=== PATIENT | male | born 1970 | race Caucasian/White ===

== ENCOUNTER 2020-07-31 02:27 | Outpatient (CLI) | payer BC, SELFPAY ==
[2020-07-31 22:41] LABS: SARS-CoV-2 RNA PCR Negative
== END 2020-07-31 02:28 | disposition home or self-care (01) ==
LOC: ANHCOVIDDT 02:27
PROVIDERS: PCP Emergency Medicine; Visit Provider Internal Medicine Gastroenterology
DX: Z01.818 Encounter for other preprocedural examination (principal); Z20.828 Contact with and (suspected) exposure to other viral communicable diseases
CPT/HCPCS: 87635; C9803; U0003

== ENCOUNTER 2020-08-03 00:08 | Day surgery (SDC) | payer BC, SELFPAY ==
[2020-07-27 15:45] VITALS: BMI 34.7
[2020-08-03 08:15] VITALS: BP 136/93; PULSE 84; RESP 16; TEMP 37.3; O2SAT 96
[2020-08-03] MEDS: LACTATED RINGERS 1,000 ML 150 ML IV CONT (08:31)
--- NOTE | 2020-08-03 08:52 | PM.HPGS ---
History of Present Illness History of Present Illness Consent: Risks, benefits, and alternatives have been discussed and questions answered. Patient agrees to proceed with procedure. Chief complaint: GERD,Neoplasm Screening Narrative: Houston Bowers is a 50 year old male with gerd on dexilant, had CT chest that showed hiatal hernia and possible esophagitis. Also needs screening colonoscopy Review of Systems Constitutional: Constitutional: Denies headache(s) and Denies weakness Eyes: Eyes: Denies blurry vision ENT: Reports Normal hearing present, Denies headache(s) and Denies neck pain Cardiovascular: Cardiovascular: Denies chest pain and Denies dyspnea Respiratory: Respiratory: Denies dyspnea Gastrointestinal: Gastrointestinal: Reports no additional gastrointestinal complaints Genitourinary: Genitourinary: Denies dysuria Musculoskeletal: Musculoskeletal: Denies neck pain Integumentary/Breasts: Skin/Breast: Denies dry skin Neurologic: Reports Normal hearing present, Denies headache(s) and Denies weakness Psychiatric: Psychiatric: Denies anxiety Endocrine: Endocrine: Denies change in body appearance Hematologic/Lymphatic: Hematologic/Lymphatic: Denies easy bleeding Allergic/Immunologic: Allergic/Immunologic: Denies urticaria PMFSH Past Medical History Medical History Abnormal CT scan Anxiety Complicated grieving Encounter for screening colonoscopy GERD (gastroesophageal reflux disease) Hiatal hernia HTN (hypertension) Surgical History Surgical History (Updated 08/03/20 @ 08:58 by Shaheed Levy MD) H/O sinus surgery History of shoulder surgery Family History Family History Other Cerebrovascular accident Family history of coronary artery disease Hypertension Social History Social History Smoking status: Never smoker Alcohol intake: never Substance use type: does not use Living arrangements: alone Spiritual care concerns: No Meds Home Medications and Allergies Home Medications Medication Instructions Recorded Confirmed Type topiramate 100 mg tablet 100 mg PO DAILY 06/24/19 07/27/20 History folic acid 1 mg tablet 1 mg PO DAILY 11/11/19 07/27/20 History hydrocodone 5 mg-acetaminophen 300 1 tablet PO BID PRN 11/11/19 07/27/20 History mg tablet rizatriptan 10 mg tablet See Rx Instructions .ROUTE 03/30/20 05/30/20 Rx .COMPLEX #30 tablet fluticasone propionate 50 1 spray NASAL DAILY 05/15/20 07/27/20 History mcg/actuation nasal spray,suspension oxymetazoline 0.05 % nasal mist 2 spray NASAL Q12H 05/15/20 07/27/20 History baclofen 20 mg tablet See Rx Instructions .ROUTE 05/30/20 07/27/20 Rx .COMPLEX #120 tablet alprazolam 0.5 mg tablet 0.5 mg PO BID PRN #30 tablet 06/29/20 07/27/20 Rx acetaminophen [Tylenol Arthritis 650 mg PO Q12H PRN 07/27/20 07/27/20 History Pain] bupropion HCl 150 mg PO DAILY 07/27/20 07/27/20 History dexlansoprazole 30 mg See Rx Instructions .ROUTE 07/27/20 07/27/20 Rx capsule,biphase delayed release .COMPLEX #90 cap diphenhydramine HCl [Benadryl] 50 mg PO HS 07/27/20 07/27/20 History escitalopram oxalate 10 mg tablet 10 mg PO DAILY #90 tablet 07/27/20 07/27/20 Rx montelukast [Singulair] 10 mg PO DAILY 07/27/20 08/03/20 History prednisone 20 mg PO DAILY 07/27/20 07/27/20 History sulfamethoxazole-trimethoprim 1 tablet PO BID 07/27/20 07/27/20 History Allergies Allergy/AdvReac Type Severity Reaction Status Date / Time No Known Allergies Allergy Verified 08/03/20 08:13 Vital Signs Vital Signs - 24 hr 08/03/20 08:15 Temperature 99.1 F Pulse Rate 84 Respiratory Rate 16 Blood Pressure 136/93 H Pulse Oximetry 96 Exam Const: General: comfortable and no acute distress HENMT: General nose exam: Normal nares present Eyes: General: appearance nor
--- NOTE | 2020-08-03 08:54 | WPDANESEPPF ---
Anes - Initial Pre Proc Eval Procedure: Operation Date: 08/03/20 09:30 Proposed Procedures p Esophagogastroduodenoscopy&Screen Colon - David Victoria MD Date/Time: 08/03/20 08:54 Surgeon: David Victoria MD Pre Op Diagnosis: GERD,Neoplasm Screening Patient Data Age: 50 Gender: M Height: 5 ft 10 in Weight: 113.6 kg Last Vital Signs Temp 37.3 C 08/03/20 08:15 Pulse 84 08/03/20 08:15 Resp 16 08/03/20 08:15 BP 136/93 H 08/03/20 08:15 Pulse Ox 96 08/03/20 08:15 Allergies Allergy/AdvReac Type Severity Reaction Status Date / Time No Known Allergies Allergy Verified 08/03/20 08:13 Home Medications Medication Instructions Recorded Confirmed Type topiramate 100 mg tablet 100 mg PO DAILY 06/24/19 07/27/20 History folic acid 1 mg tablet 1 mg PO DAILY 11/11/19 07/27/20 History hydrocodone 5 mg-acetaminophen 300 1 tablet PO BID PRN 11/11/19 07/27/20 History mg tablet rizatriptan 10 mg tablet See Rx Instructions .ROUTE 03/30/20 05/30/20 Rx .COMPLEX #30 tablet fluticasone propionate 50 1 spray NASAL DAILY 05/15/20 07/27/20 History mcg/actuation nasal spray,suspension oxymetazoline 0.05 % nasal mist 2 spray NASAL Q12H 05/15/20 07/27/20 History baclofen 20 mg tablet See Rx Instructions .ROUTE 05/30/20 07/27/20 Rx .COMPLEX #120 tablet alprazolam 0.5 mg tablet 0.5 mg PO BID PRN #30 tablet 06/29/20 07/27/20 Rx acetaminophen [Tylenol Arthritis 650 mg PO Q12H PRN 07/27/20 07/27/20 History Pain] bupropion HCl 150 mg PO DAILY 07/27/20 07/27/20 History dexlansoprazole 30 mg See Rx Instructions .ROUTE 07/27/20 07/27/20 Rx capsule,biphase delayed release .COMPLEX #90 cap diphenhydramine HCl [Benadryl] 50 mg PO HS 07/27/20 07/27/20 History escitalopram oxalate 10 mg tablet 10 mg PO DAILY #90 tablet 07/27/20 07/27/20 Rx montelukast [Singulair] 10 mg PO DAILY 07/27/20 08/03/20 History prednisone 20 mg PO DAILY 07/27/20 07/27/20 History sulfamethoxazole-trimethoprim 1 tablet PO BID 07/27/20 07/27/20 History Patient hx anesthesia problems: none Family hx anesthesia problems: none PMFSH Past Medical History Medical History Abnormal CT scan Anxiety Complicated grieving Encounter for screening colonoscopy GERD (gastroesophageal reflux disease) Hiatal hernia HTN (hypertension) Surgical History Surgical History (Updated 08/03/20 @ 08:58 by Shaheed Levy MD) H/O sinus surgery History of shoulder surgery Family History Family History Other Cerebrovascular accident Family history of coronary artery disease Hypertension Social History Social History Smoking status: Never smoker Alcohol intake: never Substance use type: does not use Living arrangements: alone Spiritual care concerns: No Anes - Eval Final PreProcedure Day of Procedure 08/03/20 08:54 Patient weight: obese Heart: regular rate and rhythm Lungs: clear to auscultation Airway: Mallampati scale class II Neurological: alert and oriented Last oral intake: >/= 8 hours ASA classification: II Emergent: no Anesthetic plan: proceed Anesthesia type and monitoring: general GIVS and standard monitoring Informed Consent: The patient's anesthetic plan and its attendant risks and benefits were discussed with the patient/family/POA. Questions were solicited and answers provided to the satisfaction of the patient/family/POA.
[2020-08-03] MEDS: BENZOCAINE (*SP) 60 ML SPRAY CAN (HURRICAINE) 1 SPRAY MUCOUS MEM (09:05)
[2020-08-03 09:37] VITALS: BP 115/70; PULSE 62; RESP 15; O2SAT 99
[2020-08-03 09:47] VITALS: BP 116/86; PULSE 55; RESP 16; O2SAT 100
[2020-08-03 09:57] VITALS: BP 127/86; PULSE 64; RESP 19; O2SAT 99
== END 2020-08-03 10:30 | disposition home or self-care (01) ==
PROVIDERS: PCP Emergency Medicine; Visit Provider Internal Medicine Gastroenterology
PROC: 0DJ08ZZ Inspection of Upper Intestinal Tract, Via Natural or Artificial Opening Endoscopic (ICD-10-PCS; CPT 43235; principal; 2020-08-03 09:30)
DX: Z12.11 Encounter for screening for malignant neoplasm of colon (principal); K29.50 Unspecified chronic gastritis without bleeding; K21.9 Gastro-esophageal reflux disease without esophagitis; K63.5 Polyp of colon; K64.8 Other hemorrhoids; F41.9 Anxiety disorder, unspecified; K44.9 Diaphragmatic hernia without obstruction or gangrene; I10 Essential (primary) hypertension; K21.00 Gastro-esophageal reflux disease with esophagitis, without bleeding
CPT/HCPCS: 43239; 45380; 88305; J2704; J7120

== ENCOUNTER 2020-09-04 22:15 | Emergency (ER) | payer BC, SELFPAY ==
--- NOTE | ~2020-09-04 | CT_ITS ---
EXAMINATION: CT brain wo con EXAM DATE: 09/05/2020 00:22 INDICATION: Severe headache. TECHNIQUE: Spiral CT of the head was performed without contrast. Axial, coronal and sagittal images were reviewed. The dose-length product (DLP) for this examination was 605.33 mGy-cm. The exposure w as tailored according to patient size, and iterative reconstruction (ASIR) was used as additional dos e reduction technique. There is no prior study for comparison. FINDINGS: There is no acute intraparenchymal hemorrhage. No evidence of intraparenchymal brain mass lesion. No evidence of acute infarction. There is no mass effect or midline shift. The ventricles are normal in size. There are no extra-axial collections. There are no acute calvarial fractures. T he orbits are unremarkable. Soft tissue is unremarkable. Mild ethmoid and maxillary mucoperiosteal thickening. Bilateral partial ethmoidectomies. IMPRESSION: 1. No acute intracranial findings. Reviewed, dictated and finalized at location A. RELIEF
--- NOTE | 2020-09-04 22:24 | ED.NAVMDI ---
HPI - Nausea/Vomiting/Diarrhea General Chief complaint: Nausea/Vomiting/Diarrhea Stated complaint: nausea, vomiting Time Seen by Provider: 09/04/20 22:24 History of Present Illness HPI Narrative: 50 yo male presents to the the for nausea. He reports that he has been haing symptoms of sinusitis for a few days. He saw his PCP today and was started on an antibiotic and steroid. After taking his first dose he became nauseated. He has not vomited. He does have a moderte headache located behind his right eye. Related Data Home Medications Medication Instructions Recorded Confirmed topiramate 100 mg tablet 100 mg PO DAILY 06/24/19 09/06/20 folic acid 1 mg tablet 1 mg PO DAILY 11/11/19 09/06/20 hydrocodone 5 mg-acetaminophen 300 1 tablet PO BID PRN 11/11/19 09/06/20 mg tablet fluticasone propionate 50 1 spray NASAL DAILY 05/15/20 09/06/20 mcg/actuation nasal spray,suspension oxymetazoline 0.05 % nasal mist 2 spray NASAL Q12H 05/15/20 09/06/20 acetaminophen [Tylenol Arthritis 650 mg PO Q12H PRN 07/27/20 09/06/20 Pain] diphenhydramine HCl [Benadryl] 50 mg PO HS 07/27/20 09/06/20 montelukast [Singulair] 10 mg PO DAILY 07/27/20 09/06/20 bupropion HCl 300 mg 24 hr tablet, 300 mg PO .daily tablet 08/06/20 09/06/20 extended release azelastine 2 spray INTRANASAL BID 09/06/20 09/06/20 Allergies Allergy/AdvReac Type Severity Reaction Status Date / Time No Known Allergies Allergy Verified 09/06/20 11:48 Review of Systems Review of Systems: All systems reviewed & are unremarkable except as noted in HPI and below Constitutional: Constitutional: Denies fever(s) and Denies weakness ENT: Denies dizziness, Reports nasal congestion and Denies sore throat Cardiovascular: Cardiovascular: Denies chest pain Respiratory: Respiratory: Denies dyspnea Gastrointestinal: Gastrointestinal: Denies abdominal pain and Reports nausea Genitourinary: Genitourinary: Denies dysuria Neurologic: Denies confusion and Denies weakness [facility] Past Medical History Medical History Abnormal CT scan Anxiety Complicated grieving Encounter for screening colonoscopy GERD (gastroesophageal reflux disease) Hiatal hernia HTN (hypertension) Surgical History Surgical History H/O sinus surgery History of shoulder surgery Family History Family History Other Cerebrovascular accident Family history of coronary artery disease Hypertension Social History Social History Smoking status: Never smoker Alcohol intake: never Substance use type: does not use Gender identity (if verbalized by the patient): Male Spiritual care concerns: No Exam Const: General: healthy appearing, no acute distress and alert Orientation/consciousness: patient oriented x3 HENMT: Ears: TM's normal bilaterally Face and sinus: sinus tenderness maxillary Eyes: Pupils: Equal, round and reactive pupils present EOM: EOMs intact bilaterally Neck: Neck: normal visual inspection and no lymphadenopathy Chest: Chest palpation & inspection: no tenderness Resp: Effort & Inspection: normal respiratory effort Auscultation: clear to auscultation bilaterally, no rales, no rhonchi and no wheezes Cardio: Jugular venous distension: no JVD Rate: regular rate Rhythm: regular rhythm Heart sounds: no murmurs GI: Inspection: non-distended GI Palp: Yes Soft to palpation and No Tenderness to palpation present (GI) Skin: General skin exam: normal color Neuro: General: patient oriented x3, moves all extremities, no focal motor deficits and CN's II-XI intact bilaterally Speech: normal speech Gait exam (Neuro): Normal gait present Extrem: General: no edema Psych: Appearance: well kempt Affect: Anxious affect present Course Vital Signs V
[2020-09-04] MEDS: SODIUM CHLORIDE 0.9% IV 1,000 ML 999 ML IV CONT (22:40)
[2020-09-04 22:43] VITALS: BP 142/105; PULSE 109; RESP 16; TEMP 37.1; O2SAT 95
[2020-09-04] MEDS: ONDANSETRON INJ 4 MG/2 ML VIAL IV PUSH (22:47)
[2020-09-04 22:48] LABS: Basophils Percent Auto 0.2 % (0.2-1.2); Eosinophils Percent Auto 0.2 % (0-4.4); Hematocrit 48.9 % (42.0-52.0); Hemoglobin 16.5 g/dL (14.0-18.0); Immature Granulocyte Absolute 0.02 K/mm3 (0.00-0.031); Immature Granulocyte Percent A 0.3 % (0-0.5); Lymphocytes Absolute Auto 1.09 K/mm3 (0.9-3.2); Lymphocytes Percent Auto 16.5 % (18.3-44.2); Mean Corpuscular HGB Conc 33.7 g/dl (32-36); Mean Corpuscular Hemoglobin 29.9 pg (26-34); Mean Corpuscular Volume 88.6 fl (80-100); Monocytes Absolute Auto 0.5 K/mm3 (0.1-0.6); Monocytes Percent Auto 7.3 % (2.6-8.5); Neutrophils Percent Auto 75.5 % (45.5-73.1); Platelet Count Result 211 k/mm3 (150-375); Red Blood Count 5.52 M/mm3 (4.6-6.20); Red Cell Distribution Width 12.2 % (11.5-14.5); White Blood Count 6.6 K/mm3 (4.5-10.0)
[2020-09-04 23:01] LABS: Alanine Aminotransferase 51 U/L (4-50); Albumin Level 4.5 g/dL (3.5-5.1); Alkaline Phosphatase 124 U/L (38-126); Anion Gap 8 mmol/L (8-16); Aspartate Amino Transferase 48 U/L (17-59); Bilirubin,Total 0.6 mg/dL (0.2-1.3); Blood Urea Nitrogen 14 mg/dL (9-20); Calcium 9.2 mg/dL (8.4-10.2); Carbon Dioxide 22 mmol/L (22-30); Chloride 105 mmol/L (98-107); Estimated CRCL calculation 130 ml/min; Estimated Glomerular Filt Rate > 60; Glucose 121 mg/dL (75-110); Lipase 165 U/L (23-300); Potassium 4.1 mmol/L (3.4-5.0); Sodium 135 mmol/L (137-145)
[2020-09-05 00:29] VITALS: BP 164/111; PULSE 102; RESP 18; TEMP 36.9; O2SAT 95
[2020-09-05] MEDS: KETOROLAC 30 MG/ML VIAL (*BKC) IV PUSH (00:39)
[2020-09-05] MEDS: METOCLOPRAMIDE HCL INJ 10 MG/2 ML VIAL IV PUSH (00:39)
[2020-09-05 02:27] VITALS: BP 139/91; PULSE 84; RESP 18; O2SAT 96
== END 2020-09-05 03:04 | disposition home or self-care (01) ==
PROVIDERS: Emergency Provider Emergency Medicine; PCP Emergency Medicine
DX: R11.2 Nausea with vomiting, unspecified (principal); R51.9 Headache, unspecified; K21.9 Gastro-esophageal reflux disease without esophagitis; I10 Essential (primary) hypertension; F41.9 Anxiety disorder, unspecified
CPT/HCPCS: 36415; 70450; 80053; 83690; 85025; 96361; 96365; 96375; 99284; J0131; J1885; J2405; J2765; J7030

== ENCOUNTER 2020-09-06 11:43 | Emergency (ER) | payer BC, SELFPAY ==
[2020-09-06 12:01] VITALS: BP 120/90; PULSE 94; RESP 20; TEMP 37.6; O2SAT 98
--- NOTE | 2020-09-06 12:16 | ED.NAVMDI ---
HPI - Nausea/Vomiting/Diarrhea General Chief complaint: Nausea/Vomiting/Diarrhea Stated complaint: Vomiting Time Seen by Provider: 09/06/20 12:05 History of Present Illness HPI Narrative: Houston Bowers darryl 50 yo male with a PMH of depression, chronic pain, who has had a low-grade fever, nausea, vomiting x2 days. He feels exhausted and just generally feels poorly. Seen by primary care physician yesterday who gave him Zithromax and Zofran; is here to be evaluated, including Covid Related Data Home Medications Medication Instructions Recorded Confirmed topiramate 100 mg tablet 100 mg PO DAILY 06/24/19 09/06/20 folic acid 1 mg tablet 1 mg PO DAILY 11/11/19 09/06/20 hydrocodone 5 mg-acetaminophen 300 1 tablet PO BID PRN 11/11/19 09/06/20 mg tablet fluticasone propionate 50 1 spray NASAL DAILY 05/15/20 09/06/20 mcg/actuation nasal spray,suspension oxymetazoline 0.05 % nasal mist 2 spray NASAL Q12H 05/15/20 09/06/20 acetaminophen [Tylenol Arthritis 650 mg PO Q12H PRN 07/27/20 09/06/20 Pain] diphenhydramine HCl [Benadryl] 50 mg PO HS 07/27/20 09/06/20 montelukast [Singulair] 10 mg PO DAILY 07/27/20 09/06/20 bupropion HCl 300 mg 24 hr tablet, 300 mg PO .daily tablet 08/06/20 09/06/20 extended release azelastine 2 spray INTRANASAL BID 09/06/20 09/06/20 Allergies Allergy/AdvReac Type Severity Reaction Status Date / Time No Known Allergies Allergy Verified 09/06/20 11:48 Review of Systems Review of Systems: Narrative: has fever, chills, sweats. EYES: Denies visual changes, redness, discharge. Fatigue ENT: Denies rhinorrhea, congestion, sore throat, otalgia. CARDIOVASCULAR: Denies chest pain, palpitations, edema. RESPIRATORY: Denies dyspnea, wheezing, cough GASTROINTESTINAL: Denies abdominal pain, has nausea, vomiting, diarrhea. GENITOURINARY: Denies dysuria, hematuria, abnormal discharge SKIN: Denies rash or itching. NEUROLOGIC: Denies numbness, or focal weakness. PSYCHIATRIC: Denies anxiety or depression. [facility] Past Medical History Medical History Abnormal CT scan Anxiety Complicated grieving Encounter for screening colonoscopy GERD (gastroesophageal reflux disease) Hiatal hernia HTN (hypertension) Surgical History Surgical History H/O sinus surgery History of shoulder surgery Family History Family History Other Cerebrovascular accident Family history of coronary artery disease Hypertension Social History Social History Smoking status: Never smoker Alcohol intake: never Substance use type: does not use Gender identity (if verbalized by the patient): Male Spiritual care concerns: No Comments At time of signature, I agree with nursing past medical, surgical, social and family history. There is no relevant family history pertinent to the presenting complaint. Exam Narrative: Exam Narrative: GENERAL: This is a well-nourished, well-developed patient, looks like he is not feeling well HEAD: normocephalic, atraumatic. EYES: Sclera clear/white. Vision is grossly intact. EARS: External ears normal, . Hearing grossly intact. NOSE: External nose normal without nasal discharge, nares without redness, no rhinorrhea. THROAT: Mucous membranes moist, posterior pharynx erythema NECK: Neck supple, CARDIOVASCULAR: Regular rate and rhythm without murmurs, gallops, or rubs. Heart rate 94 RESPIRATORY: Clear to auscultation. Breath sounds equal bilaterally. No wheezes, rales, or rhonchi. O2 sats 98 GASTROINTESTINAL: Abdomen soft, SKIN: warm, intact with no suspicious lesions or rash, good texture and turgor. NEURO: awake, alert, and oriented to person, place and time. There were no obvious focal neurologic abnormalities. Steady gait EXTREMITIES: Normal range of motion. SUNITA
== END 2020-09-06 12:40 | disposition home or self-care (01) ==
PROVIDERS: Emergency Provider Nurse Practitioner; PCP Emergency Medicine
DX: U07.1 COVID-19 (principal); F41.9 Anxiety disorder, unspecified; K21.9 Gastro-esophageal reflux disease without esophagitis; I10 Essential (primary) hypertension
CPT/HCPCS: 87426; 99213; C9803; G0463

== ENCOUNTER → 2020-10-04 14:01 | Outpatient (CLI) | payer BC, SELFPAY ==
--- NOTE | ~2020-10-04 | XR_ITS ---
XR chest 2V DATE: 10/04/2020 14:16 INDICATION: Covid 19 pneumonia TECHNIQUE: 2 views COMPARISON: October 14, 2014 PA and lateral chest FINDINGS: Status post lower anterior cervical spine surgical fusion. Normal heart size. No hilar or mediastinal enlargement. No pulmonary infiltrate or consolidation, ple ural effusion or pulmonary vascular congestion or pneumothorax. IMPRESSION: No active cardiopulmonary disease Reviewed, dictated and finalized at location B. RANS ADVISER
== END ==
PROVIDERS: PCP Emergency Medicine; Visit Provider Emergency Medicine
DX: U07.1 COVID-19 (principal)
CPT/HCPCS: 71046

== ENCOUNTER → 2020-12-11 15:23 | Outpatient (CLI) | payer BC, SELFPAY ==
--- NOTE | ~2020-12-11 | MR_ITS ---
EXAMINATION: MR cervical spine wo/w con DATE: 12/11/2020 17:22 INDICATION: Cervical radiculopathy. Neck pain. TECHNIQUE: Magnetic resonance imaging (MRI) of the cervical spine was performed without and with 20 m L MultiHance intravenous contrast. Sequences included sagittal and axial T2-weighted FSE, sagittal ST IR FSE, and sagittal and axial T1-weighted FSE. Postcontrast sequences included sagittal and axial T1 -weighted FS FSE. COMPARISON: Cervical spine MRI 08/04/2011 FINDINGS: Bone alignment is normal. There are changes of anterior fusion procedure at C6-C7 with meta l artifact. Vertebral body heights and intervertebral disc heights are normal. The visualized portion s of the spinal cord demonstrate normal signal intensity. The following disc levels are specifically discussed: C2-C3: The disc does not extend beyond the endplate margin. There is no uncovertebral joint osteoarth ritis. There is moderate right and mild left facet joint osteoarthritis. There is mild right neural f oraminal stenosis. There is no central canal stenosis. C3-C4: There is a small central extrusion. There is mild bilateral uncovertebral joint osteoarthritis . There is severe left facet joint osteoarthritis. There is no neural foraminal stenosis. There is no central canal stenosis. C4-C5: There is a small central extrusion. There is no uncovertebral joint osteoarthritis. There is n o facet joint osteoarthritis. There is no neural foraminal stenosis. There is no central canal stenos is. C5-C6 through C7-T1: Obscured by metal artifact. IMPRESSION: 1. Anterior fusion procedure at C6-C7. Metal artifact obscures C5-T1. 2. Mild cervical spondylosis. Reviewed, dictated and finalized at location A.
[2020-12-11 16:06] LABS: Estimated Glomerular Filt Rate > 60
== END ==
PROVIDERS: PCP Emergency Medicine; Visit Provider Nurse Practitioner Family
DX: M96.1 Postlaminectomy syndrome, not elsewhere classified (principal); M47.22 Other spondylosis with radiculopathy, cervical region; Z98.1 Arthrodesis status
CPT/HCPCS: 72156; A9577

== ENCOUNTER → 2020-12-13 15:41 | Outpatient (CLI) | payer BC, SELFPAY ==
--- NOTE | ~2020-12-13 | XR_ITS ---
EXAMINATION: XR lumbar spine min 4V DATE: 12/13/2020 15:59 INDICATION: Lumbago TECHNIQUE: Anteroposterior and lateral in neutral, flexion and extension views of the lumbar spine, a nd cone-down lateral view of the lumbosacral junction were obtained. COMPARISON: Lumbar spine MR dated 06/03/2011 FINDINGS: L5-S1 anterior spinal fusion with interbody bone graft cages. There is also a fixation device positio cristina between the L4 and L5 spinous processes. 4 mm retrolisthesis L1 on L2 which is unchanged with fle xion and extension. Chronic L1 compression fracture with 40% anterior vertebral body height loss. Mil d disc height loss at L1-L2 and L4-L5. Sacrum and bilateral sacroiliac joints are unremarkable. Mild right hip osteoarthritis. Cholecystectomy clips in right upper quadrant. IMPRESSION: 1. Mild lumbar spondylosis with 4 mm retrolisthesis L1 on L2 which remains unchanged with flexion and extension. 2. Anterior spinal fusion with bone graft cages at L5-S1 and interspinous process fixation device bet ween L4 and L5. Reviewed, dictated and finalized at location A. IMPRESSION: 1. Mild lumbar spondylosis with 4 mm retrolisthesis L1 on L2 which remains unch anged with flexion and extension. 2. Anterior spinal fusion with bone graft cages at L5-S1 and interspinous proce ss fixation device between L4 and L5.
== END ==
PROVIDERS: Visit Provider Nurse Practitioner Family
DX: M47.26 Other spondylosis with radiculopathy, lumbar region (principal); M96.1 Postlaminectomy syndrome, not elsewhere classified; Z98.1 Arthrodesis status
CPT/HCPCS: 72110

== ENCOUNTER → 2021-01-22 02:07 | Outpatient (CLI) | payer BC, SELFPAY ==
[2021-01-22 23:32] LABS: SARS-CoV-2 RNA PCR Negative
== END ==
PROVIDERS: Visit Provider Internal Medicine Gastroenterology
DX: Z01.812 Encounter for preprocedural laboratory examination (principal); Z20.822 Contact with and (suspected) exposure to COVID-19
CPT/HCPCS: C9803; U0003; U0005

== ENCOUNTER 2021-01-25 01:00 | Day surgery (SDC) | payer BC, SELFPAY ==
[2021-01-18 08:46] VITALS: BMI 36.0
[2021-01-25 11:22] VITALS: BP 135/87; PULSE 61; RESP 20; TEMP 36.7; O2SAT 97; BMI 36.6
[2021-01-25] MEDS: LACTATED RINGERS 1,000 ML 150 ML IV CONT (11:28)
--- NOTE | 2021-01-25 11:37 | WPDANESEPPF ---
Anes - Initial Pre Proc Eval Procedure: Operation Date: 01/25/21 13:00 Proposed Procedures p Esophagogastroduodenoscopy - David Victoria MD Date/Time: 01/25/21 11:37 Surgeon: David Victoria MD Pre Op Diagnosis: esophagitis Patient Data Age: 50 Gender: M Height: 5 ft 10 in Weight: 115.9 kg Last Vital Signs Temp 98.0 F 01/25/21 11:22 Pulse 61 01/25/21 11:22 Resp 20 01/25/21 11:22 BP 135/87 01/25/21 11:22 Pulse Ox 97 01/25/21 11:22 Allergies Allergy/AdvReac Type Severity Reaction Status Date / Time No Known Allergies Allergy Verified 01/25/21 11:21 Home Medications Medication Instructions Recorded Confirmed Type topiramate 100 mg tablet 100 mg PO DAILY 06/24/19 01/18/21 History rizatriptan 10 mg tablet See Rx Instructions .ROUTE 03/30/20 01/18/21 Rx .COMPLEX #30 tablet fluticasone propionate 50 1 spray NASAL DAILY 05/15/20 01/18/21 History mcg/actuation nasal spray,suspension oxymetazoline 0.05 % nasal mist 2 spray NASAL Q12H PRN 05/15/20 01/18/21 History baclofen 20 mg tablet See Rx Instructions .ROUTE 05/30/20 01/18/21 Rx .COMPLEX #120 tablet acetaminophen [Tylenol Arthritis 650 mg PO Q12H PRN 07/27/20 01/18/21 History Pain] escitalopram oxalate 10 mg tablet 10 mg PO DAILY #90 tablet 07/27/20 01/18/21 Rx montelukast [Singulair] 10 mg PO DAILY 07/27/20 01/18/21 History dexlansoprazole 30 mg 30 mg PO BID 90 Days #180 cap 08/03/20 01/18/21 Rx capsule,biphase delayed release azelastine 2 spray INTRANASAL BID 09/06/20 01/18/21 History cetirizine [Zyrtec] 10 mg PO DAILY PRN #20 tablet 09/06/20 01/18/21 Rx alprazolam [Xanax] 0.5 mg PO DAILY PRN 01/18/21 01/18/21 History Patient hx anesthesia problems: none Family hx anesthesia problems: none PMFSH Past Medical History Medical History Abnormal CT scan Anxiety Complicated grieving Encounter for screening colonoscopy GERD (gastroesophageal reflux disease) Hiatal hernia HTN (hypertension) Surgical History Surgical History H/O sinus surgery History of shoulder surgery Family History Family History Other Cerebrovascular accident Family history of coronary artery disease Hypertension Social History Social History Smoking status: Never smoker Alcohol intake: never Alcohol use details: socially Substance use type: does not use Living arrangements: with family Gender identity (if verbalized by the patient): Male Spiritual care concerns: No Anes - Eval Final PreProcedure Day of Procedure 01/25/21 11:37 Patient weight: obese Heart: regular rate and rhythm Lungs: clear to auscultation Airway: Mallampati scale class II Neurological: alert and oriented Last oral intake: >/= 8 hours ASA classification: II Emergent: no Anesthetic plan: proceed Anesthesia type and monitoring: general GIVS and standard monitoring Informed Consent: The patient's anesthetic plan and its attendant risks and benefits were discussed with the patient/family/POA. Questions were solicited and answers provided to the satisfaction of the patient/family/POA.
--- NOTE | 2021-01-25 12:56 | PM.HPGS ---
History of Present Illness History of Present Illness Consent: Risks, benefits, and alternatives have been discussed and questions answered. Patient agrees to proceed with procedure. Chief complaint: esophagitis Narrative: Houston Bowers is a 50 year old male with erosive esophagitis and hiatal hernia, better since ppi increased bid. Here to reassess Review of Systems Constitutional: Constitutional: Denies headache(s) and Denies weakness Eyes: Eyes: Denies blurry vision ENT: Reports Normal hearing present, Denies headache(s) and Denies neck pain Cardiovascular: Cardiovascular: Denies chest pain and Denies dyspnea Respiratory: Respiratory: Denies dyspnea Gastrointestinal: Gastrointestinal: Reports no additional gastrointestinal complaints Genitourinary: Genitourinary: Denies dysuria Musculoskeletal: Musculoskeletal: Denies neck pain Integumentary/Breasts: Skin/Breast: Denies dry skin Neurologic: Reports Normal hearing present, Denies headache(s) and Denies weakness Psychiatric: Psychiatric: Denies anxiety Endocrine: Endocrine: Denies change in body appearance Hematologic/Lymphatic: Hematologic/Lymphatic: Denies easy bleeding Allergic/Immunologic: Allergic/Immunologic: Denies urticaria PMFSH Past Medical History Medical History Abnormal CT scan Anxiety Complicated grieving Encounter for screening colonoscopy GERD (gastroesophageal reflux disease) Hiatal hernia HTN (hypertension) Surgical History Surgical History H/O sinus surgery History of shoulder surgery Family History Family History Other Cerebrovascular accident Family history of coronary artery disease Hypertension Social History Social History Smoking status: Never smoker Alcohol intake: never Alcohol use details: socially Substance use type: does not use Living arrangements: with family Gender identity (if verbalized by the patient): Male Spiritual care concerns: No Meds Home Medications and Allergies Home Medications Medication Instructions Recorded Confirmed Type topiramate 100 mg tablet 100 mg PO DAILY 06/24/19 01/18/21 History rizatriptan 10 mg tablet See Rx Instructions .ROUTE 03/30/20 01/18/21 Rx .COMPLEX #30 tablet fluticasone propionate 50 1 spray NASAL DAILY 05/15/20 01/18/21 History mcg/actuation nasal spray,suspension oxymetazoline 0.05 % nasal mist 2 spray NASAL Q12H PRN 05/15/20 01/18/21 History baclofen 20 mg tablet See Rx Instructions .ROUTE 05/30/20 01/18/21 Rx .COMPLEX #120 tablet acetaminophen [Tylenol Arthritis 650 mg PO Q12H PRN 07/27/20 01/18/21 History Pain] escitalopram oxalate 10 mg tablet 10 mg PO DAILY #90 tablet 07/27/20 01/18/21 Rx montelukast [Singulair] 10 mg PO DAILY 07/27/20 01/18/21 History dexlansoprazole 30 mg 30 mg PO BID 90 Days #180 cap 08/03/20 01/18/21 Rx capsule,biphase delayed release azelastine 2 spray INTRANASAL BID 09/06/20 01/18/21 History cetirizine [Zyrtec] 10 mg PO DAILY PRN #20 tablet 09/06/20 01/18/21 Rx alprazolam [Xanax] 0.5 mg PO DAILY PRN 01/18/21 01/18/21 History Allergies Allergy/AdvReac Type Severity Reaction Status Date / Time No Known Allergies Allergy Verified 01/25/21 11:21 Vital Signs Vital Signs - 24 hr 01/25/21 11:22 Temperature 98.0 F Pulse Rate 61 Respiratory Rate 20 Blood Pressure 135/87 Pulse Oximetry 97 Exam Const: General: comfortable and no acute distress HENMT: General nose exam: Normal nares present Eyes: General: appearance normal, both eyes and all related structures Neck: Neck: no JVD Resp: Auscultation: clear to auscultation bilaterally Cardio: Rate: regular rate Rhythm: regular rhythm GI: Inspection: non-distended GI Palp: Yes Soft to palpation S
[2021-01-25] MEDS: BENZOCAINE (*SP) 60 ML SPRAY CAN (HURRICAINE) 1 SPRAY MUCOUS MEM (13:02)
[2021-01-25 13:04] VITALS: BP 129/91; PULSE 61; RESP 18; O2SAT 100
[2021-01-25 13:14] VITALS: BP 133/91; PULSE 59; RESP 18; O2SAT 100
[2021-01-25 13:24] VITALS: BP 130/90; PULSE 62; RESP 18; O2SAT 100
== END 2021-01-25 13:40 | disposition home or self-care (01) ==
PROVIDERS: PCP Emergency Medicine; Visit Provider Internal Medicine Gastroenterology
PROC: 0DJ08ZZ Inspection of Upper Intestinal Tract, Via Natural or Artificial Opening Endoscopic (ICD-10-PCS; CPT 43235; principal; 2021-01-25 13:00)
DX: K22.10 Ulcer of esophagus without bleeding (principal); K21.00 Gastro-esophageal reflux disease with esophagitis, without bleeding; K44.9 Diaphragmatic hernia without obstruction or gangrene; F41.9 Anxiety disorder, unspecified; I10 Essential (primary) hypertension; E66.9 Obesity, unspecified; Z68.36 Body mass index [BMI] 36.0-36.9, adult
CPT/HCPCS: 43235; J2704; J7120

== ENCOUNTER 2021-02-22 09:27 | Outpatient (CLI) | payer BC, SELFPAY ==
--- NOTE | ~2021-02-22 | XR_ITS ---
XR UGIAC w barium swallow DATE: 02/22/2021 09:58 INDICATION: Gastroesophageal reflux TECHNIQUE: Fluoroscopy and rapid sequence spot images and report and radiographs during oral ingestio n of barium. Air-contrast upper gastrointestinal series. 1.5 minutes fluoroscopy time 103.33 DAP 149 images COMPARISON: None FINDINGS: Status post anterior cervical surgical spinal fusion at C6-7. There is normal deglutition and esophageal peristalsis. No esophageal stricture or intraluminal mass lesion or ulceration or diverticulum is evident. There is a small sliding hiatal hernia. There was mild spontaneous gastroesophageal reflux during the examination. Mild dilatation of the distal esophagus. No gastric intraluminal mass lesion or ulceration or erosion is evident. Normal duodenal bulb, withou t scarring or ulcer. Normal duodenal C-loop. The proximal small bowel mucosal pattern appears normal. Surgical clips at the gallbladder fossa, consistent with cholecystectomy.. IMPRESSION: Small sliding hiatal hernia and mild spontaneous gastroesophageal reflux Status post cholecystectomy Reviewed, dictated and finalized at [facility]. Reviewed, dictated and finalized at [facility]. IMPRESSION: Small sliding hiatal hernia and mild spontaneous gastroesophageal r eflux Status post cholecystectomy
== END 2021-02-22 09:28 | disposition home or self-care (01) ==
LOC: ANHIMG 09:30
PROVIDERS: PCP Emergency Medicine; Visit Provider Surgery
DX: K21.00 Gastro-esophageal reflux disease with esophagitis, without bleeding (principal); Z90.49 Acquired absence of other specified parts of digestive tract; K44.9 Diaphragmatic hernia without obstruction or gangrene; K21.9 Gastro-esophageal reflux disease without esophagitis
CPT/HCPCS: 74246

== ENCOUNTER → 2021-02-22 14:21 | Outpatient (CLI) | payer BC, SELFPAY ==
--- NOTE | ~2021-02-22 | MR_ITS ---
EXAMINATION: MR lumbar spine wo con DATE: 02/22/2021 14:52 INDICATION: Low back pain. TECHNIQUE: Magnetic resonance imaging (MRI) of the lumbar spine was performed without intravenous con trast. Sequences included sagittal T2-weighted FSE, sagittal STIR FSE, sagittal T1-weighted FSE, and axial T2-weighted FSE. COMPARISON: Lumbar spine MRI 06/03/2011 FINDINGS: There is 3 mm retrolisthesis of L1 on L2, L2 on L3, and L3 on L4. There are changes of ante rior fusion procedure at L5-S1 with interbody device. There is a chronic compression fracture of L1 w ith 2/5 loss of height. There is mildly decreased disc height at L1-L2, L2-L3, and L4-L5. The distal spinal cord signal intensity is normal. The conus medullaris is at L1. The following disc levels are specifically discussed: L1-L2: The disc is bulging and has an annular fissure. There is no facet joint osteoarthritis. There is mild left neural foraminal stenosis. There is mild central canal stenosis. L2-L3: There is a central extrusion. There is no facet joint osteoarthritis. There is no neural eduardo inal stenosis. There is mild central canal stenosis. L3-L4: The disc does not extend beyond the endplate margin. There is no facet joint osteoarthritis. T here is no neural foraminal stenosis. There is no central canal stenosis. L4-L5: There is a right foraminal protrusion. There is mild bilateral facet joint osteoarthritis. The re is mild bilateral neural foraminal stenosis. There is no central canal stenosis. L5-S1: There is mild bilateral facet joint osteoarthritis. There is mild bilateral neural foraminal s tenosis. There is no central canal stenosis. IMPRESSION: 1. Mild lumbar spondylosis, worsened from 06/03/2011. 2. Anterior fusion procedure at L5-S1. Reviewed, dictated and finalized at location [facility].
== END ==
PROVIDERS: PCP Emergency Medicine; Visit Provider Nurse Practitioner Family
DX: M47.896 Other spondylosis, lumbar region (principal); Z98.1 Arthrodesis status
CPT/HCPCS: 72148

== ENCOUNTER 2021-06-03 10:51 | Emergency (ER) | payer BC, SELFPAY ==
[2021-06-03 10:58] VITALS: BP 156/91; PULSE 77; RESP 16; TEMP 37.1; O2SAT 100
--- NOTE | 2021-06-03 11:33 | ED.GENADULT ---
HPI - General Adult General Chief complaint: Unspecified Stated complaint: elevated bp/back pain/chest pain Time Seen by Provider: 06/03/21 11:25 Source: patient and RN notes reviewed Mode of arrival: ambulatory Limitations: no limitations and language barrier History of Present Illness HPI narrative: Houston is a 51-year-old male [facility] of high blood pressure. Patient was seen at [facility] pain clinic this morning had a high blood pressure he states 170/110 so he was he needed to come to the express care or ER for further evaluation. Patient states he called his primary care who told him to go to the [facility]. Patient arrives here today; he is anxious blood pressure was 156/91. Patient states he is having increased back pain throughout the weekend which contributed to his high blood pressure. Patient states this he is anxious and in pain so his blood pressure is up. Patient states he has been on a 2-week outage at [employer] still working 5/12 hour shifts. . Patient states he takes Tylenol and baclofen on a daily basis and is not taking any pain meds at this time as he is preparing to have another surgery. Patient rates his pain at 3 out of 10 at present states it was 10 out of 10 when he walked in the pain clinic this morning. Patient denies need for any medication. Patient states he must wean off his Xanax and other meds before he can have his back surgery. Patient has had a failed L5-S1 fusion in 1999 has had 2 neck surgeries and has chronic back pain. Related Data Home Medications Medication Instructions Recorded Confirmed topiramate 100 mg tablet 100 mg PO DAILY 06/24/19 06/03/21 fluticasone propionate 50 1 spray NASAL DAILY 05/15/20 06/03/21 mcg/actuation nasal spray,suspension acetaminophen [Tylenol Arthritis 650 mg PO Q12H PRN 07/27/20 06/03/21 Pain] duloxetine 30 mg capsule,delayed 60 mg PO DAILY 02/11/21 06/03/21 release baclofen 20 mg PO PRN PRN 06/03/21 06/03/21 bupropion HCl 300 mg PO DAILY 06/03/21 06/03/21 buspirone 5 mg PO DAILY 06/03/21 06/03/21 dexlansoprazole [Dexilant] 30 mg PO BID 06/03/21 06/03/21 escitalopram oxalate 10 mg PO DAILY 06/03/21 06/03/21 Allergies Allergy/AdvReac Type Severity Reaction Status Date / Time No Known Allergies Allergy Verified 06/03/21 11:13 Review of Systems Review of Systems: CONSTITUTIONAL: Denies body aches, fever, chills, or sweats. EYES: Denies visual changes, redness, or discharge. ENT: Denies rhinorrhea, congestion, sore throat, or otalgia. CARDIOVASCULAR: Denies chest pain, palpitations, or edema. RESPIRATORY: Denies cough or dyspnea. GASTROINTESTINAL: Denies abdominal pain, nausea, vomiting, or diarrhea. GENITOURINARY: Denies dysuria or hematuria. SKIN: Denies rash, itching, or wounds. MUSCULOSKELETAL: + back pain, denies joint pain, or myalgia. NEUROLOGIC: Denies headache, numbness, tingling, or weakness. PSYCH: Denies depression or anxiety. All systems reviewed & are unremarkable except as noted in HPI and below PMFSH Past Medical History Medical History Abnormal CT scan Anxiety Complicated grieving Encounter for screening colonoscopy GERD (gastroesophageal reflux disease) Hiatal hernia HTN (hypertension) Surgical History Surgical History H/O sinus surgery History of shoulder surgery Family History Family History Other Cerebrovascular accident Family history of coronary artery disease Hypertension Social History Social History Social History: Patient drinks 2-3 cups of caffeine weekly. Smoking status: Never smoker Second hand tobacco smoke exposure: No Alcohol intake: current Alcohol use details: Patient drinks alcohol rarely. Substa
== END 2021-06-03 11:55 | disposition home or self-care (01) ==
PROVIDERS: Emergency Provider Nurse Practitioner Family; PCP Emergency Medicine
DX: M54.50 Low back pain, unspecified (principal); I10 Essential (primary) hypertension; K21.9 Gastro-esophageal reflux disease without esophagitis; F41.9 Anxiety disorder, unspecified
CPT/HCPCS: 99212; G0463

== ENCOUNTER 2021-08-18 10:24 | Emergency (ER) | payer OTHER, BC, SELFPAY ==
--- NOTE | ~2021-08-18 | XR_ITS ---
EXAMINATION: XR ankle LT min 3V EXAM DATE: 08/18/2021 11:36 INDICATION: PAIN lat Lt ankle x 1.5 wks;no known injury. TECHNIQUE: Left ankle frontal, lateral and oblique projections obtained and reviewed. There is no pr ior study for comparison. FINDINGS: The left ankle mortise appears intact. No evidence osteochondral defect or appreciable art hritis. There are no acute fractures or dislocations identified. There is no subcutaneous gas. The soft tissue is unremarkable. There are no radiopaque foreign bodies. IMPRESSION: 1. Unremarkable XR ankle LT min 3V exam. Reviewed, dictated and finalized at location A. ICAL TECHNICIAN
[2021-08-18 10:43] VITALS: BP 173/109; PULSE 74; RESP 16; TEMP 36.2; O2SAT 98
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
[2021-08-18] MEDS: KETOROLAC (*BKC) 60 MG/2 ML VIAL IM (11:39)
== END 2021-08-18 12:17 | disposition home or self-care (01) ==
PROVIDERS: Emergency Provider Nurse Practitioner; PCP Emergency Medicine
DX: M25.572 Pain in left ankle and joints of left foot (principal); S93.402A Sprain of unspecified ligament of left ankle, initial encounter; X58.XXXA Exposure to other specified factors, initial encounter; F41.9 Anxiety disorder, unspecified; K21.9 Gastro-esophageal reflux disease without esophagitis; I10 Essential (primary) hypertension
CPT/HCPCS: 73610; 96372; 99213; G0463; J1885

== ENCOUNTER 2021-10-19 09:16 | Outpatient (CLI) | payer BC, SELFPAY ==
--- NOTE | ~2021-10-19 | XR_ITS ---
EXAMINATION: XR chest 2V 10/19/2021 09:52 INDICATION: Reflux. Hernia repair. PROCEDURE: 2 view chest COMPARISON: 10/04/2020 FINDINGS: The lungs are clear. The cardiomediastinal silhouette is within normal limits. There are no pleural effusions. There is no pneumothorax suspected. IMPRESSION: 1: NO ACUTE CARDIOPULMONARY DISEASE. Reviewed, dictated and finalized at location A. OR PROGRAM ANALYST
--- NOTE | 2021-10-19 09:36 | ECG_ITS ---
Measurements Intervals [place] Rate: 71 P: 6 FL: 184 QRS: 49 QRSD: 109 T: 18 QT: 366 QTc: 398 Interpretive Statements SINUS RHYTHM NORMAL ECG NO PREVIOUS ECG AVAILABLE FOR COMPARISON Electronically Signed On 10-19-2021 14:31:15 BUSINESS SERVICES ANALYST by Mateo Bray M.D.
[2021-10-19 09:42] LABS: Basophils Absolute Auto 0.1 K/mm3 (0.0-0.1); Eosinophils Absolute Auto 0.3 K/mm3 (0-0.3); Hematocrit 44.4 % (42.0-52.0); Hemoglobin 14.6 g/dL (14.0-18.0); Immature Granulocyte Absolute 0.01 K/mm3 (0.00-0.031); Immature Granulocyte Percent A 0.2 % (0-0.5); Lymphocytes Absolute Auto 1.25 K/mm3 (0.9-3.2); Lymphocytes Percent Auto 25.2 % (18.3-44.2); Mean Corpuscular HGB Conc 32.9 g/dl (32-36); Mean Corpuscular Volume 91.2 fl (80-100); Monocytes Absolute Auto 0.6 K/mm3 (0.1-0.6); Monocytes Percent Auto 12.1 % (2.6-8.5); Neutrophils Absolute Auto 2.8 K/mm3 (1.3-6.7); Neutrophils Percent Auto 56.5 % (45.5-73.1); Platelet Count Result 229 k/mm3 (150-375); Red Blood Count 4.87 M/mm3 (4.6-6.20); Red Cell Distribution Width 12.6 % (11.5-14.5)
[2021-10-19 09:55] LABS: Anion Gap 6 mmol/L (8-16); Blood Urea Nitrogen 13 mg/dL (9-20); Calcium 8.9 mg/dL (8.4-10.2); Carbon Dioxide 28 mmol/L (22-30); Chloride 109 mmol/L (98-107); Estimated Glomerular Filt Rate > 60; Glucose 92 mg/dL (65-110); Potassium 4.4 mmol/L (3.4-5.0); Sodium 143 mmol/L (137-145)
== END 2021-10-19 09:17 | disposition home or self-care (01) ==
LOC: ANHLAB 09:18
PROVIDERS: PCP Emergency Medicine; Visit Provider Surgery
DX: K21.00 Gastro-esophageal reflux disease with esophagitis, without bleeding (principal); K21.9 Gastro-esophageal reflux disease without esophagitis; Z01.818 Encounter for other preprocedural examination
CPT/HCPCS: 36415; 71046; 80048; 85025; 86850; 86900; 86901; 93005

== ENCOUNTER 2021-10-22 11:20 | Emergency (ER) | payer BC, SELFPAY ==
--- NOTE | 2021-10-22 11:22 | ED.URI ---
HPI - URI/Sore Throat General Chief Complaint: Upper Respiratory Infection Stated Complaint: SINUS CONGESTION/DRAINAGE Time Seen by Provider: 10/22/21 11:28 Source: patient and RN notes reviewed Mode of arrival: ambulatory Limitations: no limitations History of Present Illness HPI Narrative: 51-year-old male presents with concern for sinus pain, pressure, nasal drainage, dental and jaw pain. Reports history of sinus surgery last year for chronic sinusitis. He reports foul tasting mucus. He denies fever, body aches, chills, sweats. Reports he took Mucinex which helps relieve some sinus pressure. MD elicited complaint: nasal congestion Related Data Home Medications Medication Instructions Recorded Confirmed topiramate 100 mg tablet 100 mg PO DAILY 06/24/19 10/18/21 acetaminophen [Tylenol Arthritis 650 mg PO Q12H PRN 07/27/20 10/18/21 Pain] vilazodone 20 mg tablet 40 mg PO DAILY 07/18/21 10/18/21 baclofen See Rx Instructions .ROUTE 10/18/21 10/18/21 .COMPLEX PRN glucosamine rincon 2KCl-chondroit 1 cap PO HS 10/18/21 10/18/21 [Glucosamine Sulf-Chondroitin] rizatriptan See Rx Instructions .ROUTE 10/18/21 10/18/21 .COMPLEX PRN Allergies Allergy/AdvReac Type Severity Reaction Status Date / Time No Known Allergies Allergy Verified 10/18/21 14:36 Review of Systems Review of Systems: CONSTITUTIONAL: Denies malaise, chills, sweats, or fever. EYES: Denies visual changes, redness, or discharge. ENT: Reports rhinorrhea, congestion, sinus pain. Denies otalgia and sore throat. CARDIOVASCULAR: Denies chest pain, palpitations, or edema. RESPIRATORY: Reports cough. Denies dyspnea. GASTROINTESTINAL: Denies abdominal pain, nausea, vomiting, diarrhea SKIN: Denies rash or itching. MUSCULOSKELETAL: Denies myalgia. NEUROLOGIC: Denies headache. All systems reviewed & are unremarkable except as noted in HPI and below PMFSH Past Medical History Medical History Abnormal CT scan Anxiety Complicated grieving Encounter for screening colonoscopy GERD (gastroesophageal reflux disease) Hiatal hernia History of frequent headaches HTN (hypertension) Surgical History Surgical History H/O sinus surgery History of cervical spinal arthrodesis History of cholecystectomy History of lumbar spinal fusion History of shoulder surgery History of shoulder surgery History of sinus surgery Family History Family History Other Cerebrovascular accident Family history of coronary artery disease Hypertension Social History Social History Social History: Patient drinks 2-3 cups of caffeine weekly. Smoking status: Never smoker Second hand tobacco smoke exposure: No Alcohol intake: current Alcohol use details: Patient drinks alcohol rarely. 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 There is no relevant family history pertinent to the presenting complaint Exam Narrative: GENERAL: Well-appearing, well-nourished, and in no acute distress. HEAD: Normocephalic EYES: PERRLA, conjunctivae clear ENT: Nares clear, turbinates edematous and erythematous, sinus tenderness. Mucous membranes moist. TM pearly trinh with dull light reflex bilaterally; no tragal tenderness. Oropharynx not erythematous without lesions. Tonsils not enlarged and without exudate, no drooling, no hoarseness, no trismus, uvula midline. NECK: Supple. No
[2021-10-22 11:25] VITALS: BP 149/87; PULSE 80; RESP 16; TEMP 36.9; O2SAT 100
== END 2021-10-22 11:43 | disposition home or self-care (01) ==
PROVIDERS: Emergency Provider Nurse Practitioner; PCP Emergency Medicine
DX: J32.9 Chronic sinusitis, unspecified (principal); K21.9 Gastro-esophageal reflux disease without esophagitis; I10 Essential (primary) hypertension
CPT/HCPCS: 99213; G0463

== ENCOUNTER 2021-10-25 08:43 | Inpatient (IN) | payer BC, SELFPAY ==
[2021-10-18 14:41] VITALS: BMI 37.9
--- NOTE | 2021-10-18 14:45 | PC.NURSE ---
Report to the Outpatient Waiting Room, entrance under the green pavilion located off [facility], at time __1000_ on date 10-24-2021. OR Time: __1200_. - You and your visitor will be asked a series of questions to screen for COVID 19 for your protection. - A mask is required within the hospital. Preoperative COVID Testing Requirements: No COVID Test needed if: (proof is required; if not received patient will have Rapid Test prior to entry) - Patient has received COVID Vaccine at least 14 days prior to procedure date or - Patient has positive COVID test result within last 90 days of surgery date. COVID Test needed if above criteria is not met If not COVID vaccinated a COVID test must be conducted within 72 hours of surgery and patient is asked to isolate self from time of testing until procedure. You will go to the [facility] for your COVID testing. The [facility] Testing site is located at the corner of [address] [facility]. You will only be called if COVID results are positive and your surgeon may reschedule your elective surgery date. Patients may have clear liquids (water, carbonated beverages, clear teas, apple juice) until 3 hours prior to surgery with a maximum of 20 ounces. - No food from midnight until time of surgery - Infants may have breast milk until 4 hours before surgery, formula 6 hours prior to surgery. - Children will be allowed to drink immediately following surgery. If applicable, please bring a bottle or sippy cup to assist with drinking. Juice, water, soda, and popsicles are readily available. For infants on formula, please bring formula the day of surgery. Pacifiers are allowed. Take the following medications with a SIP of water the morning of surgery: Medications to discontinue per physician Date to take last dose Please no make-up, nail comoran, hairspray, perfume, deodorant, or body powder the day of surgery. No jewelry (including any body piercings) or valuables the day of surgery, leave them at home. Please take a shower or bath the night before, or the morning of, surgery with an antibacterial soap. Wear comfortable, loose fitting clothing. Children are encouraged to wear pajamas. - Jewelry must be removed prior to entering the operating room. Rings and piercings that are not removed may be cut off. - The hospital will not accept responsibility for valuables. - Please leave all valuables, including medications, at home the day of surgery. If you are going home after surgery, a licensed emt driver must drive you home. - NO public transportation without another adult. - We recommend that an adult stay with you for 24 hours following discharge. - We also recommend that you do not drive, make important decision, drink alcoholic beverages, or take any drugs that were not prescribed by your health care provider for at least 24 hours after your discharge time. For Pediatric surgeries, we recommend two adults accompany the child home (only one inside the building at this time). One visitor will be allowed to accompany the patient into the hospital. Patients visitor will be instructed to remain with patient at all times or leave the building. We will allow the visitor to come back to the postoperative area when patient is ready. Follow any additional instructions given to you from your surgeon. Telephone instructions given to __Patient and asked if any additional questions and then verbalized understanding. Patient advised to call surgeon office or pre surgery nurse liaison [phone] if any additional questions.
--- NOTE | 2021-10-23 12:29 | WPDANESEPPF ---
Anes - Initial Pre Proc Eval Procedure: Operation Date: 10/24/21 12:00 Proposed Procedures p Laparoscopic Quinton Fundoplication - Morteza Zavala MD Date/Time: 10/23/21 12:29 Surgeon: Morteza Zavala MD Pre Op Diagnosis: GERD, esophagitis Patient Data Age: 51 Gender: M Height: 1.78 m Weight: 120 kg Allergies Allergy/AdvReac Type Severity Reaction Status Date / Time No Known Allergies Allergy Verified 10/24/21 10:56 Home Medications Medication Instructions Recorded Confirmed Type topiramate 100 mg tablet 100 mg PO DAILY 06/24/19 10/24/21 History acetaminophen [Tylenol Arthritis 650 mg PO Q12H PRN 07/27/20 10/24/21 History Pain] alprazolam 0.5 mg tablet 0.5 mg PO TID PRN #60 tablet 05/02/21 10/24/21 Rx vilazodone 20 mg tablet 40 mg PO DAILY 07/18/21 10/24/21 History losartan 50 mg tablet 50 mg PO DAILY #90 tablet 09/10/21 10/24/21 Rx baclofen 20 mg PO QID PRN 10/18/21 10/24/21 History glucosamine rincon 2KCl-chondroit 1 cap PO HS 10/18/21 10/24/21 History [Glucosamine Sulf-Chondroitin] rizatriptan 10 mg PO PRN PRN 10/18/21 10/24/21 History amoxicillin-pot clavulanate 1 tablet PO Q12H 10 Days #20 tablet 10/22/21 10/24/21 Rx dexlansoprazole [Dexilant] 30 mg PO DAILY 10/24/21 10/24/21 History Patient hx anesthesia problems: none Family hx anesthesia problems: none Results Review: All pre-operative results and documents have been reviewed as part of the pre-operative evaluation. [facility] Past Medical History Medical History (Updated 10/23/21 @ 12:30 by Nahid Chandra MD) Abnormal CT scan Anxiety BMI 38.0-38.9,adult Complicated grieving Depression Encounter for screening colonoscopy GERD (gastroesophageal reflux disease) Hiatal hernia History of frequent headaches HTN (hypertension) Surgical History Surgical History H/O sinus surgery History of cervical spinal arthrodesis History of cholecystectomy History of lumbar spinal fusion History of shoulder surgery History of shoulder surgery History of sinus surgery Family History Family History Other Cerebrovascular accident Family history of coronary artery disease Hypertension Social History Social History Social History: Patient drinks 2-3 cups of caffeine weekly. Smoking status: Never smoker Second hand tobacco smoke exposure: No Alcohol intake: current Alcohol use details: Patient drinks alcohol rarely. 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 Gender identity (if verbalized by the patient): Male Sexual Orientation (if Verbalized by the Patient): Straight or Heterosexual Spiritual care concerns: No Anes - Eval Final PreProcedure Day of Procedure 10/23/21 12:29 Patient weight: obese Heart: regular rate and rhythm Lungs: clear to auscultation and normal air movement Airway: Mallampati scale class II Neurological: alert and oriented Last oral intake: >/= 8 hours ASA classification: III Emergent: no Anesthetic plan: proceed Anesthesia type and monitoring: general ETT Results Review: All pre-operative results and documents have been reviewed as part of the pre-operative evaluation. Informed Consent: The patient's anesthetic plan and its attendant risks and benefits were discussed with the patient/family/POA. Questions were solicited and answers provided to the satisfaction of the patient/family/POA.
[2021-10-24] VITALS (15 sets, daily range): BP systolic 130–182; BP diastolic 80–118; PULSE 77–112; RESP 12–18; TEMP 36.3–36.5; O2SAT 93–99
--- NOTE | 2021-10-24 10:47 | WPDHPUPDATE1 ---
History and Physical Update Update Date/Time: 10/24/21 10:47 History and Physical has been reviewed, including an updated exam of the patient. There are NO changes in the patient's condition. Risks, benefits, and alternatives have been discussed and questions answered. Patient agrees to proceed with procedure.
[2021-10-24] MEDS: LACTATED RINGERS 1,000 ML 30 ML IV CONT ×2 (10:49→14:50)
[2021-10-24] MEDS: ceFAZolin 2 GM/D5W 50 ML 2 GM/50 ML BAG IVPB (12:05)
[2021-10-24] MEDS: BUPIVACAINE/EPINEPHRINE 0.25% 50 ML VIAL 30 ML INFILTRATE (12:50)
--- NOTE | 2021-10-24 14:53 | W.PM.PROC2 ---
Procedure Note - Detailed Date of Procedure 10/24/21 Pre-op Diagnosis GERD, esophagitis Post-op Diagnosis Same Procedure Performed Laparoscopic Quinton fundoplication Surgeon Morteza Zavala MD Pet Handler Allie SANDOVAL Anesthesia General and Local (0.25% Marcaine with epinephrine) Indications Patient is a 51-year-old man who despite taking Dexilant twice a day was still having reflux symptoms. He has regurgitation symptoms as well. He had an EGD while on proton pump inhibitors last January which showed grade 2 esophagitis. He was seen in the office and after evaluation and discussion is now taken to surgery for laparoscopic Quinton fundoplication Findings Patient had a moderate-sized hiatal hernia. No other significant intra-abdominal findings were noted Description of Procedure Patient was taken to surgery and induced into general anesthesia. The abdomen was prepped and draped. Trocars were placed in the usual fashion. A midline hypogastric trocar was placed 1st. Local was infiltrated and then the incision was made. The varies needle was used. Saline drop technique was used to assure intraperitoneal location. After insufflation, a 10 11 applied Medical optical trocar was then placed. Under direct visualization the remaining 10 11 trocars were placed as well as the right lateral subcostal 12 mm port. Patient was placed in reverse Trendelenburg. Liver retractor was placed through the 12 mm port on the right. A lateral segment of the left lobe of the liver was retracted using this. We placed traction on the hepatogastric ligament and divided this with LigaSure. This allowed us to dissect up to the right dayanara. The patient is heavy and I was unable to see the posterior aspect of the right dayanara. I dissected into the mediastinum near the right dayanara and was able to start reducing the hernia sac. Dissection was continued staying in the areolar tissue. Eventually I reduced the hernia from the right side and also freed a lot of adhesions to the esophagus high up into the mediastinum. I tried to free some adhesions from the posterior aspect of the esophagus as well. LigaSure was used for hemostasis. We then turned our attention to the greater curvature of the stomach. The stomach was elevated anteriorly. Traction was placed on the greater omentum. Using LigaSure I divided the greater omentum from the greater curvature of the stomach starting above the prison point on the greater curvature and proceeding up to the fundus. There were some posterior adhesions to the back of the stomach as well. These were taken down with the LigaSure. We moved the scope to the left lateral port and exposed the left dayanara and hiatus from this angle. I continued mobilizing the short gastrics with the LigaSure. I then dissected up into the mediastinum mobilizing the hernia sac on the patient's left side and bringing it down into the abdomen. I continued the mediastinal dissection freeing the esophagus on the patient's left side and also some of the anterior esophagus. We then turned the stomach back to its normal position with the greater curvature in the left upper quadrant. The camera was placed in the midline. We re-exposed the right side of the mediastinum. I dissected adhesions from the posterior right dayanara and its junction with the left dayanara. I then went back up into the mediastinum and further mobilized the esophagus. After this mobilization, we had at least 6 cm of intra-abdominal esophagus. A [place] drain was placed around the distal esophagus at the esophagogastric junction. I exposed the hernia sac as it lay anterior to the upper stomach. I used the LigaSure to divide the hernia sac and then removed it from the abdomen. It was discarded. All looked good with the mobilization and reduction of the hiatal hernia. I then used the Endo Stitch and with interrupted 0 Ethibond sutures, closed the esophageal hiatus. We started at the posterior aspect of the
[2021-10-24] MEDS: fentaNYL CITRATE INJ (*CRX) 100 MCG/2 ML VIAL 25 MCG IV PUSH ×8 (15:12→16:19)
--- NOTE | 2021-10-24 15:16 | SUR.PHASEI ---
Simple mask removed at 1516.
--- NOTE | 2021-10-24 15:39 | SUR.PHASEI ---
Dr. Chandra aware of patient's BP. He said to continue to monitor at this time.
[2021-10-24] MEDS: hydrALAZINE HCL 20 MG/ML VIAL 10 MG IV PUSH (16:16)
[2021-10-24] MEDS: LABETALOL HCL INJ 100 MG/20 ML VIAL 20 MG IV PUSH (16:46)
[2021-10-24] MEDS: LORazepam INJ (*CRX) 2 MG/ML VIAL 1 MG IV PUSH (16:58)
--- NOTE | 2021-10-24 17:06 | SUR.PHASEI ---
After RN gave report to NU De La Cruz on , patient's BP continued to rise. RN called anesthesia and gave 10mg hydralazine IV push. Then patient's BP was still pretty high so RN called floor back and NU De La Cruz decided to call boiling house oiler for advice. Hospitalist came to recovery to see patient and ordered 20mg Labetalol and 1mg Ativan and wanted RN to monitor patient for a half hour before sending patient to the floor. Patient's vitals are stable and holding after additional medications given in recovery.
--- NOTE | 2021-10-24 17:50 | PC.NURSE ---
This patient, Houston Bowers, was admitted to Medical Room 248-. Patient/family oriented to hospital policies and general routines including ID bracelet, bed and alarms, visiting hours, pain management, procedures, bathroom and other care routines, personal items, smoking policy, room service/diet, and visiting hours. Information on how to activate the Rapid Response Team has been discussed. Patient/Family are encouraged to report perceived risks to care and to ask questions if they do not understand what they are told or what they should do.
[2021-10-24] MEDS: HYDROcodone/acetaminophen (*CRX) 10-325 MG TABLET 1 TAB PO (19:51)
[2021-10-24] MEDS: AMOXICILLIN/CLAVULANATE K 875-125 MG TAB 1 TABLET PO (20:40)
[2021-10-24] MEDS: ENOXAPARIN 30 MG/0.3 ML SYRINGE SUB-Q (20:40)
--- NOTE | 2021-10-24 21:28 | PM.IMCN ---
Assessment and Plan Assessment and plan (1) HTN (hypertension): Qualifiers: Hypertension type: unspecified Qualified Code(s): I10 - Essential (primary) hypertension Code(s): I10 - Essential (primary) hypertension Status: Acute Assessment and Plan: Patient was given 200 mg of fentanyl for pain and 10 mg of IV hydralazine prior to being seen. Patient's blood pressure was starting to trend down but did remain somewhat elevated. Patient was given 20 mg of IV labetalol and 4 mg of IV Ativan and patient had significant improvement in his blood pressure. Will resume patient's home will start with a dose to be given today and have p.r.n. hydralazine available (2) Hiatal hernia with GERD: Code(s): K44.9 - Diaphragmatic hernia without obstruction or gangrene; K21.9 - Gastro-esophageal reflux disease without esophagitis Status: Acute Assessment and Plan: Patient underwent laparoscopic Quinton fundoplication today all pain medications, VTE prophylaxis and postoperative care is per General surgery. (3) Anxiety: Code(s): F41.9 - Anxiety disorder, unspecified Status: Acute Assessment and Plan: Patient was given 1 mg of IV Ativan postoperatively for anxiety and he states he felt significantly improved. Patient's home Xanax has been reordered and patient can have this t.i.d. p.r.n.. Did encourage patient to ask for his Xanax when he begins to feel anxiety. Patient verbalized understanding. HPI Data of Consult Consult date: 10/24/21 Requesting Physician: Morteza Zavala MD Primary Care Provider: Satya Dockery MD Consult Narrative Narrative: Houston Bowers is a 51 year old gentleman who hospice received a consult on for hypertension. Patient states he has a long standing history of hypertension and when he has any type of pain it is much worse. Patient states that he is having significant pain after his laparoscopic Quinton fundoplication today. Patient states he takes daily losartan and has been taking his medications as ordered has had no problems with his blood pressure while at home. Patient denies any chest discomfort, shortness of breath, or palpitations at this time. Patient states his only complaint at this time is his abdominal pain. Patient states he has a known history of hypertension and was recently diagnosed with anxiety. Patient states he has been taking his Xanax as needed at home and he is feeling mildly anxious at this time. Review of Systems Review of Systems: A 12 point review of systems was completed patient all pertinent positive and negative per HPI the remainder are unremarkable. [facility] Past Medical History Medical History (Updated 10/24/21 @ 21:39 by Priscilla Hatfield APRN) Abnormal CT scan Anxiety BMI 38.0-38.9,adult Complicated grieving Depression Encounter for screening colonoscopy GERD (gastroesophageal reflux disease) Hiatal hernia Hiatal hernia with GERD History of frequent headaches HTN (hypertension) Surgical History Surgical History H/O sinus surgery History of cervical spinal arthrodesis History of cholecystectomy History of lumbar spinal fusion History of shoulder surgery History of shoulder surgery History of sinus surgery Family History Family History Other Cerebrovascular accident Family history of coronary artery disease Hypertension Social History Social History Social History: Patient drinks 2-3 cups of caffeine weekly. Smoking status: Never smoker Second hand tobacco smoke exposure: No Alcohol intake: former Drinks per week: 12 Alcohol use details: Patient drinks alcohol rarely. Substance use: never Substance use type: does not use Living arrangements: with family Additional living arrangements comments: [place]
[2021-10-24] MEDS: LOSARTAN POTASSIUM 50 MG TABLET PO (21:48)
[2021-10-25] VITALS (20 sets, daily range): BP systolic 70–199; BP diastolic 30–102; PULSE 95–122; RESP 16–26; TEMP 36.4–37; O2SAT 90–100
--- NOTE | ~2021-10-25 | US_ITS ---
EXAMINATION: US renal BI DATE: 10/26/2021 08:39 INDICATION: Acute kidney injury. TECHNIQUE: Multiple ultrasound grayscale images of the kidneys were obtained. COMPARISON: CT abdomen and pelvis 10/25/2021 FINDINGS: The right kidney measures 9.6 x 4.7 x 5.4 cm. The left kidney measures 10.6 x 5.5 x 6.3 cm. The kidne ys demonstrate normal parenchymal echogenicity. There is no hydronephrosis. The bladder is not well d istended. There is a small volume of ascites. IMPRESSION: 1. Normal kidneys. No hydronephrosis. 2. Small volume of ascites. Reviewed, dictated and finalized at location A. ITY ASSURANCE SPECIALIST
--- NOTE | ~2021-10-25 | US_ITS ---
EXAMINATION: US abdomen limited DATE: 10/26/2021 12:16 INDICATION: Abnormal liver function tests. TECHNIQUE: Multiple grayscale and Doppler ultrasound images of the abdomen were obtained. COMPARISON: CT abdomen and pelvis 10/25/2021 FINDINGS: The pancreas is obscured by bowel gas. There is diffuse hepatic steatosis. There is normal flow in main portal vein. The gallbladder is absent. The common duct is normal and measures 5 mm. The re is a small volume of perihepatic ascites. IMPRESSION: 1. Diffuse hepatic steatosis. 2. Small volume of ascites. Reviewed, dictated and finalized at location A. CEILER
--- NOTE | ~2021-10-25 | CT_ITS ---
EXAMINATION: CT abdomen pelvis wo con DATE: 10/25/2021 08:08 INDICATION: Abdominal pain, Quinton fundoplication performed yesterday TECHNIQUE: Computed tomography (CT) of the abdomen and pelvis was performed without intravenous contr ast. The dose-length product (DLP) was 1845.41 mGy-cm. Automated exposure control and iterative recon struction technique were employed. COMPARISON: None FINDINGS: There is an approximately 8.4 x 7.1 cm hematoma along the greater curvature of the stomach. A [id number] amount of hemoperitoneum is present. There is atelectasis of the lower lobes. Th ere is a small amount of pneumomediastinum and free intraperitoneal gas, consistent with Quinton fundo plication performed yesterday. Within the limitations of noncontrast examination, the liver, spleen, pancreas, and adrenal glands are normal. The kidneys are unremarkable. The gallbladder is surgically absent. No pathologically enlarged abdominal or pelvic lymph nodes are identified. There are no dilat ed loops of bowel. There are surgical changes at L5-S1. IMPRESSION: 1. 8.4 x 7.1 cm hematoma along the greater curvature of the stomach and small to moderate volume of h emoperitoneum. 2. Small amount of pneumomediastinum and free intraperitoneal gas, consistent with laparoscopic Nisse n fundoplication performed yesterday. These findings were discussed with Dr. Zavala at 0824 hours on 10/25/2021. Reviewed, dictated and finalized at location B. D CROP AND LIVESTOCK FARM WORKER IMPRESSION: 1. 8.4 x 7.1 cm hematoma along the greater curvature of the stomach and small t o moderate volume of hemoperitoneum. 2. Small amount of pneumomediastinum and free intraperitoneal gas, consistent w ith laparoscopic Quinton fundoplication performed yesterday. These findings were discussed with Dr. Zavala at 0824 hours on 10/25/2021.
[2021-10-25] MEDS: RIZATRIPTAN BENZOATE 10 MG TABLET PO (01:40)
[2021-10-25] MEDS: hydrALAZINE HCL 20 MG/ML VIAL 10 MG IV PUSH (02:56)
[2021-10-25] MEDS: HYDROcodone/acetaminophen (*CRX) 10-325 MG TABLET 1 TAB PO (02:56)
--- NOTE | 2021-10-25 04:35 | PC.NURSE ---
0415 CALLED INTO ROOM PER CAFE AIDE, PT LAYING SIDEWAYS ON BED PALE WITH TONGUE STICKING OUT AND INCONTINENT OF URINE. RAPID RESPONSE CALLED. PT PULLED UP IN BED AND IMMEDIATELY STARTING TALKING AND COLOR RETURNED TO FACE AND LIPS. STATES I WENT TO STAND UP AND FELT FAINT.
[2021-10-25 05:28] LABS: Hematocrit 39.6 % (42.0-52.0); Hemoglobin 13.1 g/dL (14.0-18.0); Mean Corpuscular HGB Conc 33.1 g/dl (32-36); Mean Corpuscular Hemoglobin 30.3 pg (26-34); Mean Corpuscular Volume 91.7 fl (80-100); Mean Platelet Volume 9.1 fl (7.4-10.4); Platelet Count Result 335 k/mm3 (150-375); Red Blood Count 4.32 M/mm3 (4.6-6.20); Red Cell Distribution Width 12.4 % (11.5-14.5); White Blood Count 9.5 K/mm3 (4.5-10.0)
[2021-10-25 05:36] LABS: Anion Gap 8 mmol/L (8-16); Blood Urea Nitrogen 17 mg/dL (9-20); Calcium 8.2 mg/dL (8.4-10.2); Carbon Dioxide 22 mmol/L (22-30); Chloride 104 mmol/L (98-107); Estimated CRCL calculation 92 ml/min; Estimated Glomerular Filt Rate > 60; Glucose 141 mg/dL (65-110); Potassium 3.9 mmol/L (3.4-5.0); Sodium 134 mmol/L (137-145)
[2021-10-25] MEDS: SODIUM CHLORIDE 0.9% IV 1,000 ML 999 ML IV CONT ×2 (05:55→14:30)
--- NOTE | 2021-10-25 05:58 | PC.NURSE ---
0535 BP 74/52CALL OUT FOR DR. EDWARDS AND DR NAVA. RAPID RESPONSE CALLED.
--- NOTE | 2021-10-25 05:59 | PC.NURSE ---
Debbie informed of patient move to ICU
--- NOTE | 2021-10-25 06:02 | PC.NURSE ---
PT TRANSFERRED PER BED TO ICU 7
[2021-10-25 07:25] LABS: Lactic Acid Reflex 2.3 mmol/L (0.7-2.1)
[2021-10-25 07:44] LABS: Albumin Level 3.5 g/dL (3.5-5.1); Alkaline Phosphatase 126 U/L (38-126); Anion Gap 8 mmol/L (8-16); Aspartate Amino Transferase 575 U/L (17-59); Bilirubin,Total 0.9 mg/dL (0.2-1.3); Blood Urea Nitrogen 18 mg/dL (9-20); Calcium 7.9 mg/dL (8.4-10.2); Carbon Dioxide 22 mmol/L (22-30); Chloride 104 mmol/L (98-107); Estimated CRCL calculation 85 ml/min; Estimated Glomerular Filt Rate > 60; Glucose 131 mg/dL (65-110); Sodium 134 mmol/L (137-145)
--- NOTE | 2021-10-25 07:46 | P.RRN_ITS ---
Critical Care Event Note Summary Code activated: No Narrative: Patient having uncontrolled pain medications with Natalbany and morphine. He was still having pain to the patient received a dose of Maxalt. Shortly after he received Maxalt his blood pressure spiked to 199/100. He subsequently received a dose of p.r.n. hydralazine. 2 hours later a rapid response had been called with the patient tried to get up and go to the bathroom. He had an episode of unresponsiveness and was incontinent of a large amount of urine. His blood pressures at that time had dropped to 98/72 lead improved in the patient's mentation normalized with improvement in his blood pressure. Then on repeat evaluation about an hour the patient again had hypotension. With blood pressures in the 70s. While the patient was receiving a bolus of fluids the patient lost IV access. Nursing staff was eventually able to replace the patient's IV access. The and the patient was tachycardic with heart rate in the 1 teens to 120's. He was transferred to the ICU. He was placed in vascular position at which time patient's blood pressures improved to 90 8/64. His heart rate improved to the low 100s. A cheetah score was performed and demonstrated patient was fluid responsive. The On exam the patient was pale, diaphoretic and ill-appearing. His mentation was fine. He did appear anxious. And is 2nd cap refill and cool extremities. His lungs were clear to auscultation bilaterally with no increased work of breathing he had sinus tachycardia. Assessment and plan: Hypotension likely due to intravascular volume depletion. Patient receiving IV fluid bolus in condition is stabilized. Stat labs including CBC, CMP and lactic acid have been ordered. Patient care as hand off to first aid instructor and daytime provider at the end of my shift. 30 minute spent in critical care activities. This case had a high probability of a clinically significant, sudden, or life threatening deterioration of this patient's condition which required my full and direct attention, intervention and personal management. Critical care time: 30 - 74 mins
[2021-10-25] MEDS: MORPHINE SULFATE (*CRX) 4 MG/ML INJ IV PUSH (07:52)
[2021-10-25 08:06] LABS: Alanine Aminotransferase 803 U/L (4-50)
[2021-10-25] MEDS: SODIUM CHLORIDE 0.9% IV 500 ML IV CONT (08:16)
--- NOTE | 2021-10-25 08:28 | PM.IMPN ---
Progress Note: A&P Assessment and Plan (1) Hypotension: Code(s): I95.9 - Hypotension, unspecified Status: Acute Assessment and Plan: Patient with precipitous drop in his blood pressure overnight. Unclear if this is related to the acute blood loss or more likely related to narcotics and antihypertensive medications. Blood pressure better controlled. He has not required pressor therapy. Continue to monitor in ICU. Appreciate jewelry salesperson input. (2) Intra-abdominal hematoma: Status: Acute Assessment and Plan: Patient with severe pain postoperatively. CT scan this morning shows 8.4 x 7.1 cm hematoma along the greater curvature of the stomach and small to moderate volume of hemoperitoneum. Hemoglobin was 14.6 preoperatively about 1 week ago. Hemoglobin this morning is 13.1. Will check serial H&H. Stop lovenox. Continue monitor closely. (3) Hiatal hernia with GERD: Code(s): K44.9 - Diaphragmatic hernia without obstruction or gangrene; K21.9 - Gastro-esophageal reflux disease without esophagitis Status: Acute Assessment and Plan: Patient with hiatal hernia with GERD and has failed outpatient conservative management. Patient underwent laparoscopic Quinton fundoplication on 10/24/2021 is now postop day 1. Continue routine post-op care per General Surgery. Continue Protonix. (4) HTN (hypertension): Qualifiers: Hypertension type: unspecified Qualified Code(s): I10 - Essential (primary) hypertension Code(s): I10 - Essential (primary) hypertension Status: Acute Assessment and Plan: Patient was given 200 mg of fentanyl for pain and 10 mg of IV hydralazine prior to being seen yesterday. Patient was given 20 mg of IV labetalol and 4 mg of IV Ativan as well. Overnight, BP dropped as mentioned above. Currently off all anti-HTN medications. Hydralazine available as needed (5) Anxiety: Code(s): F41.9 - Anxiety disorder, unspecified Status: Acute Assessment and Plan: Patient was given 1 mg of IV Ativan postoperatively for anxiety and he states he felt significantly improved. Patient's home Xanax has been reordered and patient can have this t.i.d. p.r.n.. Topamax and vilazodone have been resumed. (6) DVT prophylaxis: Code(s): Z29.9 - Encounter for prophylactic measures, unspecified Status: Acute Assessment and Plan: Stop Lovenox. Add SCDs Subjective Date/time seen: 10/25/21 08:28 Interval history: 51yo male with HTN, anxiety and GERD here for elective laparoscopic Quinton fundoplication. Patient had considerable pain after the procedure with elevated BP. He was treated with with narcotics and anti-HTN medications. Overnight, his BP dropped down to 70/30. He was moved to the ICU. He is still having considerable pain. No flatus or BM. Voiding okay. No CP. Increase abdominal pain with deep breathing Exam Narrative: AF 97.6 138/72 106 16 100% 2L Gen - NARD lying flat in bed Chest - clear to quiet respirations. nml RR CV - RRR S1/S2. Tele showing no significant dysrhythmias. Abd - firm, no active BS. diffusely tender worse in the upper abdomen. Incision sites well approximated and clean/dry Ext - No pedal edema Psych - Nml mood and affect Skin - Warm and dry Objective Data Vital Signs Vital Signs: Vital Signs - 24 hr 10/24/21 10:30 10/24/21 14:50 10/24/21 15:05 Temperature 97.7 F 97.3 F L Pulse Rate 77 92 97 Respiratory Rate 18 18 18 Blood Pressure 149/88 H 171/84 H 173/88 H Pulse Oximetry 98 97 99 10/24/21 15:20 10/24/21 15:35 10/24/21 15:50 Temperature Pulse Rate 95 85 88 Respiratory Rate 16 14 14 Blood Pressure 176/97 H 168/103 H 177/90 H Pulse Oximetry 93 96 96 10/24/21 16:05 10/24/21 16:20 10/24/21 16:30 Temperature Pulse Rate 106 H 109 H 111 H Respiratory Rate 16 16 16 Blood Pressure 182/116 H 178/118 H 156/88 H Pulse Oximetry 96 96 96 10/24/21 16:35 03
--- NOTE | 2021-10-25 08:51 | WPDCNINT ---
Assessment and Plan Assessment and plan (1) Hypotension: Code(s): I95.9 - Hypotension, unspecified Status: Acute Assessment and Plan: Hypotension likely related to possible acute blood slow secondary to the hematoma on the greater curve which has seen on CT scan of the abdomen. Could also be related to pain medications and antihypertensive medications -patient received 1 L of IV fluid bolus in the ICU, will give additional 500 mL IV flui - continue Augmentin -10/25 CT abdomen and pelvis: 8.4 x 7.1 cm hematoma along the greater curvature of the stomach and small to moderate volume of hemoperitoneum. Small amount of pneumomediastinum and free intraperitoneal gas, consistent with laparoscopic Quinton fundoplication performed yesterday. -surgery was informed by radiologist regarding the hematoma (2) Intra-abdominal hematoma: Status: Acute Assessment and Plan: Will discontinue Lovenox, -will monitor H&H Q 6 hours -the patient is improved -type and screen -pain control (3) Hiatal hernia with GERD: Code(s): K44.9 - Diaphragmatic hernia without obstruction or gangrene; K21.9 - Gastro-esophageal reflux disease without esophagitis Status: Acute Assessment and Plan: Status post laparoscopic Quinton fundoplication 10/24/2021 -surgery following the patient -continue pain control -NPO except meds (4) Anxiety: Code(s): F41.9 - Anxiety disorder, unspecified Status: Acute Assessment and Plan: P.r.n. Xanax (5) Depression: Code(s): F32.9 - Major depressive disorder, single episode, unspecified Status: Acute Assessment and Plan: topamax and viibryd (6) DVT prophylaxis: Code(s): Z29.9 - Encounter for prophylactic measures, unspecified Status: Acute Assessment and Plan: SCDs Additional Plan Discussed with patient updated with his condition and plan of care. I also updated with the CT abdomen and pelvis report, awaiting surgery team to discuss further Code status: Full code Critical care time spent: 43 minute This dictation may have been done utilizing a voice recognition system. Attempts have been made to correct errors. However, there may be uncorrected grammatical, spelling, and recognition errors present. Due to a high probability of clinically significant, life threatening deterioration, the patient required my highest level of preparedness to intervene emergently and I personally spent this critical care time directly and personally managing the patient. This critical care time included obtaining a history; examining the patient; pulse oximetry; ordering and review of studies; arranging urgent treatment with development of a management plan; evaluation of patient's response to treatment; frequent reassessment; and discussions with other providers. It was exclusive of separately billable procedures and treating other patients and teaching time. Please see Assessment and Plan section and the rest of the note for further information on patient assessment and treatment Analytic Programmer Consult Note Consult date: 10/25/21 Time Seen: 07:04 Reason for consult: Hypotension status post laparoscopic Quinton fundoplication on 10/24/2021 HPI: Houston Bowers is a 51 year old male past medical history anxiety, depression, gastroesophageal reflux disease, hiatal hernia, history of frequent headaches, essential hypertension with history of cervical spine surgery, lumbar spinal fusion, shoulder surgery and has a history of longstanding gastroesophageal reflux disease in came in for elective laparoscopic Quinton fundoplication procedure was uneventful, overnight postprocedure patient developed hypotension and was treated with narcotics and antihypertensive medications. After which he dropped his systolic blood pressures in the 70s and was transferred to the ICU he was given a L of IV fluid bolus. He complains of left upper quadrant pain, denies any nausea, vomiting at
[2021-10-25 10:11] LABS: Reflex Lactic Acid Yes or No Add Lactic
[2021-10-25] MEDS: LIDOCAINE HCL 1% LOCAL INJ 2 ML AMPUL 5 ML INFILTRATE (10:30)
[2021-10-25 11:23] LABS: Hematocrit 34.7 % (42.0-52.0); Hemoglobin 11.5 g/dL (14.0-18.0)
--- NOTE | 2021-10-25 11:33 | PM.PNGS ---
Progress Note: A&P Assessment and Plan (1) Hypotension: Code(s): I95.9 - Hypotension, unspecified Status: Acute Assessment and Plan: Appreciate care rendered by hospitalist and tank washer. I discussed the patient with tank washer, Dr. Gilmore, this morning. I have also reviewed the CT scan of the abdomen and pelvis with the radiologist. Blood pressure is more normal now. Despite the hematoma, patient is not anemic and I do not feel his episode of hypotension was due to hemorrhagic shock. As long as blood pressure is in normal range, would resume clear liquids and have patient up sitting in chair. Continue ICU monitoring. He is also on q.6 our H&H levels to monitor for anemia. (2) Status post Quinton fundoplication: Code(s): Z98.890 - Other specified postprocedural states Status: Acute Assessment and Plan: No recurrent hiatal hernia, Quinton seems to be intact. No pneumothorax. Patient having a lot of postsurgical pain and I believe this is likely due to his chronic narcotic use for back pain. Will go ahead and start him on a morphine sulfate PLUSH WEAVER pump. Hopefully this will make him more comfortable. It appears his repair is intact even though there is a hematoma behind the stomach. Usually the 1st day postoperatively is the most painful so hopefully this will improve tomorrow as well. Continue to monitor closely. (3) Intra-abdominal hematoma: Status: Acute Assessment and Plan: Hematoma is behind the stomach and does not appear to be associated with the spleen which would be much more worrisome for ongoing bleeding. As above, I do not think the patient's current condition is due to hemorrhage. Do not plan to reoperate to evacuate hematoma. Will continue to monitor closely and if there are signs of ongoing bleeding, will definitely address but for now I do not anticipate any intervention for bleeding. (4) HTN (hypertension): Qualifiers: Hypertension type: unspecified Qualified Code(s): I10 - Essential (primary) hypertension Code(s): I10 - Essential (primary) hypertension Status: Acute Assessment and Plan: Extreme hypertension after surgery and after multiple medications to treat, as well as a lot of narcotics for pain control, patient became hypotensive as noted. Rapid response called. Hopefully blood pressure will be more normalized and we will get pain more under control with PLUSH WEAVER. Continue to monitor in ICU. Subjective Subjective Date/Time Seen: 10/25/21 11:33 Post Op day: 1 Patient reports: still having pain and afebrile Interval history: Events of last night noted. Patient currently in the ICU. Blood pressure is more normal 120 systolic. He is complaining of pain predominantly at the right subcostal trocar site. He also notices some discomfort with taking a breath. He has been receiving 4 mg of morphine q.2 hours p.r.n. for pain. He does take narcotics chronically for back pain. Review of Systems Review of Systems: All systems reviewed & are unremarkable except as noted in HPI and below (HPI and those items noted below) Constitutional: Constitutional: Reports body ache(s), Denies chills, Denies fever(s), Denies headache(s), Denies increased appetite, Denies night sweats and Reports poor appetite Respiratory: Respiratory: Reports as per HPI, Reports pain on inspiration and Reports pain with cough Gastrointestinal: Gastrointestinal: Reports as per HPI, Reports abdominal pain, Denies heartburn, Denies diarrhea and Denies nausea Exam Const: General: comfortable and no acute distress; No confusion Orientation/consciousness: patient oriented x3 and No confusion Resp: Effort & Inspection: normal respiratory effort, no grunting, not labored and not tachypneic Auscultation: clear to auscultation bilaterally Cardio: Rate: tachycardic Rhythm: regular rhythm Heart sounds: S1 normal heart sound present, S2 normal heart sound present and no murmu
[2021-10-25 11:35] LABS: Lactic Acid 0.9 mmol/L (0.7-2.1)
--- NOTE | 2021-10-25 12:10 | PHAR ---
TWO HOME MEDS SENT TO PHARMACY: HALOBETASOL 0.05% OINTMENT AND KETAMINE, GABAPENTIN, CYCLOBENZAPRINE, DICLOFENAC, PENTOXIFYLLINE, IBUPROFEN, LIDOCAINE CREAM BOTH FROM A COMPOUNDING PHARMACY
[2021-10-25] MEDS: MORPHINE SULFATE PCA (*CRX) 30 MG/30 ML SYR IV CONT ×2 (12:24→20:29)
[2021-10-25] MEDS: SODIUM CHLORIDE 0.9% IV 250 ML 999 ML (16:02)
[2021-10-25] MEDS: CENTRAL LINE FLUSH 10 ML IV PUSH ×2 (16:04→20:42)
[2021-10-25] MEDS: ONDANSETRON INJ 4 MG/2 ML VIAL IV PUSH (18:13)
--- NOTE | 2021-10-25 19:43 | PHAR ---
HOME MED: VIIBRYD 40 MG TABLETS, TAKE 1 TABLET (40 MG) DAILY. VERIFIED BY PHARMACY.
[2021-10-25 20:25] LABS: Hematocrit 31.1 % (42.0-52.0); Hemoglobin 10.2 g/dL (14.0-18.0)
[2021-10-26] VITALS (10 sets, daily range): BP systolic 99–146; BP diastolic 54–94; PULSE 101–126; RESP 14–22; TEMP 36.7–36.8; O2SAT 93–99
[2021-10-26] MEDS: diphenhydrAMINE HCl CAP 25 MG CAPSULE PO (00:03)
[2021-10-26] MEDS: PHENOL/SOD PHENO SPRAY CHERRY (*BKC) 1 SPRAY MUCOUS MEM (00:03)
[2021-10-26 04:20] LABS: Basophils Percent Auto 0.2 % (0.2-1.2); Eosinophils Absolute Auto 0.1 K/mm3 (0-0.3); Hematocrit 28.5 % (42.0-52.0); Hematocrit 29.2 % (42.0-52.0); Hemoglobin 9.3 g/dL (14.0-18.0); Hemoglobin 9.5 g/dL (14.0-18.0); Immature Granulocyte Absolute 0.09 K/mm3 (0.00-0.031); Lymphocytes Absolute Auto 1.86 K/mm3 (0.9-3.2); Lymphocytes Percent Auto 21.1 % (18.3-44.2); Mean Corpuscular HGB Conc 32.5 g/dl (32-36); Mean Corpuscular Hemoglobin 30.4 pg (26-34); Mean Corpuscular Volume 93.3 fl (80-100); Mean Platelet Volume 9.2 fl (7.4-10.4); Monocytes Absolute Auto 0.8 K/mm3 (0.1-0.6); Monocytes Percent Auto 9.2 % (2.6-8.5); Neutrophils Absolute Auto 5.9 K/mm3 (1.3-6.7); Neutrophils Percent Auto 67.5 % (45.5-73.1); Platelet Count Result 237 k/mm3 (150-375); Red Blood Count 3.13 M/mm3 (4.6-6.20); Red Cell Distribution Width 12.9 % (11.5-14.5); White Blood Count 8.8 K/mm3 (4.5-10.0)
[2021-10-26 04:33] LABS: Albumin Level 3.3 g/dL (3.5-5.1); Alkaline Phosphatase 131 U/L (38-126); Anion Gap 6 mmol/L (8-16); Aspartate Amino Transferase 679 U/L (17-59); Bilirubin,Total 0.8 mg/dL (0.2-1.3); Blood Urea Nitrogen 32 mg/dL (9-20); Calcium 7.4 mg/dL (8.4-10.2); Carbon Dioxide 22 mmol/L (22-30); Chloride 103 mmol/L (98-107); Estimated CRCL calculation 42 ml/min; Estimated Glomerular Filt Rate 27; Glucose 120 mg/dL (65-110); Potassium 3.9 mmol/L (3.4-5.0); Sodium 131 mmol/L (137-145)
[2021-10-26 04:36] LABS: INR 1.1; Prothrombin Time 13.8 Seconds (11.1-14.7)
[2021-10-26 04:37] LABS: Partial Thromboplastin Time 27.3 SECONDS (22.3-36.8)
[2021-10-26 04:41] LABS: Alanine Aminotransferase 1033 U/L (4-50)
[2021-10-26 05:48] LABS: Thyroid Stimulating Hormone Reflex 0.961 uIU/mL (0.465-4.68)
--- NOTE | 2021-10-26 09:26 | WPDINTPN ---
Progress Note: A&P Assessment and Plan (1) Hypotension: Code(s): I95.9 - Hypotension, unspecified Status: Acute Assessment and Plan: RESOLVED with IV fluids, patient also tolerating p.o. diet clear liquid diet Hypotension likely related to possible acute blood slow secondary to the hematoma on the greater curve which has seen on CT scan of the abdomen. Could also be related to pain medications and antihypertensive medications - continue Augmentin -10/25 CT abdomen and pelvis: 8.4 x 7.1 cm hematoma along the greater curvature of the stomach and small to moderate volume of hemoperitoneum. Small amount of pneumomediastinum and free intraperitoneal gas, consistent with laparoscopic Quinton fundoplication performed yesterday. 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 Xanax (5) Depression: Code(s): F32.9 - Major depressive disorder, single episode, unspecified Status: Acute Assessment and Plan: topamax and viibryd (6) DVT prophylaxis: Code(s): Z29.9 - Encounter for prophylactic measures, unspecified Status: Acute Assessment and Plan: SCDs (7) Acute kidney injury: Code(s): N17.9 - Acute kidney failure, unspecified Status: Acute Assessment and Plan: Patient with worsening renal function and decreased urine output -will obtain renal ultrasound -will send urine lytes, creatinine kinase and urine eosinophils (8) Elevated LFTs: Code(s): R79.89 - Other specified abnormal findings of blood chemistry Status: Acute Assessment and Plan: Likely related to shock liver due to hypotension episodes 06/29/2022, could also be related to the laparoscopic procedure -will obtain hepatitis panel and right upper quadrant ultrasound -will discuss the case surgery -continue to monitor Additional Plan Discussed with patient updated with his condition and plan of care. I also updated with the CT abdomen and pelvis report, awaiting surgery team to discuss further Code status: Full code Critical care time spent: 34 minutes This dictation may have been done utilizing a voice recognition system. Attempts have been made to correct errors. However, there may be uncorrected grammatical, spelling, and recognition errors present. Due to a high probability of clinically significant, life threatening deterioration, the patient required my highest level of preparedness to intervene emergently and I personally spent this critical care time directly and personally managing the patient. This critical care time included obtaining a history; examining the patient; pulse oximetry; ordering and review of studies; arranging urgent treatment with development of a management plan; evaluation of patient's response to treatment; frequent reassessment; and discussions with other providers. It was exclusive of separately billable procedures and treating other patients and teaching time. Please see Assessment and Plan section and the rest of the note for further information on patient assessment and treatment Subjective Date/time seen: 10/26/21 09:26 Interval history: 51yo male with HTN, anxiety and GERD here for elective laparoscopic Quinton fundoplication.
[2021-10-26] MEDS: PANTOPRAZOLE 40 MG TABLET PO (09:48)
[2021-10-26] MEDS: TOPIRAMATE 100 MG TABLET PO (09:48)
[2021-10-26] MEDS: AMOXICILLIN/CLAVULANATE K 875-125 MG TAB 1 TABLET PO ×2 (09:48→20:20)
[2021-10-26 09:53] LABS: Creatine Kinase 361 U/L (55-170)
[2021-10-26] MEDS: ONDANSETRON INJ 4 MG/2 ML VIAL IV PUSH (09:53)
[2021-10-26 10:25] LABS: Hepatitis B Surface Antigen Negative (Negative)
[2021-10-26 10:30] LABS: HAV RESULT Negative (Negative); Hepatitis B Core IgM Result Negative (Negative)
[2021-10-26 10:42] LABS: Hepatitis C Virus Antibody Negative (Negative)
[2021-10-26] MEDS: MORPHINE SULFATE PCA (*CRX) 30 MG/30 ML SYR IV CONT (11:01)
--- NOTE | 2021-10-26 12:59 | PM.PNGS ---
Progress Note: A&P Assessment and Plan (1) Hypotension: Qualifiers: Hypotension type: hypotension due to hypovolemia Qualified Code(s): I95.89 - Other hypotension; E86.1 - Hypovolemia Code(s): I95.9 - Hypotension, unspecified Status: Resolved Assessment and Plan: significant hypotension postoperatively. Has probably resulted in shock liver and elevated LFTs as well as acute kidney injury. No evidence of persistent hypotension but still tachycardic. H&H has drifted down but with normal blood pressure, will hold off on transfusion. Suspect anemia due to fluid administration with acute kidney injury. Will transfer to surgical floor. (2) Postoperative anemia: Code(s): D64.9 - Anemia, unspecified Status: Acute Assessment and Plan: H&H has drifted down to 9.5 and 29.2. With hematoma noted on CT scan, suspect there was some postoperative bleeding but largely feel this is due to dilutional effect with fluid resuscitation and acute kidney injury. Continue to monitor closely. (3) Status post Quinton fundoplication: Code(s): Z98.890 - Other specified postprocedural states Status: Acute Assessment and Plan: Patient tolerating clear liquids well and taking pills without difficulty. No symptoms of heartburn. Fundoplication and hernia repair intact on CT scan from yesterday. (4) Acute kidney injury: Code(s): N17.9 - Acute kidney failure, unspecified Status: Acute Assessment and Plan: Renal ultrasound shows no hydronephrosis. Patient is making good amount of urine. Continue to monitor. If creatinine continues to rise, we will get nephrology consultation. Hospitalist following as well. (5) Elevated LFTs: Code(s): R79.89 - Other specified abnormal findings of blood chemistry Status: Acute Assessment and Plan: Probably from shock liver and hypotension as noted above. (6) BMI 38.0-38.9,adult: Code(s): Z68.38 - Body mass index [BMI] 38.0-38.9, adult Status: Chronic Subjective Subjective Date/Time Seen: 10/26/21 12:59 Post Op day: 2 Patient reports: feels better, pain is less, tolerating liquids well, no flatus, no bowel movement and afebrile Review of Systems Review of Systems: All systems reviewed & are unremarkable except as noted in HPI and below Constitutional: Constitutional: Reports as per HPI, Denies chills, Reports fatigue, Denies fever(s), Denies headache(s), Denies poor appetite and Reports weakness Cardiovascular: Cardiovascular: Denies chest pain and Denies dyspnea Respiratory: Respiratory: Denies cough and Denies dyspnea Gastrointestinal: Gastrointestinal: Reports as per HPI, Denies GI cramping, Denies heartburn, Denies nausea and Denies vomiting Integumentary/Breasts: Skin/Breast: Denies lesions and Denies rash Exam Const: General: comfortable, no acute distress, alert and awake Nutritional Appearance: obese Orientation/consciousness: patient oriented x3 Chest: Chest palpation & inspection: normal inspection of the chest Resp: Effort & Inspection: normal respiratory effort, able to speak in complete sentences, no cough and symmetric chest movement Auscultation: clear to auscultation bilaterally, no rales and no rhonchi Cardio: Rate: tachycardic Rhythm: regular rhythm Heart sounds: S1 normal heart sound present and S2 normal heart sound present GI: Inspection: Abdominal wall edema ( diffusely edematous), incision ( incisions dry and healing well) and obesity GI Palp: Yes Soft to palpation, Yes Tenderness to palpation present (GI) ( appropriate incisional tenderness), No Hernia present and No Palpable mass present Auscultation: Hypoactive bowel sounds present Extrem: General: edema ( diffusely edematous) Objective Data Vital Signs Vital Signs: Vital Signs - 24 hr 10/25/21 14:00 10/25/21 16:00 10/25/21 18:00 Temperature Pulse Rate 111 H 107 H 112 H Respiratory Rate 22 H 20
[2021-10-26 13:22] LABS: Eosinophil Urine None Seen % (None Seen)
[2021-10-26] MEDS: SODIUM CHLORIDE 0.9% IV 1,000 ML 80 ML IV CONT ×2 (13:53→17:07)
[2021-10-26] MEDS: BUMETANIDE INJ 1 MG/4 ML VIAL 2 MG IV PUSH (14:01)
[2021-10-26] MEDS: diphenhydrAMINE HCl INJ 50 MG/ML VIAL IV PUSH (14:01)
[2021-10-26] MEDS: CENTRAL LINE FLUSH 10 ML IV PUSH ×2 (14:03→20:21)
[2021-10-26 14:08] LABS: Creatinine Urine 145.3 mg/dL
[2021-10-26 14:12] LABS: Potassium Urine Random 18.1 meq/L
[2021-10-26 14:17] LABS: Sodium Urine Random < 5 meq/L
--- NOTE | 2021-10-26 17:04 | PC.NURSE ---
This patient, Houston Bowers, was received from [[id number] ] on 10/26/21 at 1630 to room 320-2. Patient/family oriented to unit policies and routines. pt orientated to use of call light, call light in reach, resting in recliner chair.
[2021-10-27] VITALS (9 sets, daily range): BP systolic 126–148; BP diastolic 56–87; PULSE 105–117; RESP 16–20; TEMP 34.9–37.1; O2SAT 91–100
[2021-10-27] MEDS: ACETAMINOPHEN 500 MG TABLET PO
--- NOTE | 2021-10-27 01:56 | PC.NURSE ---
Daylight Savings Time For Daylight Savings Time Ending in the Fall - Clocks are moved back. For Daylight Savings Time Beginning in the Spring - Clocks are moved ahead. For [facility], the time of change occurs at 0200 hrs. Time is taken from the industrial refrigeration mechanic. This entry on the patient's chart recognizes the change in time reflected during documentation. Example: 2 entries for vital signs may be charted for 0200 hrs.
[2021-10-27 06:06] LABS: Hematocrit 25.9 % (42.0-52.0); Hemoglobin 8.8 g/dL (14.0-18.0); Mean Corpuscular Hemoglobin 30.4 pg (26-34); Mean Corpuscular Volume 89.6 fl (80-100); Platelet Count Result 236 k/mm3 (150-375); Red Blood Count 2.89 M/mm3 (4.6-6.20); Red Cell Distribution Width 12.6 % (11.5-14.5); White Blood Count 7.6 K/mm3 (4.5-10.0)
[2021-10-27] MEDS: SODIUM CHLORIDE 0.9% IV 1,000 ML 80 ML IV CONT (06:06)
[2021-10-27] MEDS: CENTRAL LINE FLUSH 10 ML IV PUSH ×3 (06:07→21:03)
[2021-10-27 06:18] LABS: Anion Gap 3 mmol/L (8-16); Blood Urea Nitrogen 18 mg/dL (9-20); Calcium 8.1 mg/dL (8.4-10.2); Carbon Dioxide 30 mmol/L (22-30); Chloride 103 mmol/L (98-107); Estimated CRCL calculation 103 ml/min; Estimated Glomerular Filt Rate > 60; Glucose 111 mg/dL (65-110); Sodium 136 mmol/L (137-145)
[2021-10-27] MEDS: AMOXICILLIN/CLAVULANATE K 875-125 MG TAB 1 TABLET PO ×2 (08:24→21:03)
[2021-10-27] MEDS: ENOXAPARIN 40 MG/0.4 ML SYRINGE SUB-Q (08:24)
[2021-10-27] MEDS: PANTOPRAZOLE 40 MG TABLET PO (08:25)
[2021-10-27] MEDS: TOPIRAMATE 100 MG TABLET PO (08:25)
[2021-10-27] MEDS: LOSARTAN POTASSIUM 50 MG TABLET PO (08:25)
[2021-10-27] MEDS: MORPHINE SULFATE PCA (*CRX) 30 MG/30 ML SYR IV CONT (12:36)
--- NOTE | 2021-10-27 13:02 | PM.PNGS ---
Progress Note: A&P Assessment and Plan (1) Acute kidney injury: Code(s): N17.9 - Acute kidney failure, unspecified Status: Acute Assessment and Plan: Good urine output. Creatinine down to normal today. Leave Hensley in other day and diurese. Still very edematous. (2) Status post Quinton fundoplication: Code(s): Z98.890 - Other specified postprocedural states Status: Acute Assessment and Plan: Tolerating full liquids well. No heartburn. No dysphagia. Will advance to low fiber diet. Having pain at right subcostal trocar site which does include a fascial closure to prevent postop hernia. I explained this to him. 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 (3) Hypotension: Qualifiers: Hypotension type: hypotension due to hypovolemia Qualified Code(s): I95.89 - Other hypotension; E86.1 - Hypovolemia Code(s): I95.9 - Hypotension, unspecified Status: Resolved Assessment and Plan: No hypotension last 36 hours. (4) Elevated LFTs: Code(s): R79.89 - Other specified abnormal findings of blood chemistry Status: Acute Assessment and Plan: Recheck tomorrow but expect these will be improved as well. (5) Postoperative anemia: Code(s): D64.9 - Anemia, unspecified Status: Acute Assessment and Plan: Remains low but doubt he is actively bleeding. No plans for transfusion. Continue to diurese. Continue to monitor. Subjective Subjective Date/Time Seen: 10/27/21 13:02 Post Op day: 3 Patient reports: feels better, still having pain (Right subcostal trocar site is continued source of pain for him.), tolerating liquids well and afebrile Exam Const: General: cooperative, comfortable, no acute distress, alert and awake Nutritional Appearance: obese Orientation/consciousness: patient oriented x3 Resp: Effort & Inspection: normal respiratory effort Auscultation: clear to auscultation bilaterally, no crackles and no rales Cardio: Rate: tachycardic Rhythm: regular rhythm GI: Inspection: Abdominal wall edema (Less edematous than yesterday.), incision (Incisions dry and healing well) and obesity GI Palp: Yes Soft to palpation and Yes Tenderness to palpation present (GI) (Right subcostal trocar site mostly) Auscultation: normal bowel sounds Extrem: General: edema (Less edematous than yesterday) Objective Data Vital Signs Vital Signs: Vital Signs - 24 hr 10/26/21 16:00 10/26/21 20:00 10/27/21 00:00 Temperature 36.8 C 36.6 C Pulse Rate 126 H 114 H 117 H Respiratory Rate 20 18 20 Blood Pressure 134/83 146/83 H 148/79 H Pulse Oximetry 95 94 91 10/27/21 01:07 10/27/21 04:00 10/27/21 08:00 Temperature 36.8 C 36.0 C L 34.9 C L Pulse Rate 109 H 107 H Respiratory Rate 18 18 Blood Pressure 138/56 L 138/87 Pulse Oximetry 95 100 10/27/21 12:00 10/27/21 12:36 Temperature 35.9 C L Pulse Rate 105 H Respiratory Rate 18 18 Blood Pressure 133/78 Pulse Oximetry 98 98 Intake/Output Intake/Output: Intake & Output 10/24/21 10/25/21 10/26/21 10/28/21 23:59 23:59 23:59 00:59 Intake Total 500 5130 3060 2276 Output Total 550 1675 2000 Balance 500 4580 1385 276 Meds/Results Medications: Active Medications Generic Name Dose Route Start Last Admin Trade Name Maldonadoq PRN Reason Stop Dose Admin Acetaminophen 500 mg 10/24/21 17:18 10/27/21 00:00 Acetaminophen 500 Mg Tablet PO 500 mg Q6H PRN Administration Mild Pain (1-3) or Fever Alprazolam 0.5 mg 10/24/21 17:18 Alprazolam (*Crx) 0.5 Mg Tablet PO TID PRN anxiety Amoxicillin/Clavulanate Potassium 1 tablet 10/24/21 21:00 10/27/21 08:24 Amoxicillin/Clavulanate K 875-125 Mg Tab PO 1 tablet Q12HR CARMELO Administration Baclofen 20 mg 10/24/21 17:18 Baclofen 10 Mg Tablet PO QID PRN NEURALGIA Pain Bumetanide 2 mg 10/27/21 12:59 Bumetanide Inj 1 Mg/4 Ml Vial IV PUSH 10/27/21 13:00 ONCE ONE Bumetan
[2021-10-27] MEDS: BUMETANIDE INJ 2.5 MG/10 ML VIAL 2 MG IV PUSH (13:31)
[2021-10-27] MEDS: POTASSIUM CHLORIDE 20 MEQ TABLET PO (13:31)
[2021-10-27] MEDS: BISACODYL 10 MG SUPPOSITORY RECTAL (17:03)
[2021-10-27] MEDS: POTASSIUM CHLORIDE 20 MEQ TABLET.ER PO (17:03)
[2021-10-28 05:34] LABS: Hematocrit 24.1 % (42.0-52.0); Mean Corpuscular HGB Conc 33.2 g/dl (32-36); Mean Corpuscular Hemoglobin 30.1 pg (26-34); Mean Corpuscular Volume 90.6 fl (80-100); Platelet Count Result 253 k/mm3 (150-375); Red Blood Count 2.66 M/mm3 (4.6-6.20); Red Cell Distribution Width 12.9 % (11.5-14.5); White Blood Count 7.3 K/mm3 (4.5-10.0)
[2021-10-28 05:49] LABS: Alanine Aminotransferase 603 U/L (4-50); Albumin Level 3.2 g/dL (3.5-5.1); Alkaline Phosphatase 134 U/L (38-126); Anion Gap 5 mmol/L (8-16); Aspartate Amino Transferase 155 U/L (17-59); Bilirubin,Total 0.6 mg/dL (0.2-1.3); Blood Urea Nitrogen 12 mg/dL (9-20); Calcium 7.7 mg/dL (8.4-10.2); Carbon Dioxide 25 mmol/L (22-30); Chloride 107 mmol/L (98-107); Estimated CRCL calculation 144 ml/min; Estimated Glomerular Filt Rate > 60; Glucose 99 mg/dL (65-110); Potassium 3.4 mmol/L (3.4-5.0); Sodium 137 mmol/L (137-145)
[2021-10-28 06:00] VITALS: BP 145/75; PULSE 99; RESP 18; TEMP 36.2; O2SAT 96
[2021-10-28] MEDS: BUMETANIDE INJ 2.5 MG/10 ML VIAL 2 MG IV PUSH (08:13)
[2021-10-28] MEDS: CENTRAL LINE FLUSH 10 ML IV PUSH ×3 (08:13→20:20)
[2021-10-28] MEDS: AMOXICILLIN/CLAVULANATE K 875-125 MG TAB 1 TABLET PO ×2 (08:14→20:16)
[2021-10-28] MEDS: TOPIRAMATE 100 MG TABLET PO (08:14)
[2021-10-28] MEDS: LOSARTAN POTASSIUM 50 MG TABLET PO (08:14)
[2021-10-28] MEDS: POTASSIUM CHLORIDE 20 MEQ TABLET.ER 40 MEQ PO ×2 (08:14→17:23)
[2021-10-28] MEDS: ENOXAPARIN 40 MG/0.4 ML SYRINGE SUB-Q (08:14)
[2021-10-28] MEDS: PANTOPRAZOLE 40 MG TABLET PO (08:14)
--- NOTE | 2021-10-28 11:55 | PM.PNGS ---
Progress Note: A&P Assessment and Plan (1) Status post Quinton fundoplication: Code(s): Z98.890 - Other specified postprocedural states Status: Acute Assessment and Plan: Tolerating low fiber diet. Will stop PARTNER CCO and start oral analgesics. Continue to diurese with IV Bumex. Start increasing activity and try ambulating a few times today. (2) Acute kidney injury: Code(s): N17.9 - Acute kidney failure, unspecified Status: Acute Assessment and Plan: Creatinine 0.7, normal again today. Good urine output. Will remove Hensley catheter today. (3) Hypotension: Qualifiers: Hypotension type: hypotension due to hypovolemia Qualified Code(s): I95.89 - Other hypotension; E86.1 - Hypovolemia Code(s): I95.9 - Hypotension, unspecified Status: Resolved Assessment and Plan: Still no issues with hypotension overnight or this morning. BP stable. (4) Elevated LFTs: Code(s): R79.89 - Other specified abnormal findings of blood chemistry Status: Acute Assessment and Plan: LFTs continue to trend down today. (5) Postoperative anemia: Code(s): D64.9 - Anemia, unspecified Status: Acute Assessment and Plan: Hgb 8.0, still slight downward trend, but no signs of active bleeding. Continue to monitor labs. Transfuse only as needed. Additional Plan I have discussed the plan of care with Dr. Zavala. Subjective Subjective Date/Time Seen: 10/28/21 10:55 Post Op day: 4 Patient reports: no new complaints, feels better, flatus, bowel movement and afebrile Interval history: This is a 51 yo M who presented on 10/24/21 for laparoscopic Quinton fundoplication. Chart reviewed. Patient seen and examined this morning. He reports feeling a little better today, but is still complaining of RUQ abdominal pain near his subcostal trocar site. He still has generalized weakness and is using a walker to ambulate. He is tolerating his diet without dysphagia or heartburn. No dizziness or light-headedness. Also complaining of sinus congestion and drainage, requesting Mucinex which he typically takes at home for same symptoms. Review of Systems Review of Systems: All systems reviewed & are unremarkable except as noted in HPI and below Exam Const: General: no acute distress and awake Orientation/consciousness: patient oriented x3 Resp: Effort & Inspection: normal respiratory effort Auscultation: clear to auscultation bilaterally Cardio: Rate: regular rate Rhythm: regular rhythm GI: Inspection: Abdominal wall edema (improving) and incision (Incisions dry, healing as expected with glue intact) GI Palp: Yes Soft to palpation, Yes Tenderness to palpation present (GI) (mostly in RUQ near right subcostal trocar site), No Guarding due to palpation present (GI) and No Rebound tenderness present Auscultation: normal bowel sounds Neuro: General: moves all extremities and no focal motor deficits Extrem: General: no calf tenderness and edema bilateral (mild) Psych: Insight: Good insight present (Psych) Judgement: Good judgement present (Psych) Objective Data Vital Signs Vital Signs: Vital Signs - 24 hr 10/27/21 12:00 10/27/21 12:36 10/27/21 16:00 Temperature 96.7 F L 98.8 F Pulse Rate 105 H 109 H Respiratory Rate 18 18 18 Blood Pressure 133/78 126/68 Pulse Oximetry 98 98 96 10/27/21 20:00 10/27/21 22:45 10/28/21 06:00 Temperature 97.7 F 97.1 F L Pulse Rate 107 H 99 Respiratory Rate 16 18 Blood Pressure 132/73 145/75 H Pulse Oximetry 100 96 96 Intake/Output Intake/Output: Intake & Output 10/25/21 10/26/21 10/27/21 10/28/21 22:59 22:59 23:59 23:59 Intake Total 764 Output Total 600 Balance 164 Meds/Results Medications: Active Medications Generic Name Dose Route Start Last Admin Trade Name Freq PRN Reason Stop Dose Admin Acetaminophen 500 mg 10/24/21 17:18 10/27/21 00:00 Acetaminophen 500 Mg Tablet PO 500 mg Q6H PRN
[2021-10-28 12:00] VITALS: BP 124/74; PULSE 100; RESP 18; TEMP 36.4; O2SAT 94
[2021-10-28] MEDS: HYDROcodone/acetaminophen (*CRX) 5-325 MG TABLET 1 TAB PO ×3 (13:25→23:14)
--- NOTE | 2021-10-28 14:06 | PM.IMPN ---
Progress Note: A&P Assessment and Plan (1) Hypotension: Qualifiers: Hypotension type: hypotension due to hypovolemia Qualified Code(s): I95.89 - Other hypotension; E86.1 - Hypovolemia Code(s): I95.9 - Hypotension, unspecified Status: Resolved Assessment and Plan: RESOLVED with IV fluids. [place] related to anti-HTN medications, narcotics and blood loss. It appears he has had a reaction in the past to narcotics causing HoTN. -10/25 CT abdomen and pelvis: 8.4 x 7.1 cm hematoma along the greater curvature of the stomach and small to moderate volume of hemoperitoneum. Small amount of pneumomediastinum and free intraperitoneal gas, consistent with laparoscopic Quinton fundoplication performed yesterday. -continue Augmentin (2) Intra-abdominal hematoma: Status: Acute Assessment and Plan: Patient with increasing abdominal pain and HoTN. CT scan showing intrabdominal hematoma. -hemoglobin has trended down from 13.1 on 10/25 to 8.0 today -Monitor closely and transfuse as needed (3) Hiatal hernia with GERD: Code(s): K44.9 - Diaphragmatic hernia without obstruction or gangrene; K21.9 - Gastro-esophageal reflux disease without esophagitis Status: Acute Assessment and Plan: Status post laparoscopic Quinton fundoplication 10/24/2021 -surgery following the patient -continue pain control per GenSurg -tolerating current low fiber diet (4) Anxiety: Code(s): F41.9 - Anxiety disorder, unspecified Status: Acute Assessment and Plan: Mood stable. He has Xanax available prn (5) Depression: Code(s): F32.9 - Major depressive disorder, single episode, unspecified Status: Acute Assessment and Plan: Mood stable. Continue topamax and viibryd (6) Acute kidney injury: Code(s): N17.9 - Acute kidney failure, unspecified Status: Acute Assessment and Plan: Patient with worsening renal function and decreased urine output with Cr to 2.5 related to ATN from HoTN. -renal ultrasound showing normal kidneys -creatinine kinase normal and urine eosinophils negative -Renal function normal now. Tolerating Cozaar and Bumex -Would consider stopping IV fluids and stopping Bumex (7) Elevated LFTs: Code(s): R79.89 - Other specified abnormal findings of blood chemistry Status: Acute Assessment and Plan: Likely related to shock liver due to hypotension episodes and/or related to the laparoscopic procedure -hepatitis panel negative and right upper quadrant ultrasound showing diffuse hepatic steatosis -LFTs trending down -continue to monitor (8) DVT prophylaxis: Code(s): Z29.9 - Encounter for prophylactic measures, unspecified Status: Acute Assessment and Plan: Lovenox Subjective Date/time seen: 10/28/21 14:06 Interval history: 51yo male with HTN, anxiety and GERD here for elective laparoscopic Quinton fundoplication. Resuming care. Chart reviewed. pain currently is 3/10. No chest pain. Eating and tolerating a but does have some food sticking sensation upper and lower chest. Cough is productive of trinh sputum. Patient states he has had an episode of low BP in July after taking 2 Norcos. Exam Narrative: AF 97.6 124/74 100 18 94%RA Gen - NARD sitting up in chair Chest - decreased BS in the bases o/w clear CV - RRR S1/S2 Abd - soft, incisions are clean/dry/intact Ext - No pedal edema Psych - Nml mood and affect Skin - Warm and dry Objective Data Vital Signs Vital Signs: Vital Signs - 24 hr 10/27/21 16:00 10/27/21 20:00 10/27/21 22:45 Temperature 98.8 F 97.7 F Pulse Rate 109 H 107 H Respiratory Rate 18 16 Blood Pressure 126/68 132/73 Pulse Oximetry 96 100 96 10/28/21 06:00 10/28/21 12:00 Temperature 97.1 F L 97.6 F Pulse Rate 99 100 Respiratory Rate 18 18 Blood Pressure 145/75 H 124/74 Pulse Oximetry 96 94 Intake/Output Intake/Output: Intake
[2021-10-28 16:00] VITALS: BP 131/61; PULSE 99; RESP 19; TEMP 36.3; O2SAT 99
[2021-10-28] MEDS: PSEUDOEPHEDRINE HCL 30 MG TABLET 60 MG PO ×2 (17:24→23:12)
[2021-10-28 21:56] VITALS: PULSE 98; O2SAT 94
[2021-10-28 22:00] VITALS: BP 151/86; PULSE 98; RESP 18; TEMP 36.1; O2SAT 99
[2021-10-29] MEDS: HYDROcodone/acetaminophen (*CRX) 5-325 MG TABLET 1 TAB PO ×2 (05:08→11:54)
[2021-10-29] MEDS: CENTRAL LINE FLUSH 10 ML IV PUSH (05:10)
[2021-10-29 06:00] VITALS: BP 148/74; PULSE 89; RESP 18; TEMP 36.4; O2SAT 100
[2021-10-29 06:03] LABS: Hematocrit 26.2 % (42.0-52.0); Hemoglobin 8.5 g/dL (14.0-18.0); Mean Corpuscular HGB Conc 32.4 g/dl (32-36); Mean Corpuscular Hemoglobin 30.5 pg (26-34); Mean Corpuscular Volume 93.9 fl (80-100); Mean Platelet Volume 9.1 fl (7.4-10.4); Platelet Count Result 265 k/mm3 (150-375); Red Blood Count 2.79 M/mm3 (4.6-6.20); White Blood Count 6.9 K/mm3 (4.5-10.0)
[2021-10-29 06:12] LABS: Anion Gap 6 mmol/L (8-16); Blood Urea Nitrogen 15 mg/dL (9-20); Calcium 8.8 mg/dL (8.4-10.2); Carbon Dioxide 27 mmol/L (22-30); Chloride 104 mmol/L (98-107); Estimated CRCL calculation 114 ml/min; Estimated Glomerular Filt Rate > 60; Glucose 103 mg/dL (65-110); Magnesium 1.9 mg/dL (1.6-2.3); Phosphorus 2.5 mg/dL (2.5-4.5); Potassium 3.8 mmol/L (3.4-5.0); Sodium 137 mmol/L (137-145)
[2021-10-29] MEDS: AMOXICILLIN/CLAVULANATE K 875-125 MG TAB 1 TABLET PO (09:13)
[2021-10-29] MEDS: POTASSIUM CHLORIDE 20 MEQ TABLET.ER 40 MEQ PO (09:13)
[2021-10-29] MEDS: LOSARTAN POTASSIUM 50 MG TABLET PO (09:14)
[2021-10-29] MEDS: ENOXAPARIN 40 MG/0.4 ML SYRINGE SUB-Q (09:14)
[2021-10-29] MEDS: TOPIRAMATE 100 MG TABLET PO (09:14)
[2021-10-29] MEDS: PANTOPRAZOLE 40 MG TABLET PO (09:15)
[2021-10-29] MEDS: BUMETANIDE INJ 2.5 MG/10 ML VIAL 2 MG IV PUSH (09:15)
--- NOTE | 2021-10-29 12:21 | PM.IMPN ---
Progress Note: A&P Assessment and Plan (1) Hypotension: Qualifiers: Hypotension type: hypotension due to hypovolemia Qualified Code(s): I95.89 - Other hypotension; E86.1 - Hypovolemia Code(s): I95.9 - Hypotension, unspecified Status: Resolved Assessment and Plan: RESOLVED with IV fluids. [place] related to anti-HTN medications, narcotics and/or blood loss. It appears he has had a reaction in the past to narcotics causing HoTN. -CT abdomen and pelvis 10/25: 8.4 x 7.1 cm hematoma along the greater curvature of the stomach and small to moderate volume of hemoperitoneum. Small amount of pneumomediastinum and free intraperitoneal gas, consistent with laparoscopic Quinton fundoplication performed yesterday. - Hgb stable. (2) Intra-abdominal hematoma: Status: Acute Assessment and Plan: Patient with increasing abdominal pain and HoTN. CT scan showing intraabdominal hematoma. -hemoglobin has trended down from 13.1 on 10/25 to 8 range but stable now. -Symptoms slowly improving. (3) Hiatal hernia with GERD: Code(s): K44.9 - Diaphragmatic hernia without obstruction or gangrene; K21.9 - Gastro-esophageal reflux disease without esophagitis Status: Acute Assessment and Plan: Status post laparoscopic Quinton fundoplication 10/24/2021 -continue pain control per GenSurg -tolerating current low fiber diet (4) Anxiety: Code(s): F41.9 - Anxiety disorder, unspecified Status: Acute Assessment and Plan: Mood stable. He has Xanax available prn (5) Depression: Code(s): F32.9 - Major depressive disorder, single episode, unspecified Status: Acute Assessment and Plan: Mood stable. Continue topamax and viibryd. (6) Acute kidney injury: Code(s): N17.9 - Acute kidney failure, unspecified Status: Acute Assessment and Plan: Patient with worsening renal function and decreased urine output with Cr to 2.5 related to ATN from HoTN. -renal ultrasound showing normal kidneys -creatinine kinase normal and urine eosinophils negative -Renal function normal now. Tolerating Cozaar and Bumex -Continue to follow (7) Elevated LFTs: Code(s): R79.89 - Other specified abnormal findings of blood chemistry Status: Acute Assessment and Plan: Likely related to shock liver due to hypotension episodes and/or related to the laparoscopic procedure -hepatitis panel negative and right upper quadrant ultrasound showing diffuse hepatic steatosis -LFTs trending down -continue to monitor (8) DVT prophylaxis: Code(s): Z29.9 - Encounter for prophylactic measures, unspecified Status: Acute Assessment and Plan: [place] Subjective Date/time seen: 10/29/21 12:21 Interval history: 51yo male with HTN, anxiety and GERD here for elective laparoscopic Quinton fundoplication. Feels much better today. Slept well. +BMs. Abd pain better. Upper dysphagia resolved. Still with food sticking sensation in the epigastric region. Exam Narrative: AF 97.6 148/74 89 18 100% ra Gen - NARD sitting up in chair Chest - decreased BS in the Rt base o/w clear CV - RRR S1/S2 Abd - soft, less tender, incisions are clean/dry/intact Ext - No pedal edema Psych - Nml mood and affect. In good spirits Skin - Warm and dry Objective Data Vital Signs Vital Signs: Vital Signs - 24 hr 10/28/21 16:00 10/28/21 21:56 10/28/21 22:00 Temperature 97.4 F L 96.9 F L Pulse Rate 99 98 98 Respiratory Rate 19 18 Blood Pressure 131/61 151/86 H Pulse Oximetry 99 94 99 10/29/21 06:00 Temperature 97.6 F Pulse Rate 89 Respiratory Rate 18 Blood Pressure 148/74 H Pulse Oximetry 100 Intake/Output Intake/Output: Intake & Output 10/26/21 10/27/21 10/28/21 10/29/21 22:59 23:59 23:59 23:59 Intake Total 2464 440 Output Total 2650 400 Balance -186 40 Meds/Results Medications: Active Medications Generic Na
--- NOTE | 2021-10-29 13:08 | PM.DS ---
DS: Admitting Diagnosis Discharge Date 10/29/21 Admitting Diagnosis GERD Esophagitis Hiatal hernia Hypertension BMI 37 Depression Anxiety DS: Discharge Diagnosis Discharge Diagnosis (1) Status post Quinton fundoplication: Code(s): Z98.890 - Other specified postprocedural states Status: Acute Assessment and Plan: 10/24/[address] Laparoscopic Quinton fundoplication by Dr. aZvala (2) Postoperative anemia: Code(s): D64.9 - Anemia, unspecified Status: Acute Assessment and Plan: Preoperative hgb 14.6 and POD1 hgb was 13.1. After findings of the retro gastric hematoma on the CT scan of the abdomen and pelvis, serial H&H was monitored. Hemoglobin trended down through postop day for as low as 8.0. No signs of active bleeding. Hgb now up to 8.5 today. It was felt this was more likely related to the IV fluids given during his hypotensive episodes and equilibration. Vital signs stable with no issues with hypotension in 3 days. Will repeat labs as an outpatient to continue to follow. (3) Elevated LFTs: Code(s): R79.89 - Other specified abnormal findings of blood chemistry Status: Acute Assessment and Plan: Postop day 1 patient was found to have significantly elevated AST and ALT, which was following his hypotensive event. This was felt to be related to shock liver and hypotension. His hypertension was treated and labs monitored. LFTs trending down. Will repeat labs as an outpatient. (4) Acute kidney injury: Code(s): N17.9 - Acute kidney failure, unspecified Status: Acute Assessment and Plan: Creatinine normal preoperatively and on postop day 1. Postop day 2 creatinine jumped up to 2.5. Renal ultrasound showed no hydronephrosis. Patient was making good urine. [place] this was likely related to ATN from hypotension. He was treated with IV fluids and monitoring. Creatinine in normalized and does remain stable through the rest of his hospitalization. (5) Hypotension: Qualifiers: Hypotension type: hypotension due to hypovolemia Qualified Code(s): I95.89 - Other hypotension; E86.1 - Hypovolemia Code(s): I95.9 - Hypotension, unspecified Status: Resolved (6) Intra-abdominal hematoma: Status: Acute Assessment and Plan: CT scan of the abdomen and pelvis was done on postop day 1 and showed an 8.4 x 7.1 cm hematoma along the greater curvature of the stomach and small to moderate volume of hemoperitoneum. Also findings consistent with laparoscopic Quinton fundoplication noted. The hematoma was behind the stomach and did not appear to be associated with the spleen which would be much more worrisome for ongoing bleeding. It was not felt that the hematoma was related to his hypotension and rapid response. This was monitored with serial labs and exams, which remained stable. No plans to reoperate to evacuate hematoma. (7) Sinus drainage: Code(s): J34.89 - Other specified disorders of nose and nasal sinuses Status: Acute Assessment and Plan: Patient was dealing with sinus drainage and pressure prior to his surgery and was actually taking Augmentin for this. He was continued on Augmentin while inpatient and this has reportedly improved. Pseudoephedrine was also added and prescribed at discharge. Follow-up with PCP. (8) Depression: Code(s): F32.9 - Major depressive disorder, single episode, unspecified Status: Acute Assessment and Plan: Mood stable. Home medication continued. (9) Anxiety: Code(s): F41.9 - Anxiety disorder, unspecified Status: Acute Assessment and Plan: Mood stable. Home medication continued. DS: Summary Hospital Course Reason for hospitalization: This is a 51-year-old male who was having reflux symptoms despite PPI therapy twice daily. He was having regurgitation symptoms as well and had an EGD while on PPIs last January which showed grade 2 esophagitis. He was s
[2021-10-29 14:23] VITALS: PULSE 92; O2SAT 95
[2021-10-31 15:56] LABS: Chloride Rand Ur <20 mmol/L (32-290); Creatinine Random Urine 128 mg/dL (20-320)
== END 2021-10-29 14:15 | disposition home or self-care (01) | DRG 326 ==
LOC: ANHSURGERY 09:08 → ANH3MEDSUR 10-28 08:29 → ANHICU 10-30 14:53
PROVIDERS: Internal Medicine; Admitting Provider Surgery; PCP Emergency Medicine; Visit Provider Nurse Practitioner Family
PROC: 0DV44ZZ Restriction of Esophagogastric Junction, Percutaneous Endoscopic Approach (ICD-10-PCS; CPT 43281; principal; 2021-10-24 12:00)
DX: K44.9 Diaphragmatic hernia without obstruction or gangrene (principal); K72.00 Acute and subacute hepatic failure without coma; N17.0 Acute kidney failure with tubular necrosis; K91.870 Postprocedural hematoma of a digestive system organ or structure following a digestive system procedure; D64.89 Other specified anemias; K21.00 Gastro-esophageal reflux disease with esophagitis, without bleeding; I10 Essential (primary) hypertension; F32.A Depression, unspecified; F41.9 Anxiety disorder, unspecified; R40.4 Transient alteration of awareness; N39.498 Other specified urinary incontinence; E86.1 Hypovolemia; J34.89 Other specified disorders of nose and nasal sinuses; I95.89 Other hypotension; I95.2 Hypotension due to drugs; T40.605A Adverse effect of unspecified narcotics, initial encounter; T46.5X5A Adverse effect of other antihypertensive drugs, initial encounter; I95.81 Postprocedural hypotension; E66.9 Obesity, unspecified; Z68.39 Body mass index [BMI] 39.0-39.9, adult; Z90.49 Acquired absence of other specified parts of digestive tract; Z98.1 Arthrodesis status
CPT/HCPCS: 36415; 36569; 74176; 76705; 76775; 80048; 80053; 80074; 82436; 82550; 82570; 83605; 83735; 84100; 84133; 84300; 84443; 85014; 85018; 85025; 85027; 85610; 85730; 85999; 86850; 86900; 86901; A9270; C1751; J0330; J0360; J0690; J1100; J1170; J1200; J1650; J2060; J2250; J2270; J2405; J2704; J2710; J3010; J7030; J7040; J7050; J7120

== ENCOUNTER 2022-01-02 07:52 | Outpatient (CLI) | payer BC, SELFPAY ==
--- NOTE | ~2022-01-02 | XR_ITS ---
EXAMINATION: XR UGIAC w barium swallow DATE: 01/02/2022 08:50 INDICATION: Dysphagia. Hiatal hernia and reflux post Quinton fundoplication. TECHNIQUE: The patient drank thick barium, gas-producing crystals, and thin barium. Fluoroscopic spot radiographs of the hypopharynx, esophagus, stomach and proximal small bowel were obtained. Fluorosco py exposure time was 2.7 minutes. A total of 1880 fluoroscopic images were recorded. COMPARISON: None. FINDINGS: The pharynx is symmetric and without evidence of mass lesion or mucosal irregularity. There is mass e ffect upon the gastric cardia and cisterns compression of the distal esophagus with smooth mucosal co ntours. Appearance is consistent with provided history of a Quinton fundoplication. There is intermitt ent dilation of the esophagus above the level of the Quinton fundoplication following the swallow whic h resolves following relaxation of the lower esophageal sphincter and passage of contrast into the st omach. The lumen of the esophagus at the level of the fundoplication measures up to maximal of 10 x 8 mm on the BULGARIAN and TOLBERT projections respectively. The esophagus is otherwise normal without mass or mu cosal irregularity. Esophageal motility is normal. There is no hiatal hernia. There was no gastroesop hageal reflux with provocative maneuvers. The stomach and proximal small bowel are normal. Postoperat daniel changes in the cervical spine including C5-C6 anterior spinal fusion without instrumentation and C6-C7 disc replacement. IMPRESSION: 1. Changes consistent with provided history of a Quinton fundoplication. Otherwise normal esophagram a nd upper GI study with no evident reflux. Reviewed, dictated and finalized at location A. IMPRESSION: 1. Changes consistent with provided history of a Quinton fundoplication. Otherwi se normal esophagram and upper GI study with no evident reflux.
== END 2022-01-02 07:53 | disposition home or self-care (01) ==
PROVIDERS: PCP Emergency Medicine; Visit Provider Surgery
DX: R13.10 Dysphagia, unspecified (principal); Z98.890 Other specified postprocedural states; Z98.1 Arthrodesis status
CPT/HCPCS: 74246

== ENCOUNTER 2022-02-10 13:05 | Emergency (ER) | payer BC, SELFPAY ==
[2022-02-10 13:14] VITALS: BP 147/90; PULSE 86; RESP 16; TEMP 37.5; O2SAT 100
--- NOTE | 2022-02-10 14:07 | ED.URI ---
HPI - URI/Sore Throat General Chief Complaint: Upper Respiratory Infection Stated Complaint: head cold, congestion Time Seen by Provider: 02/10/22 13:43 Source: patient Mode of arrival: ambulatory Limitations: no limitations History of Present Illness HPI Narrative: Patient presents today complaining of 3-day history of postnasal drip, sinus pressure with frontal headache, sweats, and cough. Reports his nasal drainage is brown at times. States symptoms began after he inhaled a large dust cloud at work. History of balloon sinuplasty 3 to 4 years ago. He has been taking Advil Cold and Sinus and Mucinex with mild relief. He has been vaccinated against COVID-19. Related Data Home Medications Medication Instructions Recorded Confirmed glucosamine sulfate dipotassium Cl 1 cap PO HS 10/18/21 02/10/22 500 mg-chondroitin 400 mg capsule (Glucosamine Sulfate 2 KCL-Chondroitin) rizatriptan 10 mg tablet 10 mg PO PRN PRN Migraine Headache 10/18/21 02/10/22 ibuprofen 200 mg capsule 200 mg PO Q6H PRN Pain 11/07/21 02/10/22 acetaminophen 650 mg 650 mg PO PRN PRN Pain 02/10/22 02/10/22 tablet,extended release (Tylenol 8 Hour) vilazodone 40 mg tablet (Viibryd) 40 tablet PO DAILY 02/10/22 02/10/22 Allergies Allergy/AdvReac Type Severity Reaction Status Date / Time No Known Allergies Allergy Verified 02/10/22 13:35 Review of Systems Review of Systems: CONSTITUTIONAL: Denies body aches, fever, chills. + Sweats EYES: Denies visual changes, redness, or discharge. ENT: Denies rhinorrhea, sore throat, or otalgia.+ Nasal congestion, postnasal drip, sinus pressure CARDIOVASCULAR: Denies chest pain, palpitations, or edema. RESPIRATORY: Denies dyspnea.+ Cough GASTROINTESTINAL: Denies abdominal pain, nausea, vomiting, or diarrhea. GENITOURINARY: Denies dysuria or hematuria. SKIN: Denies rash, itching, or wounds. MUSCULOSKELETAL: Denies back pain, joint pain, or myalgia. NEUROLOGIC: Denies headache, numbness, tingling, or weakness. PSYCH: Denies depression or anxiety. [facility] Past Medical History Medical History Abnormal CT scan Anxiety BMI 38.0-38.9,adult Complicated grieving Depression Encounter for screening colonoscopy GERD (gastroesophageal reflux disease) Hiatal hernia Hiatal hernia with GERD History of frequent headaches HTN (hypertension) Surgical History Surgical History H/O sinus surgery History of cervical spinal arthrodesis History of cholecystectomy History of lumbar spinal fusion History of shoulder surgery History of shoulder surgery History of sinus surgery Status post laparoscopic Quinton fundoplication 10/24/21 Family History Family History Other Cerebrovascular accident Family history of coronary artery disease Hypertension Social History Social History Social History: Patient drinks 2-3 cups of caffeine weekly. Smoking status: Never smoker Second hand tobacco smoke exposure: No Alcohol intake: former Drinks per week: 12 Alcohol use details: Patient drinks alcohol rarely. 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 Please see nursing chart for further information. There is no relevant family history pertinent to the presenting complaint Exam Narrative: GENERAL: Well-appearing, well-nourished, and in no acute distre
== END 2022-02-10 14:19 | disposition home or self-care (01) ==
PROVIDERS: Emergency Provider Nurse Practitioner; PCP Emergency Medicine
DX: U07.1 COVID-19 (principal); K21.9 Gastro-esophageal reflux disease without esophagitis; I10 Essential (primary) hypertension; F32.A Depression, unspecified
CPT/HCPCS: 87426; 99213; C9803; G0463

== ENCOUNTER 2022-06-01 13:21 | Emergency (ER) | payer BC, SELFPAY ==
--- NOTE | 2022-06-01 13:24 | ED.URI ---
HPI - URI/Sore Throat General Chief Complaint: Upper Respiratory Infection Stated Complaint: sinus pressure, blood in snot,migraine Time Seen by Provider: 06/01/22 13:24 Source: patient and RN notes reviewed History of Present Illness HPI Narrative: Patient is a 52-year-old male who presents the urgent care with complaints of sinus pressure, nasal pressure, bloody nose and headaches. Patient states that he has been taking his allergy medication but does suffer from recurrent sinusitis especially due to his job working at the [employer]. Patient states is been ongoing for approximately 2+ weeks. Patient has had a history of sinus balloon pump surgery. Denies any recent fevers, nausea or vomiting. No other acute complaints. No acute distress noted. Patient read a plan of care. Some parts of this dictation were generated by voice recognition software and may contain typographical and/or grammatical inaccuracies. Related Data Home Medications Medication Instructions Recorded Confirmed glucosamine sulfate dipotassium Cl 1 cap PO HS 10/18/21 02/10/22 500 mg-chondroitin 400 mg capsule (Glucosamine Sulfate 2 KCL-Chondroitin) rizatriptan 10 mg tablet 10 mg PO PRN PRN Migraine Headache 10/18/21 02/10/22 ibuprofen 200 mg capsule 200 mg PO Q6H PRN Pain 11/07/21 02/10/22 acetaminophen 650 mg 650 mg PO PRN PRN Pain 02/10/22 02/10/22 tablet,extended release (Tylenol 8 Hour) vilazodone 40 mg tablet (Viibryd) 40 tablet PO DAILY 02/10/22 02/10/22 alprazolam 0.5 mg tablet mg 06/01/22 Allergies Allergy/AdvReac Type Severity Reaction Status Date / Time No Known Allergies Allergy Verified 04/22/22 15:50 Review of Systems Review of Systems: CONSTITUTIONAL: Denies fever, chills, or sweats. EYES: Denies visual changes, redness, or discharge. ENT: Reports of rhinorrhea, nasal congestion, bloody nose and sinus pressure CARDIOVASCULAR: Denies chest pain, palpitations, or edema. RESPIRATORY: Denies cough or dyspnea. GASTROINTESTINAL: Denies abdominal pain, nausea, vomiting, or diarrhea. GENITOURINARY: Denies dysuria or hematuria. SKIN: Denies rash or itching. MUSCULOSKELETAL: Denies back pain, joint pain, or myalgia. NEUROLOGIC: Denies headache, numbness, or weakness. All other systems reviewed are negative, except as documented in HPI. [facility] Past Medical History Medical History Abnormal CT scan Anxiety BMI 38.0-38.9,adult Complicated grieving Depression Encounter for screening colonoscopy GERD (gastroesophageal reflux disease) Hiatal hernia Hiatal hernia with GERD History of frequent headaches HTN (hypertension) Surgical History Surgical History H/O sinus surgery History of cervical spinal arthrodesis History of cholecystectomy History of lumbar spinal fusion History of shoulder surgery History of shoulder surgery History of sinus surgery Status post laparoscopic Quinton fundoplication 10/24/21 Family History Family History Other Cerebrovascular accident Family history of coronary artery disease Hypertension Social History Social History Social History: Patient drinks 2-3 cups of caffeine weekly. Smoking status: Never smoker Second hand tobacco smoke exposure: No Alcohol intake: former Drinks per week: 12 Alcohol use details: Patient drinks alcohol rarely. 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
[2022-06-01 13:34] VITALS: BP 153/94; BP 168/105; PULSE 73; RESP 16; TEMP 36.8; O2SAT 98
== END 2022-06-01 13:47 | disposition home or self-care (01) ==
PROVIDERS: Emergency Provider Nurse Practitioner Family; PCP Emergency Medicine
DX: J32.9 Chronic sinusitis, unspecified (principal); K21.9 Gastro-esophageal reflux disease without esophagitis; I10 Essential (primary) hypertension; F41.9 Anxiety disorder, unspecified; F32.A Depression, unspecified
CPT/HCPCS: 99213; G0463

== ENCOUNTER 2022-06-17 12:59 | Emergency (ER) | payer BC, SELFPAY ==
[2022-06-17 13:08] VITALS: BP 130/88; PULSE 132; RESP 18; TEMP 37.5; O2SAT 98
--- NOTE | 2022-06-17 13:14 | ED.NAVMDI ---
HPI - Nausea/Vomiting/Diarrhea General Chief complaint: Nausea/Vomiting/Diarrhea Stated complaint: DIARRHEA/NOT SLEEPING Time Seen by Provider: 06/17/22 13:14 Source: patient and RN notes reviewed Mode of arrival: ambulatory Limitations: no limitations History of Present Illness HPI Narrative: 52 y/o male presents for complaints of diarrhea and 'flu' like s/s for 2 days. Endorses persistent watery diarrhea about every hour, generalized abdominal discomfort, and chills. Fevers at home with a t-max of 101.3. Patient states that he is unable to vomit since recent GERD/hiatal hernia surgery 10/2021, and has had intermittent episodes of watery stool since surgery. He is tolerating fluids and crackers. States that he can feel his heart racing, and endorses 'CP' pointing to his lower sternum/epigastric region. He also states that voiding has been more difficult since he has been ill stating that he has to bear down more to get urine out. Denies SOB, or wheezing, jaw pain, arm pain, blood in stool, dysuria, hematuria, prostate issues, or bladder discomfort. He has taken Imodium x 2 today, and Zofran. Patient's daughter had similar s/s this last week. Patient completed a course of Augmentin for sinusitis dx 06/01, and has not taken any new abx. Related Data Home Medications Medication Instructions Recorded Confirmed glucosamine sulfate dipotassium Cl 1 cap PO HS 10/18/21 02/10/22 500 mg-chondroitin 400 mg capsule (Glucosamine Sulfate 2 KCL-Chondroitin) rizatriptan 10 mg tablet 10 mg PO PRN PRN Migraine Headache 10/18/21 02/10/22 ibuprofen 200 mg capsule 200 mg PO Q6H PRN Pain 11/07/21 02/10/22 acetaminophen 650 mg 650 mg PO PRN PRN Pain 02/10/22 02/10/22 tablet,extended release (Tylenol 8 Hour) vilazodone 40 mg tablet (Viibryd) 40 tablet PO DAILY 02/10/22 02/10/22 alprazolam 0.5 mg tablet mg 06/01/22 Allergies Allergy/AdvReac Type Severity Reaction Status Date / Time No Known Allergies Allergy Verified 04/22/22 15:50 Review of Systems Review of Systems: CONSTITUTIONAL: Endorses malaise fever and chills ENT: Denies rhinorrhea, congestion CARDIOVASCULAR: Reports CP referring to the lower sternum/epigastric region. Denies arm pain, jaw pain. Reports heart racing. RESPIRATORY: Denies cough, dyspnea, or wheezing GASTROINTESTINAL: Endorses generalized abdominal pain, nausea, and watery non-bloody diarrhea. Denies melena, vomiting, or hematemesis GENITOURINARY: Denies dysuria, hematuria, or CVA tenderness. All systems reviewed & are unremarkable except as noted in HPI and below PMFSH Past Medical History Medical History Abnormal CT scan Anxiety BMI 38.0-38.9,adult Complicated grieving Depression Encounter for screening colonoscopy GERD (gastroesophageal reflux disease) Hiatal hernia Hiatal hernia with GERD History of frequent headaches HTN (hypertension) Surgical History Surgical History H/O sinus surgery History of cervical spinal arthrodesis History of cholecystectomy History of lumbar spinal fusion History of shoulder surgery History of shoulder surgery History of sinus surgery Status post laparoscopic Quinton fundoplication 10/24/21 Family History Family History Other Cerebrovascular accident Family history of coronary artery disease Hypertension Social History Social History Social History: Patient drinks 2-3 cups of caffeine weekly. Smoking status: Never smoker Second hand tobacco smoke exposure: No Alcohol intake: former Drinks per week: 12 Alcohol use details: Patient drinks alcohol rarely. Substance use: never Substance use type: does not use Additional living arrangements comments: Additional occupation/education comments: [employer]
== END 2022-06-17 14:05 | disposition home or self-care (01) ==
PROVIDERS: Emergency Provider Nurse Practitioner Family; PCP Emergency Medicine
DX: R19.7 Diarrhea, unspecified (principal); I10 Essential (primary) hypertension
CPT/HCPCS: 87804; 99213; G0463

== ENCOUNTER 2022-06-17 20:06 | Observation (INO) | payer BC, SELFPAY ==
--- NOTE | ~2022-06-17 | XR_ITS ---
EXAMINATION: XR chest 2V Exam Date/Time: 06/17/2022 20:40 CDT HISTORY: weakness, COUGH, FEVER, SOB Comparison: 10/19/2021. RESULT: Lines, tubes, and devices: Lower cervical fusion hardware. Lungs and pleura: Clear. Cardiomediastinal silhouette: Stable. Other: No acute osseous or upper abdominal finding. IMPRESSION: No acute cardiopulmonary process. Reviewed, dictated and finalized at location K.
--- NOTE | ~2022-06-17 | US_ITS ---
EXAMINATION: US right upper quadrant DATE: 06/18/2022 08:27 INDICATION: Abnormal liver function tests. TECHNIQUE: Multiple grayscale and Doppler ultrasound images of the abdomen were obtained. COMPARISON: CT abdomen and pelvis 06/18/2022 FINDINGS: The pancreas is obscured by bowel gas. There is diffuse hepatic steatosis. There is normal flow in main portal vein. The gallbladder is absent. The common duct is normal and measures 4 mm. IMPRESSION: 1. Diffuse hepatic steatosis. Reviewed, dictated and finalized at location A.
--- NOTE | ~2022-06-17 | CT_ITS ---
EXAMINATION: CT abdomen pelvis w con DATE: 06/18/2022 02:24 INDICATION: Abdominal pain. TECHNIQUE: Computed tomography (CT) of the abdomen and pelvis was performed with 100 mL Omnipaque 350 intravenous contrast. Automated exposure control and iterative reconstruction technique were employe d. The dose-length product was 1023.93 mGy-cm. COMPARISON: CT abdomen and pelvis 10/25/2021 FINDINGS: The visualized portions of the lung bases demonstrate mild atelectasis. No pleural effusion . The heart size is normal. No pericardial effusion. There are changes of fundoplication of the stoma ch with the wrap above the diaphragm. There is diffuse hepatic steatosis. There are changes of cholec ystectomy. Calcifications in the spleen are consistent with old granulomatous disease. The pancreas, adrenal glands, and kidneys are normal. There is wall thickening throughout the colon with adjacent f at stranding, consistent with colitis. There are appendicoliths in the appendix, which is otherwise n ormal. There are no pathologically enlarged lymph nodes. There is no free intraperitoneal fluid. Ther e are changes of anterior fusion procedure at L5-S1. There is a device between the spinous processes at L4-L5. There is a chronic L1 compression fracture. IMPRESSION: 1. Pancolitis. Reviewed, dictated and finalized at location A. IMPRESSION: 1. Pancolitis.
[2022-06-17 20:15] VITALS: BP 135/91; PULSE 114; RESP 12; TEMP 36.6; O2SAT 97
--- NOTE | 2022-06-17 20:18 | ECG_ITS ---
Measurements Intervals [place] Rate: 113 P: 24 OH: 157 QRS: 35 QRSD: 105 T: 29 QT: 319 QTc: 438 Interpretive Statements SINUS TACHYCARDIA POSSIBLE LEFT ATRIAL ENLARGEMENT BORDERLINE R WAVE PROGRESSION, ANTERIOR LEADS ABNORMAL ECG COMPARED TO ECG 10/19/2021 09:40:36 SINUS TACHYCARDIA NOW PRESENT Electronically Signed On 06-17-2022 21:07:15 CDT by Aidan Hooker D.O.
[2022-06-17 20:35] LABS: Hematocrit 46.8 % (42.0-52.0); Hemoglobin 16.3 g/dL (14.0-18.0); Mean Corpuscular HGB Conc 34.8 g/dl (32-36); Mean Corpuscular Volume 86.2 fl (80-100); Mean Platelet Volume 9.1 fl (7.4-10.4); Platelet Count Result 269 k/mm3 (150-375); Red Blood Count 5.43 M/mm3 (4.6-6.20); Red Cell Distribution Width 12.3 % (11.5-14.5); White Blood Count 16.2 K/mm3 (4.5-10.0)
[2022-06-17 20:55] LABS: Albumin Level 3.8 g/dL (3.5-5.1); Alkaline Phosphatase 236 U/L (38-126); Anion Gap 15 mmol/L (8-16); Bilirubin,Total 3.2 mg/dL (0.2-1.3); Blood Urea Nitrogen 17 mg/dL (9-20); Calcium 8.4 mg/dL (8.4-10.2); Carbon Dioxide 22 mmol/L (22-30); Chloride 94 mmol/L (98-107); Estimated CRCL calculation 103 ml/min; Estimated Glomerular Filt Rate > 60; Glucose 161 mg/dL (65-110); Potassium 3.1 mmol/L (3.4-5.0); Sodium 131 mmol/L (137-145)
[2022-06-17 21:18] LABS: Band Neutrophils Percent 41 % (0-6); Lymphocytes Absolute Manual 0.64 K/mm3 (1.1-4.5); Monocytes Absolute Manual 1.62 K/mm3 (0.1-0.90); Monocytes Percent Manual 10 % (3-9); Myelocytes Percent 2 %; Neutrophils Percent Manual 43 % (46-73); Platelet Estimate Adequate (Adequate); Total Cells Counted 100
[2022-06-17 21:19] LABS: Giant Platelets Present; Rouleaux 1+ (NORMAL); Schistocytes None Seen (NORMAL)
[2022-06-17 21:25] LABS: Alanine Aminotransferase 851 U/L (6-50); Aspartate Amino Transferase 979 U/L (17-59)
--- NOTE | 2022-06-18 00:50 | ED.NAVMDI ---
HPI - Nausea/Vomiting/Diarrhea General Chief complaint: Nausea/Vomiting/Diarrhea <Edenilson Monroe APRN - Last Filed: 06/18/22 00:55> Stated complaint: diarrhea that began Thursday - seen at today <Edenilson Monroe APRN - Last Filed: 06/18/22 00:55> Time Seen by Provider: 06/18/22 00:21 <Edenilson Monroe APRN - Last Filed: 06/18/22 00:55> History of Present Illness HPI Narrative: 52-year-old male history of migraines and anxiety with a surgical history of a Quinton fundoplication and status postcholecystectomy presents to the emergency room for evaluation of generalized abdominal pain, and not feeling well . Patient states he had a Quinton fundoplication in October, and has been experiencing diarrhea daily since. Patient denies seeking any evaluation for his diarrhea since its onset. Patient was seen in urgent care today for diarrhea and not feeling well, and was told to come to the emergency room for further evaluation. Patient denies any blood in his stools. Denies nausea or vomiting. Denies excessive alcohol use. Denies fevers. <Edenilson Monroe APRN - Last Filed: 06/18/22 00:55> Related Data Home medications: Home Medications Medication Instructions Recorded Confirmed glucosamine sulfate dipotassium Cl 1 cap PO HS 10/18/21 02/10/22 500 mg-chondroitin 400 mg capsule (Glucosamine Sulfate 2 KCL-Chondroitin) rizatriptan 10 mg tablet 10 mg PO PRN PRN Migraine Headache 10/18/21 02/10/22 ibuprofen 200 mg capsule 200 mg PO Q6H PRN Pain 11/07/21 02/10/22 acetaminophen 650 mg 650 mg PO PRN PRN Pain 02/10/22 02/10/22 tablet,extended release (Tylenol 8 Hour) vilazodone 40 mg tablet (Viibryd) 40 tablet PO DAILY 02/10/22 02/10/22 alprazolam 0.5 mg tablet mg 06/01/22 <Edenilson Monroe APRN - Last Filed: 06/18/22 00:55> Allergies/Adverse reactions: Allergies Allergy/AdvReac Type Severity Reaction Status Date / Time No Known Allergies Allergy Verified 06/17/22 20:07 <Edenilson Monroe APRN - Last Filed: 06/18/22 00:55> Review of Systems Review of Systems: CONSTITUTIONAL: Denies fever, chills, or sweats. EYES: Denies visual changes, redness, or discharge. ENT: Denies rhinorrhea, congestion, sore throat, or otalgia. CARDIOVASCULAR: Denies chest pain, palpitations, or edema. RESPIRATORY: Denies cough or dyspnea. GASTROINTESTINAL: Reports abdominal pain and diarrhea GENITOURINARY: Denies dysuria or hematuria. SKIN: Denies rash or itching. MUSCULOSKELETAL: Denies back pain, joint pain, or myalgia. NEUROLOGIC: Denies headache, numbness, dizziness, or weakness. PSYCHIATRIC: Denies anxiety or depression. <Edenilson Monroe APRN - Last Filed: 06/18/22 00:55> COUNT INCLUDES THE [facility] Past Medical History Medical History: Medical History Abnormal CT scan Anxiety BMI 38.0-38.9,adult Complicated grieving Depression Encounter for screening colonoscopy GERD (gastroesophageal reflux disease) Hiatal hernia Hiatal hernia with GERD History of frequent headaches HTN (hypertension) <Edenilson Monroe APRN - Last Filed: 06/18/22 00:55> Surgical History Surgical History: Surgical History H/O sinus surgery History of cervical spinal arthrodesis History of cholecystectomy History of lumbar spinal fusion History of shoulder surgery History of shoulder surgery History of sinus surgery Status post laparoscopic Quinton fundoplication 10/24/21 <Edenilson Monroe APRN - Last Filed: 06/18/22 00:55> Family History Family History: Family History Other Cerebrovascular accident Family history of coronary artery disease Hypertension <Edenilson Monroe APRN - Last Filed: 06/18/22 00:55> Social History Social History: Social History Social History: Patient drinks 2-3 cups o
[2022-06-18 01:47] LABS: Lipase 49 U/L (23-300)
[2022-06-18] MEDS: POTASSIUM CHLORIDE 20 MEQ TABLET 40 MEQ PO (02:00)
[2022-06-18] MEDS: SODIUM CHLORIDE 0.9% IV 1,000 ML 999 ML IV CONT (02:05)
[2022-06-18 02:21] LABS: Magnesium 1.7 mg/dL (1.6-2.3)
[2022-06-18 02:21] LABS: Lactic Acid Reflex 1.6 mmol/L (0.7-2.0)
[2022-06-18 03:30] LABS: Bacteria Urine Trace /hpf; Mucus Urine Rare /lpf; RBC Urine 0-2 /hpf (0-2); WBC Urine 0-3 /hpf
[2022-06-18 03:54] LABS: Add Urine Microscopic? YES; Appearance Urine Clear (Clear); Bilirubin Urine 3+ (Negative); Blood Urine Trace-intact (Negative); Color Urine Red (Yellow); Glucose Urine UA Negative (Negative); Ketones Urine 2+ mg/dL (Negative); Leukocyte Esterase Ur Negative LEU/UL (Negative); Nitrate Urine Negative (Negative); Protein Urine 2+ mg/dL (Negative); Specific Grav Ur 1.015 (1.001-1.035)
[2022-06-18] MEDS: LACTATED RINGERS 1,000 ML 125 ML IV CONT ×2 (05:27→13:44)
[2022-06-18] MEDS: metroNIDAZOLE 500 MG/ISO 100ML 500 MG/100 ML BAG 100 MG IVPB (05:28)
[2022-06-18] MEDS: ONDANSETRON INJ 4 MG/2 ML VIAL IV PUSH ×2 (05:38→22:02)
[2022-06-18] MEDS: VANCOMYCIN ORAL 500 MG/10 ML SYRUP PO (05:38)
[2022-06-18 05:48] LABS: SARS-CoV-2 RNA PCR Negative
[2022-06-18 05:58] VITALS: BP 146/96; PULSE 98; RESP 20; TEMP 36.1; O2SAT 100
[2022-06-18 05:59] VITALS: BMI 32.3
--- NOTE | 2022-06-18 06:03 | ADMGEN ---
This patient, Houston Bowers, was admitted to Medical Room 260-01. Patient/family oriented to hospital policies and general routines including ID bracelet, bed and alarms, visiting hours, pain management, procedures, bathroom and other care routines, personal items, smoking policy, room service/diet, and visiting hours. Information on how to activate the Rapid Response Team has been discussed. Patient/Family are encouraged to report perceived risks to care and to ask questions if they do not understand what they are told or what they should do.
[2022-06-18 06:27] LABS: Hepatitis B Surface Antigen Negative (Negative)
[2022-06-18 06:32] LABS: HAV RESULT Negative (Negative); Hepatitis B Core IgM Result Negative (Negative)
[2022-06-18 06:44] LABS: Hepatitis C Virus Antibody Negative (Negative)
--- NOTE | 2022-06-18 08:11 | PM.IMHP ---
H&P: HPI History of Present Illness Date/Time: 06/18/22 08:11 Chief Complaint: Diarrhea Narrative: Patient presents with diarrhea for 8 months. He was having an alternation of soft stools and diarrhea during these 8 months. States that frequency of diarrhea progressed within the past week. He states that he is now having diarrhea every hour. He noticed that he started feeling feverish 5 days ago and had a 101.5 temp 2 days ago. Pain is described as lower abdominal cramping. Associated symptoms include: fever, chills, nausea, and unintentional weight loss since October (~25lbs). He states that bland food seems to ease his stomach and ice cream makes it worse. Patient has had recent antibiotic use, Augmentin, for treatment of sinusitis on 06/01/22. Review of Systems Constitutional: Constitutional: Denies body ache(s), Reports chills and Reports fatigue ENT: Reports dysphagia and Reports nasal congestion Cardiovascular: Cardiovascular: Denies palpitations Respiratory: Respiratory: Denies chest congestion, Denies cough and Denies dyspnea Gastrointestinal: Gastrointestinal: Reports abdominal pain, Denies melena, Denies hematochezia, Denies constipation, Reports diarrhea, Reports nausea, Denies vomiting and Denies hematemesis Genitourinary: Genitourinary: Reports dysuria PMFSH Past Medical History Medical History (Updated 06/18/22 @ 16:48 by Melanie Russo PA-C) Abnormal CT scan Acute non-recurrent maxillary sinusitis Anxiety Bladder retention of urine BMI 38.0-38.9,adult Cervical pain Chronic bilateral low back pain without sciatica Complicated grieving Depression Encounter for screening colonoscopy Encounter for screening for cardiovascular disorders Essential hypertension Gastroesophageal reflux disease without esophagitis GERD (gastroesophageal reflux disease) Hiatal hernia Hiatal hernia with GERD History of frequent headaches HTN (hypertension) Hypogonadism, male Lower abdominal pain Other chronic pain Vitamin D deficiency Surgical History Surgical History H/O sinus surgery History of cervical spinal arthrodesis History of cholecystectomy History of lumbar spinal fusion History of shoulder surgery History of shoulder surgery History of sinus surgery Status post laparoscopic Quinton fundoplication 10/24/21 Family History Family History Other Cerebrovascular accident Family history of coronary artery disease Hypertension Social History Social History (Updated 06/18/22 @ 09:28 by Melanie Russo PA-C) Social History: Patient drinks 2-3 cups of caffeine weekly. Lives with 2 dogs and 4 cats Smoking status: Never smoker Second hand tobacco smoke exposure: No Alcohol intake: never Drinks per week: 12 Alcohol use details: Patient drinks alcohol rarely. Substance use: never Substance use type: does not use Has the Lack of Transportation Kept You From Medical Appointments or From Getting Medications?: No Within the Past 12 Months, Were You Worried Whether Your Food Would Run Out Before You Got Money to Buy More?: Never True What is Your Housing Situation Today?: I Have Housing Are You Worried That in the Next 2 Months, You May Not Have Your Own Housing to Live In?: No Do You Have Trouble Paying Your Heating Or Electricity Bill?: No Do You Have Trouble Paying For Medicines?: No Are You Currently Unemployed and Looking for Work?: No Highest Level of Education Completed: Associate Degree Do You Have Trouble With Childcare or the Care of a Family Member?: No Living arrangements: with family Additional living arrangements comments: 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
[2022-06-18 09:24] LABS: Toxigenic C. Diff POSITIVE (NEGATIVE)
[2022-06-18 11:33] VITALS: BMI 32.3
[2022-06-18] MEDS: TOPIRAMATE 100 MG TABLET PO (12:03)
--- NOTE | 2022-06-18 12:07 | PCNSR ---
On 06/18/22, the student, Saurav Tapia, provided care and [facility] I have reviewed the student's documentation and agree with the findings.
[2022-06-18 12:09] VITALS: BP 132/83; PULSE 89; RESP 20; O2SAT 97
--- NOTE | 2022-06-18 13:05 | PC.NURSE ---
On 06/18/22, the student, [Jessy Hodges], provided care and completed [facility] documentation on this patient. I have reviewed the student's documentation and agree with the findings.
--- NOTE | 2022-06-18 14:06 | WPDGICN ---
Assessment and Plan Assessment and plan (1) C. difficile colitis: Code(s): A04.72 - Enterocolitis due to Clostridium difficile, not specified as recurrent Status: Acute Assessment and Plan: cause of diarrhea and colitis in CT scan he had recent antibiotic for sinusitis agree with dificid, already feeling better diet as tolerated (2) Pancolitis: Code(s): K51.00 - Ulcerative (chronic) pancolitis without complications Status: Acute Assessment and Plan: c diff colitis no need to repeat colonoscopy (3) Lower abdominal pain: Code(s): R10.30 - Lower abdominal pain, unspecified Status: Acute Assessment and Plan: improving (4) GERD with esophagitis: Code(s): K21.00 - Gastro-esophageal reflux disease with esophagitis, without bleeding Status: Acute Assessment and Plan: treated with surgery, this is better (5) Diarrhea: Code(s): R19.7 - Diarrhea, unspecified Status: Acute (6) Bladder retention of urine: Code(s): R33.9 - Retention of urine, unspecified Status: Acute Assessment and Plan: recommend him to follow-up with urology GI Consult Note Consult date/time: 06/18/22 14:06 Reason for consult: diarrhea HPI: Houston Bowers is a 52 year old male who is my clinic patient, I performed EGD 01/2022 and found to have hiatal hernia with some improvement of erosive esophagitis while using ppi but finally underwent surgery with improvement of chest discomfort and gerd but has been experiencing diarrhea since, also noted bladder retention. He came here with persistent diarrhea every hour and feeling dehydrated and tired along with fever up to 101.5, also had lower abdominal cramping.? Patient has had recent antibiotic use, Augmentin, for treatment of sinusitis on 06/01/22.? Colonoscopy 2019 with small polyp, no colitis. C diff positive and just started on dificid. Review of Systems Constitutional: Constitutional: Denies body ache(s), Reports chills and Reports fatigue Eyes: Eyes: Denies blurry vision ENT: Reports dysphagia and Reports nasal congestion Cardiovascular: Cardiovascular: Denies palpitations Respiratory: Respiratory: Denies chest congestion, Denies cough and Denies dyspnea Gastrointestinal: Gastrointestinal: Reports abdominal pain, Denies melena, Denies hematochezia, Denies constipation, Reports diarrhea, Reports nausea, Denies vomiting and Denies hematemesis Genitourinary: Genitourinary: Reports dysuria Musculoskeletal: Musculoskeletal: Denies back pain Integumentary/Breasts: Skin/Breast: Denies rash Neurologic: Denies Abnormal speech present Psychiatric: Psychiatric: Denies behavioral changes [facility] Past Medical History Medical History (Updated 06/18/22 @ 14:12 by David Victoria MD) Abnormal CT scan Acute non-recurrent maxillary sinusitis Anxiety Bladder retention of urine BMI 38.0-38.9,adult Cervical pain Chronic bilateral low back pain without sciatica Complicated grieving Depression Encounter for screening colonoscopy Encounter for screening for cardiovascular disorders Essential hypertension Gastroesophageal reflux disease without esophagitis GERD (gastroesophageal reflux disease) Hiatal hernia Hiatal hernia with GERD History of frequent headaches HTN (hypertension) Hypogonadism, male Lower abdominal pain Other chronic pain Vitamin D deficiency Surgical History Surgical History H/O sinus surgery History of cervical spinal arthrodesis History of cholecystectomy History of lumbar spinal fusion History of shoulder surgery History of shoulder surgery History of sinus surgery Status post laparoscopic Quinton fundoplication 10/24/21 Family History Family History Other Cerebrovascular accident Family history of coronary artery disease Hypertension S
[2022-06-18 14:33] VITALS: BP 142/87; PULSE 99; RESP 14; TEMP 36.4; O2SAT 97
[2022-06-18 16:10] VITALS: BP 132/78; PULSE 84; RESP 16; TEMP 36.3; O2SAT 97
--- NOTE | 2022-06-18 17:18 | PC.NURSE ---
Spoke with patient about having family member bring home medication Viibryd, as it is non-formulary. Patient states he will try to have son or bring it tonight or tomorrow
[2022-06-18] MEDS: VANCOMYCIN ORAL 125 MG/2.5 ML SYRUP PO (17:24)
[2022-06-18 20:00] VITALS: BP 140/82; PULSE 83; RESP 16; TEMP 36.8; O2SAT 97
[2022-06-19] MEDS: LACTATED RINGERS 1,000 ML 125 ML IV CONT ×2 (00:32→08:04)
[2022-06-19] MEDS: VANCOMYCIN ORAL 125 MG/2.5 ML SYRUP PO ×2 (00:32→06:25)
[2022-06-19 06:00] VITALS: BP 129/80; PULSE 71; RESP 20; TEMP 36.6; O2SAT 98
[2022-06-19 06:04] LABS: Alanine Aminotransferase 370 U/L (6-50); Albumin Level 3.4 g/dL (3.5-5.1); Alkaline Phosphatase 192 U/L (38-126); Anion Gap 10 mmol/L (8-16); Aspartate Amino Transferase 115 U/L (17-59); Bilirubin,Total 0.6 mg/dL (0.2-1.3); Blood Urea Nitrogen 11 mg/dL (9-20); Calcium 8.3 mg/dL (8.4-10.2); Carbon Dioxide 22 mmol/L (22-30); Chloride 103 mmol/L (98-107); Estimated CRCL calculation 129 ml/min; Estimated Glomerular Filt Rate > 60; Glucose 102 mg/dL (65-110); Potassium 3.3 mmol/L (3.4-5.0); Sodium 135 mmol/L (137-145)
[2022-06-19 06:07] LABS: Hematocrit 44.4 % (42.0-52.0); Hemoglobin 14.5 g/dL (14.0-18.0); Mean Corpuscular HGB Conc 32.7 g/dl (32-36); Mean Corpuscular Hemoglobin 29.2 pg (26-34); Mean Corpuscular Volume 89.3 fl (80-100); Mean Platelet Volume 9.7 fl (7.4-10.4); Platelet Count Result 255 k/mm3 (150-375); Red Blood Count 4.97 M/mm3 (4.6-6.20); Red Cell Distribution Width 12.2 % (11.5-14.5); White Blood Count 11.5 K/mm3 (4.5-10.0)
[2022-06-19] MEDS: BACLOFEN 10 MG TABLET BY MOUTH (06:38)
[2022-06-19] MEDS: ACETAMINOPHEN 325 MG TABLET 650 MG PO (06:38)
[2022-06-19 07:32] LABS: Band Neutrophils Percent 8 % (0-6); Eosinophils Absolute Manual 0.34 K/mm3 (0.02-0.5); Eosinophils Percent Manual 3 % (0-4); Lymphocytes Absolute Manual 1.95 K/mm3 (1.1-4.5); Monocytes Absolute Manual 1.03 K/mm3 (0.1-0.90); Monocytes Percent Manual 9 % (3-9); Neutrophils Absolute Manual 8.16 K/mm3 (1.3-6.7); Neutrophils Percent Manual 63 % (46-73); Total Cells Counted 100
[2022-06-19 07:33] LABS: Platelet Estimate Adequate (Adequate); Schistocytes None Seen (NORMAL)
[2022-06-19] MEDS: TOPIRAMATE 100 MG TABLET PO (08:02)
[2022-06-19] MEDS: ENOXAPARIN 40 MG/0.4 ML SYRINGE SUB-Q (08:02)
--- NOTE | 2022-06-19 08:09 | PM.DS ---
DS: Admitting Diagnosis Discharge Date 06/19/22 Admitting Diagnosis C. Diff DS: Discharge Diagnosis Discharge Diagnosis (1) C. difficile colitis: Code(s): A04.72 - Enterocolitis due to Clostridium difficile, not specified as recurrent Status: Acute Assessment and Plan: (2) Pancolitis: Code(s): K51.00 - Ulcerative (chronic) pancolitis without complications Status: Acute Assessment and Plan: (3) Diarrhea: Code(s): R19.7 - Diarrhea, unspecified Status: Acute (4) Nausea: Code(s): R11.0 - Nausea Status: Acute (5) Abnormal liver enzymes: Code(s): R74.8 - Abnormal levels of other serum enzymes Status: Acute (6) BPH (benign prostatic hyperplasia): Code(s): N40.0 - Benign prostatic hyperplasia without lower urinary tract symptoms Status: Acute Assessment and Plan: Patient stated that he has been having difficulty initiating urination for several months Denies burning and pain Nocturia present Tamsulosin 0.4 mg qd prescribed Follow up with PCP (7) Migraine: Code(s): G43.909 - Migraine, unspecified, not intractable, without status migrainosus Status: Acute Assessment and Plan: continue home medications (8) Status post Quinton fundoplication: Code(s): Z98.890 - Other specified postprocedural states Status: Acute Plan Patient arrived to [facility] early this morning due to diarrhea of unknown origin. CT revealed patient has pancolitis with differential of C. diff, viral, bacterial or inflammatory origin. ER Labs showed elevated WBC of 16.2 with left shift, low sodium, low potassium and low chloride. Electrolyte abnormalities could possibly indicate dehydration. Patient has AST of 979, ALT of 841 and Alk Phos of 236 and a negative Hepatitis panel. RUQ US concluded that patient has diffuse hepatic steatosis. GI has been consulted. Patient was initially treated with Zosyn, Flagyl and Vancomycin. For symptoms he was given Zofran, Morphine injection and LR. Patient was put on NPO. Initial labs: blood culture, cryptosporidium antigen, Giardia EIA, and stool culture. Patient is feeling much better after fluids and is awaiting lab results. Patients labs returned with a positive C. difficile serology. All initial antibiotics were discontinued and patient was put on vancomycin 125 mg PO Q6hr. Patient changed to bland diet. On final day patient is feeling much better and ready to be sent home. All labs are trending towards normal values. DS: Summary Hospital Course Reason for hospitalization: C. Difficile Hospital Course: Patient arrived to [facility] early this morning due to diarrhea of unknown origin. CT revealed patient has pancolitis with differential of C. diff, viral, bacterial or inflammatory origin. ER Labs showed elevated WBC of 16.2 with left shift, low sodium, low potassium and low chloride. Electrolyte abnormalities could possibly indicate dehydration. Patient has AST of 979, ALT of 841 and Alk Phos of 236 and a negative Hepatitis panel. RUQ US concluded that patient has diffuse hepatic steatosis. GI has been consulted and recommending follow up in 4 weeks. Patient was initially treated with Zosyn, Flagyl and Vancomycin. For symptoms he was given Zofran, Morphine injection and LR. Patient was put on NPO. Initial labs: blood culture, cryptosporidium antigen, Giardia EIA, and stool culture. Patient is feeling much better after fluids and is awaiting lab results. Patients labs returned with a positive C. difficile serology. All initial antibiotics were discontinued and patient was put on vancomycin 125 mg PO Q6hr. Patient changed to bland diet. 06/19/22 Patient is tolerating food and fluids. Patient states he is feeling better and ready to go home. Liver enzymes are trending down and labs are stable. Patient has been prescribed tamsulosin 0.4 mg qd due to difficulty in
[2022-06-19] MEDS: TAMSULOSIN HCL 0.4 MG CAPSULE PO (09:05)
--- NOTE | 2022-06-19 10:00 | WPDGIPROGNO ---
Progress Note: A&P Assessment and Plan (1) C. difficile colitis: Code(s): A04.72 - Enterocolitis due to Clostridium difficile, not specified as recurrent Status: Acute Assessment and Plan: on treatment and already doing better he can go home and complete treatment as outpatient follow-up office in 4-6 weeks (2) Lower abdominal pain: Code(s): R10.30 - Lower abdominal pain, unspecified Status: Acute Assessment and Plan: almost gone (3) Diarrhea: Code(s): R19.7 - Diarrhea, unspecified Status: Acute Assessment and Plan: improving (4) GERD with esophagitis: Code(s): K21.00 - Gastro-esophageal reflux disease with esophagitis, without bleeding Status: Acute Subjective Date/time seen: 06/19/22 10:00 Interval history: he is doing much better, less diarrhea and tolerating diet Review of Systems Review of Systems: All systems reviewed & are unremarkable except as noted in HPI and below Exam Const: General: comfortable and no acute distress HENMT: Face/Nose/Sinus: Normal nares present Eyes: General: appearance normal, both eyes and all related structures Neck: Neck: no JVD Resp: Auscultation: clear to auscultation bilaterally Cardio: Rate: regular rate Rhythm: regular rhythm GI: Inspection: non-distended GI Palp: Yes Soft to palpation and No Tenderness to palpation present (GI) Auscultation: normal bowel sounds Skin: General skin exam: normal color Neuro: General: gait normal Speech: normal speech Extrem: General: normal to inspection Psych: Mental Status: mental status grossly normal Objective Data Vital Signs Vital Signs: Vital Signs - 24 hr 06/18/22 12:09 06/18/22 14:33 06/18/22 16:10 Temperature 97.6 F 97.4 F L Pulse Rate 89 99 84 Respiratory Rate 20 14 16 Blood Pressure 132/83 142/87 H 132/78 Pulse Oximetry 97 97 97 Oxygen Delivery 06/18/22 20:00 06/19/22 06:00 06/19/22 08:00 Temperature 98.2 F 97.8 F Pulse Rate 83 71 Respiratory Rate 16 20 Blood Pressure 140/82 129/80 Pulse Oximetry 97 98 Oxygen Delivery Room Air 06/19/22 10:00 Temperature Pulse Rate Respiratory Rate Blood Pressure Pulse Oximetry Oxygen Delivery Room Air Intake/Output Intake/Output: Intake & Output 10/31/22 11/01/22 11/02/22 11/03/22 23:59 23:59 23:59 23:59 Intake Total 4740 1390 Output Total 1075 900 Balance 3665 490 Meds/Results Radiology Results: ITS Impressions Chest X-Ray 06/17/22 21:15 IMPRESSION: No acute cardiopulmonary process. Abdomen/Pelvis CT 06/18/22 07:08 IMPRESSION: 1. Pancolitis. Upper Quadrant Ultrasound 06/18/22 08:33 IMPRESSION: 1. Diffuse hepatic steatosis. Labs Labs: Laboratory Results - last 24 hr 06/19/22 06/19/22 05:45 05:45 WBC 11.5 H RBC 4.97 Hgb 14.5 Hct 44.4 MCV 89.3 MCH 29.2 MCHC 32.7 RDW 12.2 Plt Count 255 MPV 9.7 Immature Gran % (Auto) Not Reportable Neut % (Auto) Not Reportable Lymph % (Auto) Not Reportable [place] % (Auto) Not Reportable Eos % (Auto) Not Reportable Baso % (Auto) Not Reportable Lymph # (Auto) Not Reportable [place] # (Auto) Not Reportable Eos # (Auto) Not Reportable Baso # (Auto) Not Reportable Abs Immat Gran (auto) Not Reportable Absolute Neuts (auto) Not Reportable Absolute Nucleated RBC Not Reportable Total Counted 100 Neutrophils % (Manual) 63 Band Neutrophils % 8 H Lymphocytes % (Manual) 17.0 L Monocytes % (Manual) 9 Eosinophils % (Manual) 3 Nucleated RBC % Not Reportable Abs Neuts (Manual) 8.16 H Abs Lymphs (Manual) 1.95 Abs Monocytes (Manual) 1.03 H Absolute Eos (Manual) 0.34 Platelet Estimate Adequate Schistocytes None seen Sodium 135 L Potassium 3.3 L Chloride 103 Carbon Dioxide 22 Anion Gap 10 BUN 11 D Creatinine 0.70 Estim Creat Clear Calc 129 Estimated GFR > 60 Glucose 102 Calci
== END 2022-06-19 10:50 | disposition home or self-care (01) ==
LOC: ANHED 06-18 04:46 → ANH2MED 06-18 05:34
PROVIDERS: Emergency Medicine; Admitting Provider Internal Medicine; Emergency Provider Nurse Practitioner Family; PCP Emergency Medicine; Visit Provider Internal Medicine Critical Care Medicine
DX: A04.72 Enterocolitis due to Clostridium difficile, not specified as recurrent (principal); R74.8 Abnormal levels of other serum enzymes; N40.0 Benign prostatic hyperplasia without lower urinary tract symptoms; G43.909 Migraine, unspecified, not intractable, without status migrainosus; Z98.890 Other specified postprocedural states; K21.9 Gastro-esophageal reflux disease without esophagitis; R33.9 Retention of urine, unspecified; K76.0 Fatty (change of) liver, not elsewhere classified; F41.9 Anxiety disorder, unspecified; F32.A Depression, unspecified; I10 Essential (primary) hypertension; R94.31 Abnormal electrocardiogram [ECG] [EKG]; M54.50 Low back pain, unspecified; E23.0 Hypopituitarism; Z20.822 Contact with and (suspected) exposure to COVID-19; F10.90 Alcohol use, unspecified, uncomplicated; Z98.1 Arthrodesis status; Z90.49 Acquired absence of other specified parts of digestive tract; Z79.1 Long term (current) use of non-steroidal anti-inflammatories (NSAID); Z79.899 Other long term (current) drug therapy; Z82.3 Family history of stroke; Z82.49 Family history of ischemic heart disease and other diseases of the circulatory system
CPT/HCPCS: 36415; 71046; 74177; 76705; 80053; 80074; 81001; 83605; 83690; 83735; 85025; 87040; 87045; 87177; 87209; 87269; 87272; 87427; 87493; 89055; 93005; 96361; 96365; 96372; 96375; 96376; 99285; A9270; G0378; J1650; J2405; J2543; J7030; J7120; Q9967; U0003; U0005

== ENCOUNTER 2022-07-18 11:59 | Inpatient (IN) | payer BC, SELFPAY ==
--- NOTE | ~2022-07-18 | XR_ITS ---
EXAMINATION: XR chest 1V portable DATE: 07/21/2022 10:52 INDICATION: Cough and congestion TECHNIQUE: frontal view of the chest was obtained. COMPARISON: Chest radiograph dated 06/17/2022 FINDINGS: The lungs remain clear with no focal airspace opacities, pulmonary edema, pleural effusion or pneumot horax. The cardiomediastinal silhouette is normal. Cholecystectomy clips in right upper quadrant. IMPRESSION: 1. No acute cardiopulmonary disease. Reviewed, dictated and finalized at location A. [employer] ADVISOR
--- NOTE | ~2022-07-18 | CT_ITS ---
EXAMINATION: CT abdomen pelvis w con DATE: 07/18/2022 14:52 INDICATION: Diffuse abdominal pain. History of pancolitis. TECHNIQUE: Computed tomography (CT) of the abdomen and pelvis was performed with 100 CC Omnipaque 350 intravenous contrast. Automated exposure control and iterative reconstruction technique were employe d. Exam dose: 875.07 mGy-cm total exam DLP. COMPARISON: 06/18/2022 right upper quadrant abdominal ultrasound 06/18/2022 CT abdomen pelvis FINDINGS: The lung bases are clear. Normal heart size. No pericardial or pleural effusion. Status post fundoplication with wrap above the diaphragm, stable in appearance since 06/18/2022. Diffuse hepatic steatosis. No hepatic space-occupying mass lesion. Status post cholecystectomy. No bile duct or pancreatic duct dilatation. Calcified splenic granuloma splenic size is within normal range. Normal morphology of the adrenal glands. Small lower pole left renal cyst. The kidneys are otherwise unremarkable. No urinary tract calculus o r hydroureteronephrosis. The urinary bladder and prostate gland are unremarkable. Normal caliber of the abdominal aorta. No intraperitoneal or retroperitoneal or pelvic mass lesion or adenopathy or ascites. There is prominent thickening of the wall of the cecum, ascending and transverse colon and splenic fl exure, and lesser thickening of the descending and sigmoid colon. Pancolitis is suspected and might b e of inflammatory, infectious or less likely vascular etiology. No bowel obstruction, pneumatosis or intraperitoneal free air. There is minimal atherosclerotic calcification of the abdominal aorta and inferior mesenteric arterie s are patent. No intraperitoneal or retroperitoneal or pelvic mass lesion or adenopathy or ascites. Status post interbody and interspinous surgical fusion at L5-S1. Moderately prominent anterior wedge compression fracture deformity of L1, likely chronic. IMPRESSION: Persistent pancolitis Reviewed, dictated and finalized at [facility]. Reviewed, dictated and finalized at location B. ANICAL ASSEMBLER IMPRESSION: Persistent pancolitis
[2022-07-18 12:01] VITALS: BP 131/86; PULSE 115; RESP 17; TEMP 36.6; O2SAT 98
--- NOTE | 2022-07-18 13:24 | ED.NAVMDI ---
HPI - Nausea/Vomiting/Diarrhea General Chief complaint: Nausea/Vomiting/Diarrhea <RYLAN Ventura Last Filed: 07/18/22 17:56> Stated complaint: nausea, vomiting, diarrhea. <Tricia Ahumada PA-C - Last Filed: 07/18/22 17:56> Time Seen by Provider: 07/18/22 12:36 <RYLAN Ventura Last Filed: 07/18/22 17:56> History of Present Illness HPI Narrative: Patient is a 52-year-old male here for evaluation of nausea and dry heaving over the past week. Patient states that he has had decreased p.o. intake because he developed some abdominal pain after eating as he is afraid to vomit. Abdominal pain is lower in nature and crampy. He was hospitalized here for several days last month for C. difficile colitis, he completed his antibiotics 2 weeks ago with improvement of his diarrhea. No fevers, chills, blood in stool. <Tricia Ahumada PA-C - Last Filed: 07/18/22 17:56> Related Data Home medications: Home Medications Medication Instructions Recorded Confirmed glucosamine sulfate dipotassium Cl 1 cap PO HS 10/18/21 06/18/22 500 mg-chondroitin 400 mg capsule (Glucosamine Sulfate 2 KCL-Chondroitin) rizatriptan 10 mg tablet 10 mg PO PRN PRN Migraine Headache 10/18/21 06/18/22 ibuprofen 200 mg capsule 200 mg PO Q6H PRN Pain 11/07/21 06/18/22 acetaminophen 650 mg 650 mg PO PRN PRN Pain (Scale 02/10/22 06/18/22 tablet,extended release (Tylenol 8 Score 1-3) Hour) vilazodone 40 mg tablet (Viibryd) 40 tablet PO DAILY 02/10/22 06/18/22 alprazolam 0.5 mg tablet 0.5 mg PO TID PRN Anxiety 06/01/22 06/18/22 <RYLAN Ventura Last Filed: 07/18/22 17:56> Allergies/Adverse reactions: Allergies Allergy/AdvReac Type Severity Reaction Status Date / Time No Known Allergies Allergy Verified 07/18/22 11:59 <Tricia Ahumada PA-C - Last Filed: 07/18/22 17:56> Review of Systems Review of Systems: Gen.: Denies fevers or chills Eyes: Denies eye pain or visual change ENT: Denies congestion Respiratory: Denies shortness of breath or cough CV: Denies chest pain or palpitations GI: Reports abdominal pain, nausea. denies burning, urgency, frequency or hematuria Musculoskeletal: Denies back pain or muscle pain Neuro: Denies numbness, tingling, weakness or focal weakness Skin: Denies rash Except as documented, all other systems reviewed and negative <RYLAN Ventura Last Filed: 07/18/22 17:56> [facility] Past Medical History Medical History: Medical History Abnormal CT scan Acute non-recurrent maxillary sinusitis Anxiety Bladder retention of urine BMI 38.0-38.9,adult Cervical pain Chronic bilateral low back pain without sciatica Complicated grieving Depression Encounter for screening colonoscopy Encounter for screening for cardiovascular disorders Essential hypertension Gastroesophageal reflux disease without esophagitis GERD (gastroesophageal reflux disease) Hiatal hernia Hiatal hernia with GERD History of frequent headaches HTN (hypertension) Hypogonadism, male Lower abdominal pain Other chronic pain Vitamin D deficiency <Tricia Ahumada PA-C - Last Filed: 07/18/22 17:56> Surgical History Surgical History: Surgical History H/O sinus surgery History of cervical spinal arthrodesis History of cholecystectomy History of lumbar spinal fusion History of shoulder surgery History of shoulder surgery History of sinus surgery Status post laparoscopic [place] fundoplication 10/24/21 <Tricia Ahumada PA-C - Last Filed: 07/18/22 17:56> Family History Family History: Family History Other Cerebrovascular accident Family history of coronary artery disease Hypertension <RYLAN Ventura Last Filed: 07/18/22 17:56> Social H
[2022-07-18 13:26] LABS: Basophils Absolute Auto 0.1 K/mm3 (0.0-0.1); Basophils Percent Auto 0.4 % (0.2-1.2); Eosinophils Percent Auto 0.3 % (0-4.4); Hematocrit 44.3 % (42.0-52.0); Hemoglobin 14.9 g/dL (14.0-18.0); Immature Granulocyte Absolute 0.19 K/mm3 (0.00-0.031); Immature Granulocyte Percent A 1.2 % (0-0.5); Lymphocytes Absolute Auto 2.01 K/mm3 (0.9-3.2); Lymphocytes Percent Auto 12.9 % (18.3-44.2); Mean Corpuscular HGB Conc 33.6 g/dl (32-36); Mean Corpuscular Hemoglobin 29.6 pg (26-34); Mean Corpuscular Volume 87.9 fl (80-100); Mean Platelet Volume 9.8 fl (7.4-10.4); Monocytes Absolute Auto 1.4 K/mm3 (0.1-0.6); Monocytes Percent Auto 8.8 % (2.6-8.5); Neutrophils Absolute Auto 11.9 K/mm3 (1.3-6.7); Neutrophils Percent Auto 76.4 % (45.5-73.1); Platelet Count Result 286 k/mm3 (150-375); Red Blood Count 5.04 M/mm3 (4.6-6.20); Red Cell Distribution Width 12.7 % (11.5-14.5); White Blood Count 15.6 K/mm3 (4.5-10.0)
[2022-07-18] MEDS: ONDANSETRON INJ 4 MG/2 ML VIAL IV PUSH (13:31)
[2022-07-18] MEDS: LACTATED RINGERS 1,000 ML 999 ML IV CONT ×2 (13:31→15:50)
[2022-07-18 14:31] LABS: Alanine Aminotransferase 220 U/L (6-50); Albumin Level 4.2 g/dL (3.5-5.1); Alkaline Phosphatase 250 U/L (38-126); Anion Gap 15 mmol/L (8-16); Aspartate Amino Transferase 82 U/L (17-59); Bilirubin,Total 1.3 mg/dL (0.2-1.3); Blood Urea Nitrogen 13 mg/dL (9-20); Calcium 8.9 mg/dL (8.4-10.2); Carbon Dioxide 22 mmol/L (22-30); Chloride 97 mmol/L (98-107); Estimated CRCL calculation 127 ml/min; Estimated Glomerular Filt Rate > 60; Glucose 98 mg/dL (65-110); Lipase 37 U/L (23-300); Potassium 3.7 mmol/L (3.4-5.0); Sodium 134 mmol/L (137-145)
[2022-07-18] MEDS: FAMOTIDINE 20 MG/2 ML VIAL IV PUSH (15:14)
[2022-07-18] MEDS: diphenhydrAMINE HCl INJ 50 MG/ML VIAL 12.5 MG IV PUSH (16:07)
[2022-07-18] MEDS: METOCLOPRAMIDE HCL INJ 10 MG/2 ML VIAL IV PUSH (16:07)
[2022-07-18] MEDS: metroNIDAZOLE 500 MG/ISO 100ML 500 MG/100 ML BAG 100 MG IVPB (16:50)
[2022-07-18 17:15] LABS: Influenza A QL RT-PCR Negative (Negative); Influenza B QL RT-PCR Negative (Negative); SARS-CoV-2 RNA PCR Negative
[2022-07-18] MEDS: VANCOMYCIN ORAL 125 MG/2.5 ML SYRUP PO (17:17)
--- NOTE | 2022-07-18 17:31 | PM.IMHP ---
H&P: HPI History of Present Illness Date/Time: 07/18/22 17:31 Chief Complaint: Nausea vomiting diarrhea Narrative: This is a 52-year-old male patient who had a sinus infection and was on Augmentin. The patient developed C difficile I will and was discharged from this facility on 06/19/2022. The patient stated that he took the home oral dosage of antibiotics for 14 days. He stated that the diarrhea slowed down but he still continues to have loose stools. The patient stated that he has been having dry heaving for the past week. The patient recently had a hiatal hernia repair and is afraid to vomit due to that recent surgery. White count is 15.6. Neutrophils 76.4. AST is 82 which is down from last month and ALT is 220 down from last month alkaline phosphatase is 250 which is up from last month. He was negative for influenza A/B and COVID. Stool cultures have been ordered. The patient was started on IV fluids, Zofran, Pepcid, Benadryl, Flagyl and vancomycin. CT of the abdomen was read as persisted knapp colitis. The patient is being admitted to observation status on the date of service of 07/18/2022. Review of Systems Review of Systems: See HPI All systems reviewed & are unremarkable except as noted in HPI and below Constitutional: Constitutional: Reports as per HPI and Reports no additional constitutional complaints Eyes: Eyes: Reports as per HPI and Reports no additional eye complaints ENT: Reports system reviewed and no additional complaints, except as documented and Reports Normal hearing present Cardiovascular: Cardiovascular: Reports no additional cardiovascular complaints Respiratory: Respiratory: Reports no additional respiratory complaints and Reports no additional respiratory complaints Gastrointestinal: Gastrointestinal: Reports as per HPI and Reports no additional gastrointestinal complaints Musculoskeletal: Musculoskeletal: Reports no additional musculoskeletal complaints Integumentary/Breasts: Skin/Breast: Reports system reviewed and no additional complaints, except as docu and Reports as per HPI Neurologic: Reports system reviewed and no additional complaints, except as documented, Reports as per HPI and Reports Normal hearing present Psychiatric: Psychiatric: Reports no additional psychiatric complaints and Reports as per HPI Endocrine: Endocrine: Reports no additional endocrine complaints Hematologic/Lymphatic: Hematologic/Lymphatic: Reports no additional hematologic/lymphatic complaints Allergic/Immunologic: Allergic/Immunologic: Reports no additional allergic/immunologic complaints [facility] Past Medical History Medical History (Updated 07/18/22 @ 20:34 by Sadie Lux NP) Abnormal CT scan Acute non-recurrent maxillary sinusitis Anxiety Bladder retention of urine BMI 38.0-38.9,adult Cervical pain Chronic bilateral low back pain without sciatica Complicated grieving COVID-19 Depression Encounter for screening colonoscopy Encounter for screening for cardiovascular disorders Essential hypertension Gastroesophageal reflux disease without esophagitis GERD (gastroesophageal reflux disease) Hiatal hernia Hiatal hernia with GERD History of frequent headaches HTN (hypertension) Hypogonadism, male Lower abdominal pain Other chronic pain Vitamin D deficiency Surgical History Surgical History H/O sinus surgery History of cervical spinal arthrodesis History of cholecystectomy History of lumbar spinal fusion History of shoulder surgery History of shoulder surgery History of sinus surgery Status post laparoscopic [place] fundoplication 10/24/21 Family History Family History Other Cerebrovascular accident Family history of coronary artery disease Hypertension Social History Social History (Updated 07/18/22 @ 20:29 by Sadie Lux NP) Social History: The patient works for [employer]
--- NOTE | 2022-07-18 20:08 | ADMGEN ---
This patient, Houston Bowers, was admitted to Medical Room 253-01. Patient/family oriented to hospital policies and general routines including ID bracelet, bed and alarms, visiting hours, pain management, procedures, bathroom and other care routines, personal items, smoking policy, room service/diet, and visiting hours. Information on how to activate the Rapid Response Team has been discussed. Patient/Family are encouraged to report perceived risks to care and to ask questions if they do not understand what they are told or what they should do.
[2022-07-18 21:17] VITALS: BP 158/85; PULSE 98; RESP 20; TEMP 37.1; O2SAT 98
[2022-07-18 21:21] VITALS: BMI 32.1
[2022-07-18 21:45] LABS: Toxigenic C. Diff POSITIVE (NEGATIVE)
[2022-07-18] MEDS: FIDAXOMICIN 200 MG TABLET PO (22:02)
[2022-07-18] MEDS: SODIUM CHLORIDE 0.9% IV 1,000 ML 125 ML IV CONT (22:03)
[2022-07-19] VITALS (7 sets, daily range): BP systolic 119–154; BP diastolic 74–86; PULSE 87–98; RESP 18–20; TEMP 36.3–37.5; O2SAT 96–100
[2022-07-19] MEDS: SODIUM CHLORIDE 0.9% IV 1,000 ML 125 ML IV CONT ×3 (06:10→23:00)
[2022-07-19 06:18] LABS: Basophils Absolute Auto 0.1 K/mm3 (0.0-0.1); Basophils Percent Auto 0.6 % (0.2-1.2); Eosinophils Absolute Auto 0.2 K/mm3 (0-0.3); Eosinophils Percent Auto 1.7 % (0-4.4); Hematocrit 38.9 % (42.0-52.0); Hemoglobin 12.8 g/dL (14.0-18.0); Immature Granulocyte Absolute 0.28 K/mm3 (0.00-0.031); Immature Granulocyte Percent A 2.2 % (0-0.5); Lymphocytes Percent Auto 16.1 % (18.3-44.2); Mean Corpuscular HGB Conc 32.9 g/dl (32-36); Mean Corpuscular Hemoglobin 29.6 pg (26-34); Mean Platelet Volume 9.1 fl (7.4-10.4); Monocytes Absolute Auto 1.3 K/mm3 (0.1-0.6); Monocytes Percent Auto 10.8 % (2.6-8.5); Neutrophils Absolute Auto 8.6 K/mm3 (1.3-6.7); Neutrophils Percent Auto 68.6 % (45.5-73.1); Platelet Count Result 272 k/mm3 (150-375); Red Blood Count 4.32 M/mm3 (4.6-6.20); Red Cell Distribution Width 12.7 % (11.5-14.5); White Blood Count 12.5 K/mm3 (4.5-10.0)
[2022-07-19 06:26] LABS: Alanine Aminotransferase 146 U/L (6-50); Albumin Level 3.4 g/dL (3.5-5.1); Alkaline Phosphatase 180 U/L (38-126); Anion Gap 11 mmol/L (8-16); Aspartate Amino Transferase 37 U/L (17-59); Bilirubin,Total 0.8 mg/dL (0.2-1.3); Blood Urea Nitrogen 10 mg/dL (9-20); Carbon Dioxide 23 mmol/L (22-30); Chloride 103 mmol/L (98-107); Estimated CRCL calculation 129 ml/min; Estimated Glomerular Filt Rate > 60; Glucose 87 mg/dL (65-110); Lactate Dehydrogenase 140 U/L (120-246); Lipase 33 U/L (23-300); Magnesium 1.9 mg/dL (1.6-2.3); Potassium 3.9 mmol/L (3.4-5.0); Sodium 137 mmol/L (137-145)
[2022-07-19] MEDS: TOPIRAMATE 100 MG TABLET PO (08:37)
[2022-07-19] MEDS: TAMSULOSIN HCL 0.4 MG CAPSULE PO (08:37)
[2022-07-19] MEDS: FIDAXOMICIN 200 MG TABLET PO ×2 (08:37→21:23)
[2022-07-19] MEDS: ACIDOPHILUS/BULGARICUS CHEWABLE TABLET 1 TABLET PO (08:37)
--- NOTE | 2022-07-19 11:00 | PM.IMPN ---
Progress Note: A&P Assessment and Plan (1) Pancolitis: Code(s): K51.00 - Ulcerative (chronic) pancolitis without complications Status: Acute Assessment and Plan: -waiting stool cultures -the patient was given Flagyl and oral vancomycin in the emergency room. -Continue Dificid, add Flagyl -consulted Infectious Disease pharmacist. -his white count is trending down, currently 12.5. (2) C. difficile colitis: Code(s): A04.72 - Enterocolitis due to Clostridium difficile, not specified as recurrent Status: Acute Assessment and Plan: C.diff is positive again Just completed course of vancomycin Started patient on Dificid WBC seems to be responding GI consulted Should probably consider a fecal transplant (3) BPH (benign prostatic hyperplasia): Code(s): N40.0 - Benign prostatic hyperplasia without lower urinary tract symptoms Status: Acute Assessment and Plan: -continue with tamsulosin (4) Abnormal liver enzymes: Code(s): R74.8 - Abnormal levels of other serum enzymes Status: Acute Assessment and Plan: -patient had upper quadrant ultrasound on 06/18/2022 which was read as diffuse hepatic steatosis -AST/ALT 146/180 -Hep panel in the am (5) Migraine: Code(s): G43.909 - Migraine, unspecified, not intractable, without status migrainosus Status: Acute Assessment and Plan: -continue with ibuprofen, rezatriptan, and topiramate (6) Anxiety: Code(s): F41.9 - Anxiety disorder, unspecified Status: Acute Assessment and Plan: -continue with alprazolam (7) Depression: Code(s): F32.9 - Major depressive disorder, single episode, unspecified Status: Acute Assessment and Plan: Continue with viibyrd may use his own if it is non formulary. Time Spent With Patient Time with patient: Greater than 35 minutes Subjective Date/time seen: 07/19/22 1100 Interval history: 07/19/22 1100 Patient stated that he is feeling a bit better. He did state that he was taking his medications as prescribed. He denies having multiple bowel movements today. He did state that he was feeling ok and did even advance his diet and even had a cheeseburger. Since then the diarrhea has been progressively getting worse. He denies any chest pain, shortness of breath, nausea, vomiting, weakness, or fatigue. Will get GI involved. 07/18/22? 17:31 This is a 52-year-old male patient who had a sinus infection and was on Augmentin.? The patient developed C difficile I will and was discharged from this facility on 06/19/2022.? The patient stated that he took the home oral dosage of antibiotics for 14 days.? He stated that the diarrhea slowed down but he still continues to have loose stools.? The patient stated that he has been having dry heaving for the past week.? The patient recently had a hiatal hernia repair and is afraid to vomit due to that recent surgery.? White count is 15.6.? Neutrophils 76.4.? AST is 82 which is down from last month and ALT is 220 down from last month alkaline phosphatase is 250 which is up from last month.? He was negative for influenza A/B and COVID.? Stool cultures have been ordered.? The patient was started on IV fluids, Zofran, Pepcid, Benadryl, Flagyl and vancomycin.? CT of the abdomen was read as persisted knapp colitis.? The patient is being admitted to observation status on the date of service of 07/18/2022. Review of Systems Review of Systems: All systems reviewed & are unremarkable except as noted in HPI and below Exam Narrative: General: well-nourished, well-appearing 52-year-old male, sitting up in bed, comfortable, NARD Neuro: awake, alert and oriented x4, speech clear, no focal neuro deficits noted HEENMT: normocephalic, atraumatic, EOMI, sclerae anicteric,
[2022-07-19] MEDS: BACLOFEN 10 MG TABLET 20 MG PO (17:19)
[2022-07-19] MEDS: ACETAMINOPHEN 325 MG TABLET 650 MG PO (17:19)
[2022-07-19] MEDS: ALPRAZolam (*CRX) 0.5 MG TABLET PO (23:18)
[2022-07-20] MEDS: ACETAMINOPHEN 325 MG TABLET 650 MG PO ×2 (01:28→18:24)
[2022-07-20 04:03] VITALS: BP 135/75; PULSE 85; RESP 17; TEMP 36.6; O2SAT 99
[2022-07-20] MEDS: SODIUM CHLORIDE 0.9% IV 1,000 ML 125 ML IV CONT (06:26)
[2022-07-20] MEDS: TOPIRAMATE 100 MG TABLET PO (10:05)
[2022-07-20] MEDS: FIDAXOMICIN 200 MG TABLET PO ×2 (10:05→21:07)
[2022-07-20] MEDS: TAMSULOSIN HCL 0.4 MG CAPSULE PO (10:05)
[2022-07-20] MEDS: ACIDOPHILUS/BULGARICUS CHEWABLE TABLET 1 TABLET PO (10:05)
--- NOTE | 2022-07-20 11:30 | PM.IMPN ---
Progress Note: A&P Assessment and Plan (1) Pancolitis: Code(s): K51.00 - Ulcerative (chronic) pancolitis without complications Status: Acute Assessment and Plan: -waiting stool cultures -the patient was given Flagyl and oral vancomycin in the emergency room. -Continue Dificid, add Flagyl -consulted Infectious Disease pharmacist. -his white count is trending down, currently 12.5 (2) C. difficile colitis: Code(s): A04.72 - Enterocolitis due to Clostridium difficile, not specified as recurrent Status: Acute Assessment and Plan: C.diff is positive again Just completed course of vancomycin Started patient on Dificid WBC seems to be responding GI consulted Should probably consider a fecal transplant (3) BPH (benign prostatic hyperplasia): Code(s): N40.0 - Benign prostatic hyperplasia without lower urinary tract symptoms Status: Acute Assessment and Plan: -continue with tamsulosin (4) Abnormal liver enzymes: Code(s): R74.8 - Abnormal levels of other serum enzymes Status: Acute Assessment and Plan: -patient had upper quadrant ultrasound on 06/18/2022 which was read as diffuse hepatic steatosis -AST/ALT 37/146 -Hep panel negative (5) Migraine: Code(s): G43.909 - Migraine, unspecified, not intractable, without status migrainosus Status: Acute Assessment and Plan: -continue with ibuprofen, rezatriptan, and topiramate (6) Anxiety: Code(s): F41.9 - Anxiety disorder, unspecified Status: Acute Assessment and Plan: -continue with alprazolam (7) Depression: Code(s): F32.9 - Major depressive disorder, single episode, unspecified Status: Acute Assessment and Plan: Continue with viibyrd may use his own if it is non formulary. Time Spent With Patient Time with patient: Greater than 35 minutes Subjective Date/time seen: 07/20/22 1130 Interval history: 07/20/22 1130 Patient stated that he is doing okay. He is having some abdominal pain and some urgency with diarrhea. He denies any chest pain, shortness a breath, nausea, vomiting, constipation. He stated that he would like to increase his diet. 07/19/22 1100 Patient stated that he is feeling a bit better. He did state that he was taking his medications as prescribed. He denies having multiple bowel movements today. He did state that he was feeling ok and did even advance his diet and even had a cheeseburger. Since then the diarrhea has been progressively getting worse. He denies any chest pain, shortness of breath, nausea, vomiting, weakness, or fatigue. Will get GI involved. 07/18/22? 17:31 This is a 52-year-old male patient who had a sinus infection and was on Augmentin.? The patient developed C difficile I will and was discharged from this facility on 06/19/2022.? The patient stated that he took the home oral dosage of antibiotics for 14 days.? He stated that the diarrhea slowed down but he still continues to have loose stools.? The patient stated that he has been having dry heaving for the past week.? The patient recently had a hiatal hernia repair and is afraid to vomit due to that recent surgery.? White count is 15.6.? Neutrophils 76.4.? AST is 82 which is down from last month and ALT is 220 down from last month alkaline phosphatase is 250 which is up from last month.? He was negative for influenza A/B and COVID.? Stool cultures have been ordered.? The patient was started on IV fluids, Zofran, Pepcid, Benadryl, Flagyl and vancomycin.? CT of the abdomen was read as persisted knapp colitis.? The patient is being admitted to observation status on the date of service of 07/18/2022. Review of Systems Review of Systems: All systems reviewed & are unremarkable except as noted in HPI and below Exam Na
[2022-07-20 14:00] VITALS: BP 140/92; PULSE 86; RESP 18; TEMP 36.6; O2SAT 98
[2022-07-20 18:00] VITALS: BP 147/81; PULSE 99; RESP 18; TEMP 36.8; O2SAT 98
[2022-07-20] MEDS: LORATADINE/PSEUDOEPHEDRINE (*CRX) 10/240 MG TABLET ER 24 HR 1 TAB PO (18:11)
[2022-07-20] MEDS: guaiFENesin/DEXTROMETHORPHAN 10 ML UDC 5 ML PO (18:14)
[2022-07-20 20:00] VITALS: BP 146/92; PULSE 87; RESP 17; TEMP 36.8; O2SAT 96
[2022-07-20] MEDS: BACLOFEN 10 MG TABLET 20 MG PO (21:07)
[2022-07-20] MEDS: ALPRAZolam (*CRX) 0.5 MG TABLET PO (21:07)
[2022-07-20 22:00] VITALS: BP 105/63; PULSE 68; RESP 18; TEMP 36.9; O2SAT 98
[2022-07-21] MEDS: guaiFENesin/DEXTROMETHORPHAN 10 ML UDC 5 ML PO ×2 (00:31→04:48)
[2022-07-21 01:53] VITALS: BP 131/80; PULSE 80; RESP 17; TEMP 36.9; O2SAT 97
[2022-07-21] MEDS: ACETAMINOPHEN 325 MG TABLET 650 MG PO (04:52)
[2022-07-21] MEDS: BACLOFEN 10 MG TABLET 20 MG PO (04:52)
[2022-07-21 05:29] VITALS: BP 125/75; PULSE 86; RESP 18; TEMP 37.1; O2SAT 95
[2022-07-21 06:42] LABS: Basophils Absolute Auto 0.1 K/mm3 (0.0-0.1); Basophils Percent Auto 0.9 % (0.2-1.2); Eosinophils Absolute Auto 0.2 K/mm3 (0-0.3); Eosinophils Percent Auto 2.8 % (0-4.4); Hematocrit 39.7 % (42.0-52.0); Hemoglobin 13.4 g/dL (14.0-18.0); Immature Granulocyte Absolute 0.29 K/mm3 (0.00-0.031); Immature Granulocyte Percent A 3.9 % (0-0.5); Lymphocytes Absolute Auto 1.73 K/mm3 (0.9-3.2); Lymphocytes Percent Auto 23.1 % (18.3-44.2); Mean Corpuscular HGB Conc 33.8 g/dl (32-36); Mean Corpuscular Hemoglobin 29.1 pg (26-34); Mean Corpuscular Volume 86.3 fl (80-100); Monocytes Absolute Auto 0.6 K/mm3 (0.1-0.6); Monocytes Percent Auto 8.1 % (2.6-8.5); Neutrophils Absolute Auto 4.6 K/mm3 (1.3-6.7); Neutrophils Percent Auto 61.2 % (45.5-73.1); Platelet Count Result 327 k/mm3 (150-375); Red Cell Distribution Width 12.7 % (11.5-14.5); White Blood Count 7.5 K/mm3 (4.5-10.0)
[2022-07-21 07:04] LABS: Alanine Aminotransferase 76 U/L (6-50); Albumin Level 3.5 g/dL (3.5-5.1); Alkaline Phosphatase 141 U/L (38-126); Anion Gap 9 mmol/L (8-16); Aspartate Amino Transferase 25 U/L (17-59); Bilirubin,Total 0.5 mg/dL (0.2-1.3); Calcium 8.6 mg/dL (8.4-10.2); Carbon Dioxide 23 mmol/L (22-30); Chloride 107 mmol/L (98-107); Estimated CRCL calculation 148 ml/min; Estimated Glomerular Filt Rate > 60; Glucose 101 mg/dL (65-110); Magnesium 1.9 mg/dL (1.6-2.3); Potassium 3.3 mmol/L (3.4-5.0); Sodium 139 mmol/L (137-145)
--- NOTE | 2022-07-21 07:36 | PM.IMPN ---
Progress Note: A&P Assessment and Plan (1) Pancolitis: Code(s): K51.00 - Ulcerative (chronic) pancolitis without complications Status: Acute Assessment and Plan: -waiting stool cultures -the patient was given Flagyl and oral vancomycin in the emergency room. -Continue Dificid, add Flagyl -consulted Infectious Disease pharmacist. -GI consult thank you for your help -his white count is trending down, currently 7.5 (2) C. difficile colitis: Code(s): A04.72 - Enterocolitis due to Clostridium difficile, not specified as recurrent Status: Acute Assessment and Plan: C.diff is positive again Just completed course of vancomycin continue Dificid WBC 7.5 today GI consulted Should probably consider a fecal transplant (3) BPH (benign prostatic hyperplasia): Code(s): N40.0 - Benign prostatic hyperplasia without lower urinary tract symptoms Status: Acute Assessment and Plan: -continue with tamsulosin -Trend urine output (4) Abnormal liver enzymes: Code(s): R74.8 - Abnormal levels of other serum enzymes Status: Acute Assessment and Plan: -patient had upper quadrant ultrasound on 06/18/2022 which was read as diffuse hepatic steatosis -AST/ALT 25/ -Hep panel negative (5) Migraine: Code(s): G43.909 - Migraine, unspecified, not intractable, without status migrainosus Status: Acute Assessment and Plan: -continue with ibuprofen, rezatriptan, and topiramate (6) Anxiety: Code(s): F41.9 - Anxiety disorder, unspecified Status: Acute Assessment and Plan: -continue with alprazolam (7) Depression: Code(s): F32.9 - Major depressive disorder, single episode, unspecified Status: Acute Assessment and Plan: Continue with viibyrd may use his own if it is non formulary. Time Spent With Patient Time with patient: Greater than 35 minutes Subjective Date/time seen: 07/21/22 07:36 Interval history: 07/21/22 07/20/22 1130 Patient stated that he is doing okay. He is having some abdominal pain and some urgency with diarrhea. He denies any chest pain, shortness a breath, nausea, vomiting, constipation. He stated that he would like to increase his diet. 07/19/22 1100 Patient stated that he is feeling a bit better. He did state that he was taking his medications as prescribed. He denies having multiple bowel movements today. He did state that he was feeling ok and did even advance his diet and even had a cheeseburger. Since then the diarrhea has been progressively getting worse. He denies any chest pain, shortness of breath, nausea, vomiting, weakness, or fatigue. Will get GI involved. 07/18/22? 17:31 This is a 52-year-old male patient who had a sinus infection and was on Augmentin.? The patient developed C difficile I will and was discharged from this facility on 06/19/2022.? The patient stated that he took the home oral dosage of antibiotics for 14 days.? He stated that the diarrhea slowed down but he still continues to have loose stools.? The patient stated that he has been having dry heaving for the past week.? The patient recently had a hiatal hernia repair and is afraid to vomit due to that recent surgery.? White count is 15.6.? Neutrophils 76.4.? AST is 82 which is down from last month and ALT is 220 down from last month alkaline phosphatase is 250 which is up from last month.? He was negative for influenza A/B and COVID.? Stool cultures have been ordered.? The patient was started on IV fluids, Zofran, Pepcid, Benadryl, Flagyl and vancomycin.? CT of the abdomen was read as persisted knapp colitis.? The patient is being admitted to observation status on the date of service of 07/18/2022. Review of Systems Review of Systems: All systems reviewed & are unre
[2022-07-21 08:07] LABS: Blood Urea Nitrogen < 2 mg/dL (9-20)
--- NOTE | 2022-07-21 08:15 | IDPHARM ---
Subjective Pharmacy was consulted by {Provider} regarding infectious diseases for Houston Bowers. Houston Bowers is a 52 year old M with concerns regarding CDI. Background The patient is currently receiving fidaxomicin day 3 after previously completing a PO vancomycin regimen from a CDI infection noted in June, per the H&P. The patient's PMH is as seen in provider notes, with, notably, the C Diff test being positive. Leukocytosis has resolved. Assessment/Recommendation/Discussion Discussed this with provider and as, per provider, the diarrhea is resolving, along with other labs show efficacy of current regimen. Additionally, given this is a recurrence, fidaxomicin is likely the preferred drug for this course. May need confirmation that this is approved by insurance should patient be discharged on this. Thank you for the interesting consult. Sonido Bullock, NasD Infectious Disease/Antimicrobial Stewardship Pharmacist 07/21/22; [id number]
--- NOTE | 2022-07-21 08:30 | PM.DS ---
DS: Admitting Diagnosis Discharge Date 07/21/2230 Admitting Diagnosis C Diff occurrence DS: Discharge Diagnosis Discharge Diagnosis (1) Pancolitis: Code(s): K51.00 - Ulcerative (chronic) pancolitis without complications Status: Acute Assessment and Plan: -waiting stool cultures -the patient was given Flagyl and oral vancomycin in the emergency room. -Continue Dificid, add Flagyl -consulted Infectious Disease pharmacist. -GI consult thank you for your help -his white count is trending down, currently 7.5 (2) C. difficile colitis: Code(s): A04.72 - Enterocolitis due to Clostridium difficile, not specified as recurrent Status: Acute Assessment and Plan: C.diff is positive again Just completed course of vancomycin continue Dificid WBC 7.5 today GI consulted Should probably consider a fecal transplant (3) BPH (benign prostatic hyperplasia): Code(s): N40.0 - Benign prostatic hyperplasia without lower urinary tract symptoms Status: Acute Assessment and Plan: -continue with tamsulosin -Trend urine output (4) Abnormal liver enzymes: Code(s): R74.8 - Abnormal levels of other serum enzymes Status: Acute Assessment and Plan: -patient had upper quadrant ultrasound on 06/18/2022 which was read as diffuse hepatic steatosis -AST/ALT / -Hep panel negative (5) Migraine: Code(s): G43.909 - Migraine, unspecified, not intractable, without status migrainosus Status: Acute Assessment and Plan: -continue with ibuprofen, rezatriptan, and topiramate (6) Anxiety: Code(s): F41.9 - Anxiety disorder, unspecified Status: Acute Assessment and Plan: -continue with alprazolam (7) Depression: Code(s): F32.9 - Major depressive disorder, single episode, unspecified Status: Acute Assessment and Plan: Continue with viibyrd may use his own if it is non formulary. DS: Summary Hospital Course Hospital Course: Patient is a 52-year-old male with a past medical history of C diff, hypertension, GERD, laproscopic Quinton Fundoplication who presented to the ED with complaints of abdominal pain, frequent bowel movements, nausea with dry heaving. Patient recently been taking Augmentin for sinus infection. Patient initially presented to the hospital at the beginning of June and was discharged on oral antibiotics for C diff. patient had finished his course of antibiotics however was unsuccessful as the diarrhea returned. Upon arrival patient was noted to have an elevated white count and his C diff did come back positive. Stool cultures have been ordered however continued to pend. White blood cell count is stable at 7.5 today. ALT was noted to be high upon arrival is currently trending down at this time. Patient was started on Dificid and Flagyl and Flagyl has been discontinued. CT of the abdomen and pelvis was read is pain colitis. GI has been consulted. Patient has been able to advance his diet has been able to tolerate a diet this time. He still does have some urgency specially after he eats however his diarrhea has been very minimal with 1-2 episodes per day. He also was complaining of a cough and congestion. Patient was started on Claritin with some resolution. IV fluids were initiated upon arrival for dehydration. Labs are stable at this time. Patient denies any chest pain, shortness a breath, nausea, vomiting, constipation, weakness or fatigue. Patient is stable for discharge at this time and will need to follow up with GI in the office as instructed. Status at Discharge Functional status at discharge: independent ambulation Overall status at discharge: patient is progressing back to baseline Time Spent with Patient Time attestation: Total time spent providing an
[2022-07-21 08:50] VITALS: O2SAT 98
[2022-07-21] MEDS: ACIDOPHILUS/BULGARICUS CHEWABLE TABLET 1 TABLET PO (08:50)
[2022-07-21] MEDS: FIDAXOMICIN 200 MG TABLET PO ×2 (08:50→16:48)
[2022-07-21] MEDS: TAMSULOSIN HCL 0.4 MG CAPSULE PO (08:50)
[2022-07-21] MEDS: TOPIRAMATE 100 MG TABLET PO (08:50)
[2022-07-21 10:00] VITALS: BP 128/72; PULSE 84; RESP 18; TEMP 36.9; O2SAT 96
[2022-07-21 14:00] VITALS: BP 126/82; PULSE 92; RESP 18; TEMP 36.6; O2SAT 96
--- NOTE | 2022-07-21 16:02 | PC.NURSE ---
[employer] called and spoke with ED in pharmacy regarding the soonest the pt can receive his 2100 difficid dose as pt requires does prior to D/C Ed reports okay to give between [id number]
== END 2022-07-21 17:00 | disposition home or self-care (01) | DRG 372 ==
LOC: ANHED 17:07 → ANH2MED 17:59
PROVIDERS: Nurse Practitioner; Physician Assistant; Admitting Provider Hospitalist; Emergency Provider Emergency Medicine; PCP Emergency Medicine; Visit Provider Nurse Practitioner
DX: A04.71 Enterocolitis due to Clostridium difficile, recurrent (principal); K51.00 Ulcerative (chronic) pancolitis without complications; N40.0 Benign prostatic hyperplasia without lower urinary tract symptoms; K76.0 Fatty (change of) liver, not elsewhere classified; G43.909 Migraine, unspecified, not intractable, without status migrainosus; F41.9 Anxiety disorder, unspecified; F32.9 Major depressive disorder, single episode, unspecified; I10 Essential (primary) hypertension; K21.9 Gastro-esophageal reflux disease without esophagitis; Z20.822 Contact with and (suspected) exposure to COVID-19; Z79.899 Other long term (current) drug therapy; Z86.16 Personal history of COVID-19; Z82.49 Family history of ischemic heart disease and other diseases of the circulatory system; Z82.3 Family history of stroke
CPT/HCPCS: 36415; 71045; 74177; 80053; 83615; 83690; 83735; 84443; 85025; 87269; 87272; 87493; 87636; 96361; 96365; 96375; 99285; A9270; G0378; J1200; J2405; J2765; J7030; J7120; Q9967

== ENCOUNTER → 2022-10-02 15:23 | Outpatient (CLI) | payer BC, SELFPAY ==
--- NOTE | ~2022-10-02 | XR_ITS ---
[id number] 10/02/2022 16:17 Indication: Neck pain Procedure: 3 views of the cervical spine Comparison: No prior studies for comparison. Findings: Odontoid process is normal. Lateral masses are normally aligned. There are are cervical fus ion changes at C5-C7. There is straightening of cervical lordosis. No prevertebral soft tissue swelli ng. There is moderate multilevel uncinate and facet hypertrophy. Odontoid process is normal. Lung api ashley are unremarkable. Impression: 1: No acute abnormality of the cervical spine. Reviewed, dictated and finalized at location A. LABORER Impression: 1: No acute abnormality of the cervical spine.
== END ==
PROVIDERS: PCP Emergency Medicine
DX: M54.2 Cervicalgia (principal)
CPT/HCPCS: 72040

== ENCOUNTER 2024-03-20 08:07 | Emergency (ER) | payer BC, SELFPAY ==
[2024-03-20 08:17] VITALS: BP 128/83; PULSE 62; RESP 16; TEMP 36.8; O2SAT 100
--- NOTE | 2024-03-20 08:29 | ED.SKABFB ---
HPI - Skin/Abscess/Foreign Bdy General Chief complaint: Skin/Abscess/Foreign Body Stated complaint: Poison Elvia on Face Time Seen by Provider: 03/20/24 08:26 Source: patient and RN notes reviewed Mode of arrival: ambulatory Limitations: no limitations History of Present Illness HPI narrative: 54-year-old male presents with concern for poison elvia. He reports he was clearing [place] with his tractor he noticed a rash on Thursday. Reports his on his arms, face. Reports is close to his eyes and he can feel it moving towards his mouth. He denies swollen lips, swollen tongue, trouble breathing. He reports he washed it with discharge okay and has used steroid cream and Benadryl without relief. MD complaint: rash Related Data Home Medications Medication Instructions Recorded Confirmed propranolol 20 mg tablet 10 mg PO BID 08/24/23 03/20/24 atomoxetine 40 mg capsule 40 mg PO DAILY 12/28/23 03/20/24 (Strattera) topiramate 200 mg tablet 200 mg PO DAILY 12/28/23 03/20/24 Allergies Allergy/AdvReac Type Severity Reaction Status Date / Time No Known Allergies Allergy Verified 03/20/24 08:13 Review of Systems Review of Systems: CONSTITUTIONAL: Denies malaise, chills, sweats, or fever. EYES: Denies redness, or discharge. ENT: Denies rhinorrhea, congestion, swollen lips, swollen tongue CARDIOVASCULAR: Denies chest pain, palpitations, or edema. RESPIRATORY: Denies cough or dyspnea. GASTROINTESTINAL: Denies abdominal pain, nausea, vomiting SKIN: Reports itchy rash on his face and arms MUSCULOSKELETAL: Denies joint pain or myalgia. NEUROLOGIC: Denies headache. All systems reviewed & are unremarkable except as noted in HPI and below PMFSH Past Medical History Medical History Abnormal CT scan Acute non-recurrent maxillary sinusitis Anxiety Bladder retention of urine BMI 38.0-38.9,adult Cervical pain Chronic bilateral low back pain without sciatica Complicated grieving COVID-19 Depression Encounter for screening colonoscopy Encounter for screening for cardiovascular disorders Erectile dysfunction Essential hypertension Fatty liver disease, nonalcoholic Gastroesophageal reflux disease without esophagitis GERD (gastroesophageal reflux disease) Hiatal hernia Hiatal hernia with GERD History of frequent headaches HTN (hypertension) Hypogonadism, male Lower abdominal pain Other chronic pain Screening PSA (prostate specific antigen) Vitamin D deficiency Weight loss counseling, encounter for Surgical History Surgical History H/O sinus surgery History of cervical spinal arthrodesis History of cholecystectomy History of lumbar spinal fusion History of shoulder surgery History of shoulder surgery History of sinus surgery Status post laparoscopic Quinton fundoplication 10/24/21 Family History Family History Other Cerebrovascular accident Family history of coronary artery disease Hypertension Social History Social History (Updated 12/28/23 @ 14:57 by Michelle Galloway MA) Social History: The patient works for [employer]. He lives with his and has 2 children. Lives with 2 dogs and 4 cats. He is a lifelong nonsmoker and does not use any alcohol marijuana or illicit drugs. Code status full code Smoking status: Never smoker Second hand tobacco smoke exposure: No Alcohol intake: never Drinks per week: 12 Alcohol use details: Patient drinks alcohol rarely. Substance use: never Substance use type: does not use Current Housing: Decline to Answer Concerned About Future Housing: Decline to Answer Difficulty Paying Gas/Electric Bills: Decline to Answer Difficulty Paying for Meds: Decline to Answer Currently Unemployed: Decline to Answer Education: Decline to Answer Difficulty w/ Childcare or Family Ca
[2024-03-20] MEDS: methylPREDNISolone SOD SUCC 125 MG VIAL IM (08:41)
== END 2024-03-20 09:01 | disposition home or self-care (01) ==
PROVIDERS: Emergency Provider Nurse Practitioner; PCP Emergency Medicine
DX: L25.9 Unspecified contact dermatitis, unspecified cause (principal); I10 Essential (primary) hypertension; K76.0 Fatty (change of) liver, not elsewhere classified; K21.9 Gastro-esophageal reflux disease without esophagitis
CPT/HCPCS: 96372; 99213; G0463; J2919

== ENCOUNTER 2025-07-18 19:58 | Inpatient (IN) | payer BC, SELFPAY ==
[2025-07-18] VITALS (8 sets, daily range): BP systolic 152–177; BP diastolic 96–121; PULSE 75–94; RESP 18–22; TEMP 36.3; O2SAT 97–100
--- NOTE | ~2025-07-18 | XR_ITS ---
EXAMINATION: XR sm bowel follow through WS DATE: 07/20/2025 10:16 INDICATION: Small bowel obstruction TECHNIQUE: Keno Clerk radiograph(s) of the abdomen was/were obtained. Oral contrast was administered, and sequential radiographs of the abdomen were obtained until oral contrast was noted to be in the proximal colon. COMPARISON: CT dated 07/18/2025 FINDINGS: Keno Clerk radiograph demonstrates nasogastric tube tip in proximal side port in the body the stomach. Cholecystectomy clips in right upper quadrant. Moderate amount of stool scattered throughout the colon. No dilated loops of gas-filled bowel to suggest obstruction. Postoperative change of prior instrumented L5-S1 anterior spinal fusion with interbody bone graft cage. There is also an interspinous process devices at L4-L5. Chronic L1 compression fracture. Visualized lung bases are clear. Transit time from the stomach to proximal colon was approximately 35 minutes. There is normal caliber and mucosal fold pattern throughout the small bowel. IMPRESSION: 1. Normal small bowel follow-through study with small bowel transit time of 45 minutes. Reviewed, dictated and finalized at location A. PATIONAL THER
--- NOTE | ~2025-07-18 | CT_ITS ---
CT abdomen pelvis w con INDICATION:abdominal pain . COMPARISON: None. TECHNIQUE: Axial images of the abdomen and pelvis were obtained following infusion of 100 mL Isovue 300. Dose optimization technique was utilized. FINDINGS: The lung bases are clear. There is a small hiatal hernia. The liver parenchyma is unremarkable. No intrahepatic mass or ductal dilatation is evident. The gallbladder is unremarkable. The pancreas and spleen are normal in appearance. The adrenal glands are symmetric in size. The kidneys demonstrate symmetric uptake and excretion of contrast. No cystic mass is evident. There is no solid mass. There is no hydronephrosis. Distended stomach and small bowel loops with multiple air-fluid levels are noted. There is decompressed distal small bowel loops. These findings are suggestive of a small bowel obstruction with transition point in the right lower quadrant of the abdomen. There is mild colonic diverticulosis without evidence of acute diverticulitis. The bladder and rectum are normal. No free intraperitoneal fluid or air is evident. There is no significant retroperitoneal lymphadenopathy. The aorta, visceral vessels and renal arteries demonstrate normal caliber and patency. The lower thoracic and lumbar vertebrae are in normal alignment. IMPRESSION: Findings suggestive of a small bowel obstruction. All CT scans at this facility are performed using low dose modulation techniques as appropriate to perform exam including the following: automated exposure control; use of iterative reconstruction technique; adjustment of the mA and/or kV according to patient size (this includes techniques or standardized protocols for targeted exams where dose is matched to indication/reason for exam). Reviewed, dictated and finalized at location S. SERVICER IMPRESSION: Findings suggestive of a small bowel obstruction. All CT scans at this facility are performed using low dose modulation techniqu es as appropriate to perform exam including the following: automated exposure c ontrol; use of iterative reconstruction technique; adjustment of the mA and/or kV according to patient size (this includes techniques or standardized protocol s for targeted exams where dose is matched to indication/reason for exam).
--- NOTE | ~2025-07-18 | XR_ITS ---
Examination: XR abdomen gastric tube insert Clinical History: reinserted NG tube Comparison: 2 days prior Technique: Portable AP upright abdomen X-ray contains lower chest and upper abdomen Findings/impression: 1. NG tube within stomach, with sidehole several centimeters past GE junction. 2. Improving but persistent enteric gaseous distention. Reviewed, dictated and finalized at location R. OARD INSTRUMENT TUNER
--- NOTE | ~2025-07-18 | XR_ITS ---
XR abdomen gastric tube insert INDICATION: NG placement REFERENCE: NONE FINDINGS: A supine view of the abdomen is submitted.Gaseous distention of the bowel loops are noted. Enteric tube is in place. No free air is identified. Osseous structures are intact. IMPRESSION: Enteric tube terminates in the stomach. Small bowel obstruction is noted. Reviewed, dictated and finalized at location S. MACOGNOSIST
--- NOTE | 2025-07-18 20:48 | ECG_ITS ---
Test Date: 2025-07-18 21:24:54 Measurements Intervals [place] Rate: 71 P: 0 NE: 207 QRS: -9 QRSD: 115 T: -15 QT: 382 QTc: 416 Interpretive Statements SINUS RHYTHM BORDERLINE AV CONDUCTION DELAY INTRAVENTRICULAR CONDUCTION DELAY BORDERLINE T WAVE ABNORMALITY- INFERIOR LEADS BORDERLINE ECG No previous ECG available for comparison Electronically Signed On 07-19-2025 06:10:55 HANDICAPPED TEACHER by Aidan Hooker D.O.
[2025-07-18] MEDS: SODIUM CHLORIDE 0.9% IV 1,000 ML 999 ML IV CONT (21:10)
[2025-07-18] MEDS: PANTOPRAZOLE SODIUM IV 40 MG VIAL IV PUSH (21:10)
[2025-07-18] MEDS: MORPHINE SULFATE (*CRX) 4 MG/ML INJ IV PUSH (21:10)
[2025-07-18] MEDS: ONDANSETRON INJ 4 MG/2 ML VIAL IV PUSH (21:10)
[2025-07-18 21:11] LABS: Hematocrit 49.5 % (42.0-52.0); Hemoglobin 16.9 g/dL (14.0-18.0); Immature Granulocyte Percent A 0.2 % (0-0.5); Lymphocytes Absolute Auto 0.63 K/mm3 (0.9-3.2); Mean Corpuscular HGB Conc 34.1 g/dl (32-36); Mean Corpuscular Hemoglobin 30.0 pg (26-34); Mean Corpuscular Volume 87.8 fl (80-100); Nucleated Red Blood Cells Absolute Auto 0.000 K/mm3 (0.0-0.012); Nucleated Red Blood Cells Perc 0.0 % (0.0-0.2); Platelet Count Result 272 k/mm3 (150-375); Red Blood Count 5.64 M/mm3 (4.6-6.20); White Blood Count 10.6 K/mm3 (4.5-10.0)
[2025-07-18 21:25] LABS: INR 0.9; Prothrombin Time 12.8 Seconds (11.1-14.7)
[2025-07-18 21:26] LABS: Alanine Aminotransferase 80 U/L (6-50); Albumin Level 5.0 g/dL (3.5-5.1); Alkaline Phosphatase 71 U/L (38-126); Anion Gap 11 mmol/L (4-12); Aspartate Amino Transferase 58 U/L (17-59); Bilirubin,Total 1.2 mg/dL (0.2-1.3); Blood Urea Nitrogen 24 mg/dL (9-20); CRP 2.3 mg/dL (<1.0); Calcium 9.9 mg/dL (8.4-10.2); Carbon Dioxide 23 mmol/L (22-30); Chloride 105 mmol/L (98-107); Estimated CRCL calculation 97 ml/min; Estimated Glomerular Filt Rate > 60; Glucose 167 mg/dL (65-110); Magnesium 1.9 mg/dL (1.6-2.3); Partial Thromboplastin Time 28.0 Seconds (22.3-36.8); Potassium 4.0 mmol/L (3.4-5.0); Sodium 139 mmol/L (137-145); Total Protein 8.5 g/dL (6.3-8.2)
--- NOTE | 2025-07-18 21:31 | ED.ABDPAIN ---
HPI - Abdominal Pain General Chief Complaint: Abdominal Pain Stated Complaint: abdominal pain Time Seen by Provider: 07/18/25 20:47 Source: patient and family Mode of arrival: ambulatory Limitations: no limitations History of Present Illness HPI narrative: Patient is a 55-year-old male presents to the emergency department accompanied by complaining of abdominal pain, inability keep a, mouth, constipation, decreased urine output. Patient notes that the pain started around 10:00 a.m. this morning, comes and goes, mostly in his upper abdomen but also generalized, radiates slightly toward his back, admits to history is pain in the past, gets it occasionally since he had a fundoplication back in 2021 and had this when he was able to prove in the past. Patient notes he has not had a bowel movement the past 2-3 days. Patient has decreased urine output. Patient admits to nausea and dry heaving now to keep anything down by mouth. Patient denies any known fevers. Patient has not noticed anything making his pain, undergo a. Patient denies any recent injuries. Patient denies any chest pain difficulty breathing or cough for focal weakness or numbness. Related Data Home Medications ?Medication ?Instructions ?Recorded ?Confirmed ?Last Taken ?Type propranolol 20 mg tablet 10 mg PO BID 08/24/23 06/14/25 Unknown History topiramate 200 mg tablet 200 mg PO DAILY 12/28/23 06/14/25 Unknown History methylphenidate HCl 18 mg 18 mg PO QAM 01/04/25 06/14/25 Unknown History tablet,extended release 24 hr (Concerta) trazodone 50 mg tablet 100 mg PO QHS PRN 01/04/25 06/14/25 Unknown History nortriptyline 10 mg capsule 10 mg PO DAILY 05/08/25 06/14/25 Unknown History Allergies Allergy/AdvReac Type Severity Reaction Status Date / Time No Known Allergies Allergy Verified 05/08/25 10:56 Review of Systems Review of Systems: A 10 system review of systems was completed on the patient and is negative except for what is stated in the HPI. Nursing and ancillary documentation was reviewed. [facility] Past Medical History Medical History Pancolitis Sinus drainage C. difficile colitis COVID-19 C. difficile colitis Erectile dysfunction Weight loss counseling, encounter for Fatty liver disease, nonalcoholic Bladder retention of urine Lower abdominal pain Vitamin D deficiency Other chronic pain Hypogonadism, male Gastroesophageal reflux disease without esophagitis Essential hypertension Encounter for screening for cardiovascular disorders Chronic bilateral low back pain without sciatica Cervical pain Acute non-recurrent maxillary sinusitis COVID-19 Hiatal hernia with GERD History of frequent headaches BMI 38.0-38.9,adult Screening PSA (prostate specific antigen) Depression Anxiety Abnormal CT scan Encounter for screening colonoscopy Hiatal hernia Complicated grieving GERD (gastroesophageal reflux disease) HTN (hypertension) Surgical History Surgical History Status post laparoscopic [place] fundoplication 10/24/21 History of cervical spinal arthrodesis History of cholecystectomy History of sinus surgery History of shoulder surgery History of lumbar spinal fusion H/O sinus surgery History of shoulder surgery Family History Family History Other Cerebrovascular accident Family history of coronary artery disease Hypertension Social History Social History Social History: The patient works for [employer]. He lives with his and has 2 children. Lives with 2 dogs and 4 cats. He is a lifelong nonsmoker and does not use any alcohol marijuana or illicit drugs. Code status full code Smoking status: Never smoker Second hand tobacco smoke exposure: No Alcohol intake: current Alcohol use details: Very rarely. 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 Well nourished. HENMT: Head is normocephalic and atraumatic. Tacky mucous membranes. No posterior oropharynx erythema. EYES: No scleral icterus. No conjunctival injection or pallor. PERRL. NECK: No meningeal signs. RESP: Able to speak in full sentences. Normal respiratory effort. CTAB. CARDIO: Regular rate. Regular rhythm. 2+ DP and radial pulses bilaterally. GI: Nondistended. Mild generalized tenderness palpation, patient reports to being worse in the upper abdomen, no rebound or guarding or rigidity. Soft. : No CVA tenderness to palpation. SKIN: No rashes or lesions noted on exposed skin. NEURO: Oriented x3. Moves all extremities. No focal neurological deficits. EXTREM/MSK/BACK: No pedal edema. PSYCH: Normal affect. Course Vital Signs Vital signs: Vital Signs Temperature 97.4 F L 07/18/25 20:02 Pulse Rate 77 07/18/25 20:02 Respiratory Rate 18 07/18/25 20:02 Blood Pressure 177/108 H 07/18/25 20:02 Pulse Oximetry 100 07/18/25 20:02 Oxygen Delivery Room Air 07/18/25 20:02 Temperature 97.4 F L 07/18/25 20:02 Pulse Rate 77 07/18/25 20:02 Respiratory Rate 18 07/18/25 20:02 Blood Pressure 177/108 H 07/18/25 20:02 Pulse Oximetry 100 07/18/25 20:02 Oxygen Delivery Room Air 07/18/25 20:02 [facility] Narrative Medical decision making narrative: Patient presents with the above complaint. Initial vitals are remarkable for no significant abnormalities. Physical examination as noted above. Plan discussed: laboratory analysis, EKG, imaging. Patient ordered IV fluids, morphine, Protonix, Zofran, continues cardiac monitoring, continuous pulse oximetry, NPO, bladder scan. I spoke with General surgery on-call Dr. Maravilla who notes to place an NG tube, will see the patient on consultation, admit to the hospitalist. NG tube placed placed on low intermittent suctioning, x-ray reveals as enteric tube in appropriate positioning. I spoke with the hospitalist on-call who has accepted the patient for admission. Differential Diagnosis Differential Diagnosis: Gastritis, peptic ulcer disease, bowel obstruction, constipation, pancreatitis, ureterolithiasis, metabolic derangement, electrolyte derangement, hepatobiliary pathology, other acute surgical abdominal process. Lab Data [facility] Lab Attestation statement: I personally reviewed the patient's lab results. Lab results narrative: CBC reveals a white blood cell count 10.6. Coags within normal limits. Comprehensive metabolic panel reveals a BUN of 24, glucose 167, ALT of 80. CRP is 2.3. Magnesium is 1.9. Lactic acid of 2.1. Ethyl alcohol is less than 10. Lipase is 2872. Troponin is 0.014. 07/18/25 21:05 07/18/25 21:05 Labs: Lab Results 07/18/25 Range/Units 21:05 WBC 10.6 H (4.5-10.0) K/mm3 RBC 5.64 (4.6-6.20) M/mm3 Hgb 16.9 D (14.0-18.0) g/dL Hct 49.5 (42.0-52.0) % MCV 87.8 (80-100) fl MCH 30.0 (26-34) pg MCHC 34.1 (32-36) g/dl RDW 12.8 (11.5-14.5) % Plt Count 272 (150-375) k/mm3 MPV 9.0 (7.4-10.4) fl Immature Gran % (Auto) 0.2 (0-0.5) % Neut % (Auto) 85.9 H (45.5-73.1) % Lymph % (Auto) 6.0 L (18.3-44.2) % [place] % (Auto) 7.4 (2.6-8.5) % Eos % (Auto) 0.1 (0-4.4) % Baso % (Auto) 0.4 (0.2-1.2) % Lymph # (Auto) 0.63 L (0.9-3.2) K/mm3 [place] # (Auto) 0.8 H (0.1-0.6) K/mm3 Eos # (Auto) 0.0 (0-0.3) K/mm3 Baso # (Auto) 0.0 (0.0-0.1) K/mm3 Abs Immat Gran (auto) 0.02 (0.00-0.031) K/mm3 Absolute Neuts (auto) 9.1 H (1.3-6.7) K/mm3 Absolute Nucleated RBC 0.000 (0.0-0.012) K/mm3 Nucleated RBC % 0.0 (0.0-0.2) % PT 12.8 (11.1-14.7) Seconds INR 0.9 APTT 28.0 (22.3-36.8) Seconds Sodium 139 (137-145) mmol/L Potassium 4.0 (3.4-5.0) mmol/L Chloride 105 (98-107) mmol/L Carbon Dioxide 23 (22-30) mmol/L Anion Gap 11 (4-12) mmol/L BUN 24 H D (9-20) mg/dL Creatinine 0.94 (0.7-1.3) mg/dL Estim Creat Clear Calc 97 ml/min Estimated GFR > 60 (59 - ) Glucose 167 H (65-110) mg/dL Lactic Acid 2.1 H (0.7-2.0) mmol/L Calcium 9.9 (8.4-10.2) mg/dL Magnesium 1.9 (1.6-2.3) mg/dL Total Bilirubin 1.2 (0.2-1.3) mg/dL AST 58 (17-59) U/L ALT 80 H (6-50) U/L Alkaline Phosphatase 71 (38-126) U/L Troponin I 0.014 (0.000-0.034) ng/mL C-Reactive Protein 2.3 H (<1.0) mg/dL Total Protein 8.5 H (6.3-8.2) g/dL Albumin 5.0 (3.5-5.1) g/dL Lipase 2872 H (23-300) U/L TSH (Reflex) 0.822 (0.465-4.68) uIU/mL Ethyl Alcohol < 10 (<10) mg/dL Imaging Data Attestation: I personally reviewed and interpreted this imaging study as follows: Radiologist's impression: ITS Impressions Abdomen/Pelvis CT 07/18/25 22:09 IMPRESSION: Findings suggestive of a small bowel obstruction. All CT scans at this facility are performed using low dose modulation techniques as appropriate to perform exam including the following: automated exposure control; use of iterative reconstruction technique; adjustment of the mA and/or kV according to patient size (this includes techniques or standardized protocols for targeted exams where dose is matched to indication/reason for exam). Abdomen X-Ray 07/18/25 22:51 IMPRESSION: Enteric tube terminates in the stomach. Small bowel obstruction is noted. ECG Data EKG #1: Attestation: I personally reviewed and interpreted this ECG as follows: ECG completion date: 07/18/25 ECG completion time: 21:24 Interpretation: Rate of 71, rhythm is sinus rhythm, axis is indeterminate, QRS duration 115 milliseconds, OR interval of 207 milliseconds, moderate intraventricular conduction delay, no ST elevations or depressions, T-wave inversions present in leads 3 and AVF. Discharge Plan Discharge Clinical Impression: SBO (small bowel obstruction), Pancreatitis Patient Disposition: Still a Patient Condition: Serious Instructions: Antibiotic Form Patient Language: Sudanese Prescriptions: No Action topiramate [Topamax] 100 mg tablet 100 mg PO DAILY nortriptyline 10 mg capsule 10 mg PO DAILY prednisone 20 mg tablet 20 mg PO DAILY Qty: 5 0RF propranolol 20 mg tablet 10 mg PO BID topiramate 200 mg tablet 200 mg PO DAILY trazodone 50 mg tablet 100 mg PO QHS PRN methylphenidate HCl [Concerta] 18 mg tablet extended release 24hr 18 mg PO QAM loratadine [Claritin] 10 mg tablet 10 mg PO DAILY Qty: 30 0RF rizatriptan 10 mg tablet See Rx Instructions .ROUTE .COMPLEX Qty: 9 3RF Dose Instruction: TAKE 1 TABLET BY MOUTH ONE TIME NEEDED FOR MIGRAINE HEADACHE. MAY REPEAT ONE TIME AT LEAST 2 HOURS LATER Rx Instructions: TAKE 1 TABLET BY MOUTH ONE TIME NEEDED FOR MIGRAINE HEADACHE. MAY REPEAT ONE TIME AT LEAST 2 HOURS LATER baclofen 20 mg tablet See Rx Instructions .ROUTE .COMPLEX Qty: 90 2RF Dose Instruction: TAKE 1 TABLET BY MOUTH 4 TIMES DAILY NEEDED FOR MUSCLE SPASM Rx Instructions: TAKE 1 TABLET BY MOUTH 4 TIMES DAILY NEEDED FOR MUSCLE SPASM alprazolam 0.5 mg tablet 0.5 mg PO TID PRN (Reason: Anxiety) Qty: 30 1RF Follow-up/Referrals: Satya Dockery MD [Primary Care Provider, Internal Medicine] Time of Disposition: 23:00
[2025-07-18 22:05] LABS: Thyroid Stimulating Hormone Reflex 0.822 uIU/mL (0.465-4.68)
[2025-07-18 22:21] LABS: Troponin I 0.014 ng/mL (0.000-0.034)
[2025-07-18 22:22] LABS: Lipase 2872 U/L (23-300)
--- NOTE | 2025-07-18 23:23 | PC.NURSE ---
VRBO LABETALOL 10MG IV PUSH X 1 DOSE PER EDP BRADY
[2025-07-18] MEDS: HYDROmorphone HCL INJ (*CRX) 1 MG/ML SYR 0.5 MG IV PUSH (23:32)
[2025-07-19] VITALS (12 sets, daily range): BP systolic 132–158; BP diastolic 80–100; PULSE 74–101; RESP 18–22; TEMP 36.2–37; O2SAT 94–99; BMI 34.5
[2025-07-19] MEDS: SODIUM CHLORIDE 0.9% IV 1,000 ML 125 ML IV CONT ×3 (00:28→19:32)
--- NOTE | 2025-07-19 00:45 | PC.NURSE ---
This RN contacted Dr. Cordero regarding pt's HTN. Pt reports that he takes propranolol at home due to his anxiety, not HTN, pt states that he has had episodes of HTN before but is not taking medication specifically for that. Dr. Cordero aware that pt's blood pressure drops with narcotic medication per pt, this RN has been monitoring BP since giving dilaudid. BP reached 132/96 and came back up to 153/100. Dr. Cordero states to give the 10mg of labetalol and he will order pt's home meds when he gets to the floor.
--- NOTE | 2025-07-19 00:52 | PM.IMHP2 ---
H&P: HPI History of Present Illness Date/Time: 07/19/25 00:52 Chief Complaint: Abdominal pain Narrative: 55-year-old male presents [facility] on 07/18/2025 complaining of abdominal pain and inability to defecate for several days, decreased oral intake and decreased urine output. Abdominal pain is generalized and radiates to the back. He has a complicated history following hepatology at [facility] status post Quinton fundoplication in 2021 for severe acid reflux, postprocedure had C diff, since then has had alternating constipation and diarrhea. Hepatology note from [facility] documents MASLD Status post cholecystectomy. Also history of GERD, hypertension, anxiety and depression. Blood pressure 177/108 improved to 140 9/99 after Dilaudid/pain control. WBC 20068, serum creatinine 0.94, lactic acid 2.1, improved to 1.6. ALT 80, T bilirubin 1.2. CRP 2.3, lipase 2872. Serum alcohol level within normal limits. CT abdomen and pelvis with contrast demonstrates, transition point in the right lower quadrant. Patient received labetalol 10 mg IV x1, Protonix 40 mg IV x1, Zofran, morphine 4 mg IV x1, 1 L normal saline bolus. Review of Systems Review of Systems: All systems reviewed & are unremarkable except as noted in HPI and below (Subjective) PMFSH Past Medical History Medical History Pancolitis Sinus drainage C. difficile colitis COVID-19 C. difficile colitis Erectile dysfunction Weight loss counseling, encounter for Fatty liver disease, nonalcoholic Bladder retention of urine Lower abdominal pain Vitamin D deficiency Other chronic pain Hypogonadism, male Gastroesophageal reflux disease without esophagitis Essential hypertension Encounter for screening for cardiovascular disorders Chronic bilateral low back pain without sciatica Cervical pain Acute non-recurrent maxillary sinusitis COVID-19 Hiatal hernia with GERD History of frequent headaches BMI 38.0-38.9,adult Screening PSA (prostate specific antigen) Depression Anxiety Abnormal CT scan Encounter for screening colonoscopy Hiatal hernia Complicated grieving GERD (gastroesophageal reflux disease) HTN (hypertension) Surgical History Surgical History Status post laparoscopic Quinton fundoplication 10/24/21 History of cervical spinal arthrodesis History of cholecystectomy History of sinus surgery History of shoulder surgery History of lumbar spinal fusion H/O sinus surgery History of shoulder surgery Family History Family History Other Cerebrovascular accident Family history of coronary artery disease Hypertension Social History Social History Social History: The patient works for [employer]. He lives with his and has 2 children. Lives with 2 dogs and 4 cats. He is a lifelong nonsmoker and does not use any alcohol marijuana or illicit drugs. Code status full code Smoking status: Never smoker Second hand tobacco smoke exposure: No Alcohol intake: current Alcohol use details: Very rarely. 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 Gender identity (if verbalized by the patient): Male Sexual Orientation (if Verbalized by the Patient): Straight or Heterosexual Spiritual care concerns: No Meds Home Medications and Allergies Home Medications ?Medication ?Instructions ?Recorded ?Confirmed ?Type loratadine 10 mg tablet (Claritin) 10 mg PO DAILY #30 tabs 07/21/22 06/14/25 Rx propranolol 20 mg tablet 10 mg PO BID 08/24/23 06/14/25 History topiramate 200 mg tablet 200 mg PO DAILY 12/28/23 06/14/25 History rizatriptan 10 mg tablet See Rx Instructions .Route 11/18/24 06/14/25 Rx .COMPLEX #9 tabs methylphenidate HCl 18 mg 18 mg PO QAM 01/04/25 06/14/25 History tablet,extended release 24 hr (Concerta) trazodone 50 mg tablet 100 mg PO QHS PRN 01/04/25 06/14/25 History nortriptyline 10 mg capsule 10 mg PO DAILY 05/08/25 06/14/25 History prednisone 20 mg tablet 20 mg PO DAILY #5 tabs 05/08/25 06/14/25 Rx baclofen 20 mg tablet See Rx Instructions .Route 05/15/25 Rx .COMPLEX #90 tabs alprazolam 0.5 mg tablet 0.5 mg PO TID PRN Anxiety #30 tabs 07/06/25 Rx Allergies Allergy/AdvReac Type Severity Reaction Status Date / Time No Known Allergies Allergy Verified 05/08/25 10:56 Vital Signs Vital Signs - 24 hr 07/18/25 20:02 07/18/25 20:45 07/18/25 21:00 Temperature 97.4 F L Pulse Rate 77 83 75 Respiratory Rate 18 18 18 Blood Pressure 177/108 H 160/116 H 164/102 H Pulse Oximetry 100 100 100 Oxygen Delivery Room Air 07/18/25 21:15 07/18/25 23:08 07/18/25 23:18 Temperature Pulse Rate 81 76 91 Respiratory Rate 22 H 18 20 Blood Pressure 162/119 H 152/121 H 153/113 H Pulse Oximetry 99 97 100 Oxygen Delivery 07/18/25 23:31 07/18/25 23:48 07/19/25 00:16 Temperature Pulse Rate 94 93 99 Respiratory Rate 20 18 19 Blood Pressure 155/100 H 153/96 H 136/92 H Pulse Oximetry 99 97 Oxygen Delivery 07/19/25 00:31 Temperature Pulse Rate 99 Respiratory Rate 22 H Blood Pressure 149/99 H Pulse Oximetry Oxygen Delivery Exam Const: General: comfortable and no acute distress Other: A&O x3 Eyes: Pupils: Equal, round and reactive pupils present Neck: Neck: supple Resp: Effort & Inspection: normal respiratory effort Auscultation: clear to auscultation bilaterally Cardio: Rate: regular rate Rhythm: regular rhythm GI: Other: Mild distension, no guarding, mild tenderness to deep palpation diffusely Neuro: Motor exam (neuro): 5/5 motor strength present throughout Extrem: General: no edema Results Labs Labs: Short CBC 07/18/25 Range/Units 21:05 WBC 10.6 H (4.5-10.0) K/mm3 Hgb 16.9 D (14.0-18.0) g/dL Hct 49.5 (42.0-52.0) % Plt Count 272 (150-375) k/mm3 BMP 07/18/25 21:05 Sodium 139 Potassium 4.0 Chloride 105 Carbon Dioxide 23 BUN 24 H D Creatinine 0.94 Glucose 167 H Calcium 9.9 Cardiac Enzymes 07/18/25 Range/Units 21:05 Troponin I 0.014 (0.000-0.034) ng/mL Liver Function 07/18/25 Range/Units 21:05 Total Bilirubin 1.2 (0.2-1.3) mg/dL AST 58 (17-59) U/L ALT 80 H (6-50) U/L Alkaline Phosphatase 71 (38-126) U/L Albumin 5.0 (3.5-5.1) g/dL Assessment and Plan Assessment and plan (1) SBO (small bowel obstruction): Code(s): K56.609 - Unspecified intestinal obstruction, unspecified as to partial versus complete obstruction Status: Acute Plan 55-year-old male presents [facility] on 07/18/2025 complaining of abdominal pain and inability to defecate for several days, decreased oral intake and decreased urine output. Abdominal pain is generalized and radiates to the back. He has a complicated history following hepatology at [facility] status post Quinton fundoplication in 2021 for severe acid reflux, postprocedure had C diff, since then has had alternating constipation and diarrhea. Hepatology note from [facility] documents MASLD Status post cholecystectomy. Also history of GERD, hypertension, anxiety and depression. Blood pressure 177/108 improved to 140 9/99 after Dilaudid/pain control. WBC 69623, serum creatinine 0.94, lactic acid 2.1, improved to 1.6. ALT 80, T bilirubin 1.2. CRP 2.3, lipase 2872. Serum alcohol level within normal limits. CT abdomen and pelvis with contrast demonstrates, transition point in the right lower quadrant. Patient received labetalol 10 mg IV x1, Protonix 40 mg IV x1, Zofran, morphine 4 mg IV x1, 1 L normal saline bolus. ----- SBO -NG tube inserted. NPO. General surgery consulted. Normal saline at 125 cc/hour. Zofran and Dilaudid p.r.n.. Continue Protonix. -elevated lipase more likely due to vomiting/SBO. Pancreas appears normal on CT scan Elevated blood pressure -improved status post pain control. Labetalol 10 mg IV x1 given, continue to follow blood pressure trend. Hold [employer] p.o. antihypertensives. ----- Patient wishes to be full code SCDs Expected length of stay greater than 2 midnights Prior Studies I have reviewed the following patient records and this information was taken into consideration when formulating the assessment and plan.: previous labs and previous clinic visits Time Spent with Patient Time with patient: less than 45 minutes Hospitalist MIPS Advance Care Plan I have confirmed that the patient's Advanced Care Plan is present, code status is documented, or surrogate decision maker is listed in patient medical record.: Yes Medication Reconciliation I have utilized all available resources to obtain, update and review the patients current medications (includes all prescriptions, OTC, herbals, cannabis, and nutritional supplements).: Yes
[2025-07-19] MEDS: ONDANSETRON INJ 4 MG/2 ML VIAL IV PUSH ×5 (00:53→21:01)
--- NOTE | 2025-07-19 01:21 | WPCEDHO ---
ED Hand Off Checklist All vitals saved: Y IV Site documented: Y All med administrations documented: Y Triage Note Triage Note Patient here with nausea, dry 07/18/25 20:02 heaves and abdominal pain. that started around 10 this AM. Patient had Fundectomy several years ago so is unable to vomit. Patient reports he has decreased urination and no BM today. Last time he had urinary retention he needed a catheter Patient dry heaving in triage Allergies No Known Allergies Allergy (Verified 05/08/25 10:56) Current Diagnoses Unspecified intestinal obstruction, unspecified as to partial versus complete obstruction (07/18/25) Family History (Last Reviewed 06/14/25 @ 14:00 by Satya Dockery MD) Other Cerebrovascular accident Family history of coronary artery disease Hypertension Active Medications including assessments/comments Hydromorphone HCl (Hydromorphone Hcl Inj (*Crx) 1 Mg/Ml Syr) 0.5 mg IV PUSH Q4H PRN PRN Reason: Pain Rated 7-10 Last Admin: 07/18/25 23:32 Dose: 0.5 mg Documented By: RENA [facility] Pain Assessment Document 07/18/25 23:32 RENA (Rec: 07/18/25 23:32 RENA [id number]) Pain Scale Pain Scale Used Numeric (1 - 10) Self Report Pain Assessment Reported Pain Level 7 Pain Score Pain Score 7: Self Report Re-Assess: AMAURI Pain/Fever Reassessment Document 07/19/25 00:02 RENA (Rec: 07/19/25 00:53 HOOD [id number]) Pain Scale Pain Scale Used Numeric (1 - 10) Self Report Pain Assessment Reported Pain Level 4 Pain Score Pain Score 4: Self Report Sodium Chloride (Normal Saline Iv) 1,000 mls @ 125 mls/hr IV CONT .Q8H CARMELO Last Admin: 07/19/25 00:28 Dose: 125 mls/hr Documented By: RENA Infusion/Titration Document 07/19/25 00:28 RENA (Rec: 07/19/25 00:28 RENA [id number]) Intake IV Site Peripheral Access Right Antecubital Container Volume 1,000 Waste Amount 0 Dosing Infusion Rate 125 Cumulative Dose Not Applicable Increase/Decrease Started Elapsed Time Elapsed Time ( 0m minutes) Ondansetron HCl (Ondansetron Inj 4 Mg/2 Ml Vial) 4 mg IV PUSH Q4H PRN PRN Reason: Nausea Last Admin: 07/19/25 00:53 Dose: 4 mg Documented By: HOODK Administered/Completed Medications Discontinued Medications Sodium Chloride (Normal Saline Iv) 1,000 mls @ 999 mls/hr IV CONT .Q1H1M STA Stop: 07/18/25 21:47 Last Infusion: 07/18/25 23:49 Dose: Infused Documented By: Admin: 07/18/25 21:10 Dose: 999 mls/hr Documented By: HOODK Labetalol HCl (Labetalol Hcl Inj 100 Mg/20 Ml Vial) 10 mg IV PUSH ONCE STA Stop: 07/18/25 23:23 Last Admin: 07/19/25 00:50 Dose: 10 mg Documented By: HOODK Morphine Sulfate (Morphine Sulfate (*Crx) 4 Mg/Ml Inj) 4 mg IV PUSH ONCE STA Stop: 07/18/25 20:48 Last Admin: 07/18/25 21:10 Dose: 4 mg Documented By: RENA Ondansetron HCl (Ondansetron Inj 4 Mg/2 Ml Vial) 4 mg IV PUSH ONCE STA Stop: 07/18/25 20:48 Last Admin: 07/18/25 21:10 Dose: 4 mg Documented By: RENA Pantoprazole Sodium (Pantoprazole Sodium Iv 40 Mg Vial) 40 mg IV PUSH ONCE STA Stop: 07/18/25 20:48 Last Admin: 07/18/25 21:10 Dose: 40 mg Documented By: RENA Notes 07/19/25 00:45 (created 07/19/25 00:57) Nurse Note by Sherrie Harp This RN contacted Dr. Cordero regarding pt's HTN. Pt reports that he takes propranolol at home due to his anxiety, not HTN, pt states that he has had episodes of HTN before but is not taking medication specifically for that. Dr. Cordero aware that pt's blood pressure drops with narcotic medication per pt, this RN has been monitoring BP since giving dilaudid. BP reached 132/96 and came back up to 153/100. Dr. Cordero states to give the 10mg of labetalol and he will order pt's home meds when he gets to the floor. Initialized on 07/19/25 00:57 - END OF NOTE 07/18/25 23:23 Nurse Note by Lillian Danielson LABETALOL 10MG IV PUSH X 1 DOSE PER EDP ABREU Initialized on 07/18/25 23:23 - END OF NOTE Interventions/Assessments IV / Saline Lock, Insert Start: 07/18/25 19:59 Freq: Status: Active Protocol: Document 07/18/25 21:09 HNK (Rec: 07/18/25 21:10 HNK [id number]) IV Assessment Peripheral Access Right Antecubital IV Catheter Access Initiated IV Insertion Date 07/18/25 IV Insertion Time 21:09 Catheter Gauge 20 IV Insertion 1 Attempts Ultrasound Used for No Placement IV Site Assessment WNL IV Care and WNL Maintenance PA: Gastrointestinal Assessment Start: 07/18/25 19:59 Freq: Status: Active Protocol: Document 07/18/25 20:48 HNK (Rec: 07/18/25 23:20 HNK [id number]) GI Assessment Gastrointestinal Focused Assessment Parameters Gastrointestinal Nausea,Pain Symptoms Description Distended,Firm,Round Pattern Constipated Flatus Absent Last Vital Signs Temperature 97.4 F L 07/18/25 20:02 Pulse Rate 89 07/19/25 01:17 Respiratory Rate 22 H 07/19/25 01:17 Pulse Oximetry 95 07/19/25 01:17 Blood Pressure 158/92 H 07/19/25 01:17 Blood Pressure Mean 114 07/19/25 01:17 Oxygen Delivery Room Air 07/18/25 20:02 Weight 106.5 kg 07/18/25 20:02 Last Result - Abnormals Only WBC 10.6 K/mm3 (4.5-10.0) H 07/18/25 21:05 Neut % (Auto) 85.9 % (45.5-73.1) H 07/18/25 21:05 Lymph % (Auto) 6.0 % (18.3-44.2) L 07/18/25 21:05 Lymph # (Auto) 0.63 K/mm3 (0.9-3.2) L 07/18/25 21:05 Bibb # (Auto) 0.8 K/mm3 (0.1-0.6) H 07/18/25 21:05 Absolute Neuts (auto) 9.1 K/mm3 (1.3-6.7) H 07/18/25 21:05 BUN 24 mg/dL (9-20) H D 07/18/25 21:05 Glucose 167 mg/dL (65-110) H 07/18/25 21:05 Lactic Acid 2.1 mmol/L (0.7-2.0) H 07/18/25 21:05 ALT 80 U/L (6-50) H 07/18/25 21:05 C-Reactive Protein 2.3 mg/dL (<1.0) H 07/18/25 21:05 Total Protein 8.5 g/dL (6.3-8.2) H 07/18/25 21:05 Lipase 2872 U/L (23-300) H 07/18/25 21:05 Most Recent Suicide Severity Rating Suicide Severity Rating NO RISK INDICATED 07/18/25 20:02
--- NOTE | 2025-07-19 01:35 | ADMGEN ---
This patient, Houston Bowers, was admitted to Medical Room 240-01. Patient/family oriented to hospital policies and general routines including ID bracelet, bed and alarms, visiting hours, pain management, procedures, bathroom and other care routines, personal items, smoking policy, room service/diet, and visiting hours. Information on how to activate the Rapid Response Team has been discussed. Patient/Family are encouraged to report perceived risks to care and to ask questions if they do not understand what they are told or what they should do.
[2025-07-19 02:26] LABS: Add Urine Microscopic? YES; Appearance Urine Cloudy (Clear); Glucose Urine UA Negative (Negative); Leukocyte Esterase Ur Negative LEU/UL (Negative); Nitrate Urine Negative (Negative); Non Pathogenic Casts 0-2; Specific Grav Ur > 1.045 (1.001-1.035)
[2025-07-19] MEDS: HYDROmorphone HCL INJ (*CRX) 1 MG/ML SYR 0.5 MG IV PUSH ×4 (02:26→21:00)
[2025-07-19 02:41] LABS: Cannabinoid Screen Urine Negative (Negative)
[2025-07-19 03:45] LABS: Hematocrit 44.6 % (42.0-52.0); Hemoglobin 15.1 g/dL (14.0-18.0); Mean Corpuscular HGB Conc 33.9 g/dl (32-36); Mean Corpuscular Hemoglobin 29.8 pg (26-34); Mean Corpuscular Volume 88.1 fl (80-100); Platelet Count Result 210 k/mm3 (150-375); Red Blood Count 5.06 M/mm3 (4.6-6.20); White Blood Count 6.7 K/mm3 (4.5-10.0)
[2025-07-19 04:05] LABS: Alanine Aminotransferase 74 U/L (6-50); Albumin Level 4.2 g/dL (3.5-5.1); Alkaline Phosphatase 57 U/L (38-126); Anion Gap 6 mmol/L (4-12); Aspartate Amino Transferase 51 U/L (17-59); Bilirubin,Total 1.0 mg/dL (0.2-1.3); Blood Urea Nitrogen 21 mg/dL (9-20); Calcium 8.8 mg/dL (8.4-10.2); Carbon Dioxide 23 mmol/L (22-30); Chloride 108 mmol/L (98-107); Estimated CRCL calculation 110 ml/min; Estimated Glomerular Filt Rate > 60; Glucose 133 mg/dL (65-110); Magnesium 1.8 mg/dL (1.6-2.3); Potassium 4.2 mmol/L (3.4-5.0); Sodium 137 mmol/L (137-145); Total Protein 7.1 g/dL (6.3-8.2)
[2025-07-19 05:29] LABS: Troponin I < 0.012 ng/mL (0.000-0.034)
--- NOTE | 2025-07-19 08:22 | P.PNIM_ITS ---
Assessment and Plan Assessment and Plan (1) SBO (small bowel obstruction): Code(s): K56.609 - Unspecified intestinal obstruction, unspecified as to partial versus complete obstruction Status: Acute (2) HTN (hypertension): Qualifiers: Hypertension type: unspecified Qualified Code(s): I10 - Essential (primary) hypertension Code(s): I10 - Essential (primary) hypertension Status: Acute (3) GERD (gastroesophageal reflux disease): Qualifiers: Esophagitis presence: with esophagitis Esophagitis bleeding: without hemorrhage Qualified Code(s): K21.00 - Gastro-esophageal reflux disease with esophagitis, without bleeding Code(s): K21.9 - Gastro-esophageal reflux disease without esophagitis Status: Acute (4) GERD with esophagitis: Code(s): K21.00 - Gastro-esophageal reflux disease with esophagitis, without bleeding Status: Acute (5) Metabolic dysfunction-associated steatotic liver disease (MASLD): Code(s): K76.0 - Fatty (change of) liver, not elsewhere classified Status: Acute Plan 55-year-old male presents [facility] on 07/18/2025 complaining of abdominal pain and inability to defecate for several days, decreased oral intake and decreased urine output. Abdominal pain is generalized and radiates to the back. He has a complicated history following hepatology at [facility] status post Quinton fundoplication in 2021 for severe acid reflux, postprocedure had C diff, since then has had alternating constipation and diarrhea. Hepatology note from [facility] documents MASLD Status post cholecystectomy. Also history of GERD, hypertension, anxiety and depression. Blood pressure 177/108 improved to 140 9/99 after Dilaudid/pain control. WBC 78222, serum creatinine 0.94, lactic acid 2.1, improved to 1.6. ALT 80, T bilirubin 1.2. CRP 2.3, lipase 2872. Serum alcohol level within normal limits. CT abdomen and pelvis with contrast demonstrates, transition point in the right lower quadrant. Patient received labetalol 10 mg IV x1, Protonix 40 mg IV x1, Zofran, morphine 4 mg IV x1, 1 L normal saline bolus. --- SBO -NG tube inserted. NPO. General surgery consulted. Normal saline at 125 cc/hour. Zofran and Dilaudid p.r.n.. Continue Protonix. -elevated lipase more likely due to vomiting/SBO. Pancreas appears normal on CT scan Elevated blood pressure -improved status post pain control. Labetalol 10 mg IV x1 given, continue to follow blood pressure trend. 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 antihypertensives. ---- 07/19 awaiting surgery consult -continue pain and nausea control NPO - BP this am 147/[address] at [facility], [place] 04/27/2025, DR Carlin -will add pain med for pain 4-6 Patient wishes to be full code SCDs Expected length of stay greater than 2 midnights Medical Record Review I have reviewed the following patient records and this information was taken into consideration when formulating the assessment and plan.: previous labs, previous ER visits and previous clinic visits Time Spent With Patient Time with patient: Greater than 35 minutes Subjective Date/time seen: 07/19/25 08:22 Interval history: 55-year-old male presents [facility] on 07/18/2025 complaining of abdominal pain and inability to defecate for several days, decreased oral intake and decreased urine output. Abdominal pain is generalized and radiates to the back. He has a complicated history following hepatology at [facility] status post Quinton fundoplication in 2021 for severe acid reflux, postprocedure had C diff, since then has had alternating constipation and diarrhea. Hepatology note from [facility] documents MASLD Status post cholecystectomy. Also history of GERD, hypertension, anxiety and depression. Blood pressure 177/108 improved to 140/99 after Dilaudid/pain control. WBC 88211, serum creatinine 0.94, lactic acid 2.1, improved to 1.6. ALT 80, T bilirubin 1.2. CRP 2.3, lipase 2872. Serum alcohol level within normal limits. CT abdomen and pelvis with contrast demonstrates, transition point in the right lower quadrant. Patient received labetalol 10 mg IV x1, Protonix 40 mg IV x1, Zofran, morphine 4 mg IV x1, 1 L normal saline bolus. 07/19 pt is seen and examined. NG tube in place. Awaiting for general surgery consult.Pain is tolerable. Review of Systems Review of Systems: All systems reviewed & are unremarkable except as noted in HPI and below (Subjective) Exam Const: General: comfortable and no acute distress Other: A&O x3 Eyes: Pupils: Equal, round and reactive pupils present Neck: Neck: supple Resp: Effort & Inspection: normal respiratory effort Auscultation: clear to auscultation bilaterally Cardio: Rate: regular rate Rhythm: regular rhythm GI: Other: Mild distension, no guarding, mild tenderness to deep palpation diffusely Neuro: Cranial nerves: Yes Equal, round and reactive pupils present Motor exam (neuro): 5/5 motor strength present throughout Extrem: General: no edema Objective Data Vital Signs Vital Signs: Vital Signs - 24 hr 07/18/25 20:02 07/18/25 20:45 07/18/25 21:00 Temperature 97.4 F L Pulse Rate 77 83 75 Respiratory Rate 18 18 18 Blood Pressure 177/108 H 160/116 H 164/102 H Pulse Oximetry 100 100 100 Oxygen Delivery Room Air 07/18/25 21:15 07/18/25 23:08 07/18/25 23:18 Temperature Pulse Rate 81 76 91 Respiratory Rate 22 H 18 20 Blood Pressure 162/119 H 152/121 H 153/113 H Pulse Oximetry 99 97 100 Oxygen Delivery 07/18/25 23:31 07/18/25 23:48 07/19/25 00:16 Temperature Pulse Rate 94 93 99 Respiratory Rate 20 18 19 Blood Pressure 155/100 H 153/96 H 136/92 H Pulse Oximetry 99 97 Oxygen Delivery 07/19/25 00:31 07/19/25 00:46 07/19/25 00:50 Temperature Pulse Rate 99 101 H 94 Respiratory Rate 22 H 20 Blood Pressure 149/99 H 150/100 H Pulse Oximetry 95 Oxygen Delivery 07/19/25 01:01 07/19/25 01:02 07/19/25 01:16 Temperature Pulse Rate 91 86 85 Respiratory Rate 20 20 20 Blood Pressure 142/83 H 158/92 H Pulse Oximetry 94 94 94 Oxygen Delivery 07/19/25 01:17 07/19/25 01:56 07/19/25 02:23 Temperature 97.1 F L Pulse Rate 89 84 Respiratory Rate 22 H 18 Blood Pressure 158/92 H 147/98 H Pulse Oximetry 95 97 Oxygen Delivery Room Air 07/19/25 04:25 Temperature 98.3 F Pulse Rate 89 Respiratory Rate 20 Blood Pressure 147/99 H Pulse Oximetry 97 Oxygen Delivery Intake/Output Intake/Output: Intake & Output 07/16/25 07/17/25 07/18/25 07/19/25 23:59 23:59 23:59 23:59 Intake Total 1000 Output Total 1175 Balance 1000 -1175 Meds/Results Medications: Active Medications Generic Name Dose Route Start Last Admin Trade Name Freq PRN Reason Stop Dose Admin Hydromorphone HCl 0.5 mg 07/19/25 02:17 07/19/25 02:26 Hydromorphone Hcl Inj (*Crx) 1 Mg/Ml Syr IV PUSH 0.5 mg Q3H PRN Administration Pain Rated 7-10 Sodium Chloride 1,000 mls @ 125 mls/hr 07/18/25 23:00 07/19/25 00:28 Normal Saline Iv IV CONT 125 mls/hr .Q8H CARMELO Administration Ondansetron HCl 4 mg 07/18/25 23:00 07/19/25 04:28 Ondansetron Inj 4 Mg/2 Ml Vial IV PUSH 4 mg Q4H PRN Administration Nausea Pantoprazole Sodium 40 mg 07/19/25 09:00 Pantoprazole Sodium Iv 40 Mg Vial IV PUSH QAM [facility] Radiology Results: ITS Impressions Abdomen/Pelvis CT 07/18/25 22:09 IMPRESSION: Findings suggestive of a small bowel obstruction. All CT scans at this facility are performed using low dose modulation techniques as appropriate to perform exam including the following: automated exposure control; use of iterative reconstruction technique; adjustment of the mA and/or kV according to patient size (this includes techniques or standardized protocols for targeted exams where dose is matched to indication/reason for exam). Abdomen X-Ray 07/18/25 22:51 IMPRESSION: Enteric tube terminates in the stomach. Small bowel obstruction is noted. Labs Labs: Laboratory Results - last 24 hr 07/18/25 07/18/25 07/19/25 21:05 23:27 02:10 WBC 10.6 H RBC 5.64 Hgb 16.9 D Hct 49.5 MCV 87.8 MCH 30.0 MCHC 34.1 RDW 12.8 Plt Count 272 MPV 9.0 Immature Gran % (Auto) 0.2 Neut % (Auto) 85.9 H Lymph % (Auto) 6.0 L Harvey % (Auto) 7.4 Eos % (Auto) 0.1 Baso % (Auto) 0.4 Lymph # (Auto) 0.63 L Harvey # (Auto) 0.8 H Eos # (Auto) 0.0 Baso # (Auto) 0.0 Abs Immat Gran (auto) 0.02 Absolute Neuts (auto) 9.1 H Absolute Nucleated RBC 0.000 Nucleated RBC % 0.0 PT 12.8 INR 0.9 APTT 28.0 Sodium 139 Potassium 4.0 Chloride 105 Carbon Dioxide 23 Anion Gap 11 BUN 24 H D Creatinine 0.94 Estim Creat Clear Calc 97 Estimated GFR > 60 Glucose 167 H Lactic Acid 2.1 H 1.6 Calcium 9.9 Magnesium 1.9 Total Bilirubin 1.2 AST 58 ALT 80 H Alkaline Phosphatase 71 Troponin I 0.014 C-Reactive Protein 2.3 H Total Protein 8.5 H Albumin 5.0 Lipase 2872 H TSH (Reflex) 0.822 Urine Color Yellow Urine Appearance Cloudy H Urine pH 8.0 Ur Specific [place] > 1.045 H Urine Protein Trace Urine Glucose (UA) Negative Urine Ketones 1+ H Ur Blood (Man) Negative Urine Nitrate Negative Urine Bilirubin Negative Urine Urobilinogen 1.0 Leukocyte Esterase Rfl Negative Urine RBC 0-2 Urine WBC 0-5 Ur Squamous Epith Cells None seen Urine Bacteria None seen Urine Casts 0-2 Urine Opiates Screen Positive A Urine Methadone Screen Negative Ur Barbiturates Screen Negative Ur Phencyclidine Scrn Negative Ur Amphetamine Screen Negative U Benzodiazepines Scrn Negative Urine Cocaine Screen Negative U Cannabinoids Screen Negative Ethyl Alcohol < 10 07/19/25 03:41 WBC 6.7 RBC 5.06 Hgb 15.1 Hct 44.6 MCV 88.1 MCH 29.8 MCHC 33.9 RDW 13.0 Plt Count 210 MPV 8.9 Immature Gran % (Auto) Neut % (Auto) Lymph % (Auto) Harvey % (Auto) Eos % (Auto) Baso % (Auto) Lymph # (Auto) [place] # (Auto) Eos # (Auto) Baso # (Auto) Abs Immat Gran (auto) Absolute Neuts (auto) Absolute Nucleated RBC Nucleated RBC % PT INR APTT Sodium 137 Potassium 4.2 Chloride 108 H Carbon Dioxide 23 Anion Gap 6 BUN 21 H Creatinine 0.83 Estim Creat Clear Calc 110 Estimated GFR > 60 Glucose 133 H Lactic Acid Calcium 8.8 Magnesium 1.8 Total Bilirubin 1.0 AST 51 ALT 74 H Alkaline Phosphatase 57 Troponin I < 0.012 C-Reactive Protein Total Protein 7.1 Albumin 4.2 Lipase TSH (Reflex) Urine Color Urine Appearance Urine pH Ur Specific [place] Urine Protein Urine Glucose (UA) Urine Ketones Ur Blood (Man) Urine Nitrate Urine Bilirubin Urine Urobilinogen Leukocyte Esterase Rfl Urine RBC Urine WBC Ur Squamous Epith Cells Urine Bacteria Urine Casts Urine Opiates Screen Urine Methadone Screen Ur Barbiturates Screen Ur Phencyclidine Scrn Ur Amphetamine Screen U Benzodiazepines Scrn Urine Cocaine Screen U Cannabinoids Screen Ethyl Alcohol
[2025-07-19] MEDS: PANTOPRAZOLE SODIUM IV 40 MG VIAL IV PUSH (08:24)
--- NOTE | 2025-07-19 11:02 | PM.CNGS ---
Assessment and Plan Assessment and plan (1) SBO (small bowel obstruction): Code(s): K56.609 - Unspecified intestinal obstruction, unspecified as to partial versus complete obstruction Status: Acute Assessment and Plan: CT showed SBO with transition in the RLQ. He still has a large amount of bilious NG output, but seems to be clinically improving with NG tube decompression. He has had previous abdominal surgery, but both were laparoscopic. This could be related to intraabdominal adhesions, but he also reports having intermittent obstructive symptoms over the past few years that resolves with bowel rest at home. Currently he is improving and his abdominal exam is benign. Will continue NG tube decompression, bowel rest, and IV fluids. Plan for water soluble small bowel follow through tomorrow morning. Will discuss with Dr. Maravilla possibly including an upper GI/esophagram given his complaints of dysphagia since his Quinton and gastric distention on CT. (2) Elevated lipase: Code(s): R74.8 - Abnormal levels of other serum enzymes Status: Acute Assessment and Plan: Lipase 2,872 on admission. No signs of pancreatitis on the CT scan. He is s/p cholecystectomy and LFTs are normal. Will repeat with morning labs. (3) Status post Quinton fundoplication: Code(s): Z98.890 - Other specified postprocedural states Status: Acute Assessment and Plan: 2021 laparoscopic Quinton fundoplication (4) Dysphagia: Code(s): R13.10 - Dysphagia, unspecified Status: Acute Assessment and Plan: Reports difficulty with foods and pills getting stuck at times. He has been evaluated by a Privacy Attorney at [facility] in the past few years but reportedly they released him from their care. (5) Fatty liver disease, nonalcoholic: Code(s): K76.0 - Fatty (change of) liver, not elsewhere classified Status: Acute Plan I have discussed the patient's case, recommendations, and treatment plan with Dr. Maravilla. History of Present Illness Consult details Consult date: 07/19/25 Reason for consult: other (Small bowel obstruction) Requesting physician: Priya Sanchez, NAJMA Narrative: This is a 55-year-old man with a history of anxiety, GERD and hiatal hernia s/p laparoscopic [place] fundop[place] [address] Zavala, who we have been asked to see in surgical consultation for a small-bowel obstruction. He reports having intermittent symptoms of diffuse abdominal pain, bloating, and sometimes dry heaving at home over the past 3 years since his Quinton fundoplication. His symptoms are typically more mild and pass with backing off his diet and monitoring his symptoms. He reports chronic nausea, dysphagia, and reflux symptoms that have been managed by a Privacy Attorney at [facility] following his Quinton. He reports having an upper endoscopy at an outlying facility in the past few years without any significant reported findings. This episode started yesterday morning around 10:30 am while at work. He developed generalized abdominal pain and bloating. He had nausea and dry heaving. Reports he has not been able to vomit since his fundoplication. His pain was worse than his typical symptoms and he came into the ER for evaluation. Labs showed WBC count 10,600, BUN 24, creatinine 0.94, and lactic acid 2.1 with repeat down to 1.6. Lipase 2,872. CT scan showed evidence of SBO with transition point in the RLQ. Pancreas with normal appearance. Patient admitted and NG tube placed. He is now seen and reports feeling much better this morning. His bloating and distention has improved. He had 700 cc out of the NG tube overnight and per patient the canister has been changed twice since admission. He reports some flatus this morning and had a very small BM early this am. Surgical history includes laparoscopic cholecystectomy and anterior approach lumbar fusion. No history of pancreatitis. Denies heavy alcohol use. Review of Systems Review of Systems: All systems reviewed & are unremarkable except as noted in HPI and below PMFSH Past Medical History Medical History Pancolitis Sinus drainage C. difficile colitis COVID-19 C. difficile colitis Erectile dysfunction Weight loss counseling, encounter for Fatty liver disease, nonalcoholic Bladder retention of urine Lower abdominal pain Vitamin D deficiency Other chronic pain Hypogonadism, male Gastroesophageal reflux disease without esophagitis Essential hypertension Encounter for screening for cardiovascular disorders Chronic bilateral low back pain without sciatica Cervical pain Acute non-recurrent maxillary sinusitis COVID-19 Hiatal hernia with GERD History of frequent headaches BMI 38.0-38.9,adult Screening PSA (prostate specific antigen) Depression Anxiety Abnormal CT scan Encounter for screening colonoscopy Hiatal hernia Complicated grieving GERD (gastroesophageal reflux disease) HTN (hypertension) Surgical History Surgical History Status post laparoscopic Quinton fundoplication 10/24/21 History of cervical spinal arthrodesis History of cholecystectomy History of sinus surgery History of shoulder surgery History of lumbar spinal fusion H/O sinus surgery History of shoulder surgery Family History Family History Other Cerebrovascular accident Family history of coronary artery disease Hypertension Social History Social History Social History: The patient works for [employer]. He lives with his and has 2 children. Lives with 2 dogs and 4 cats. He is a lifelong nonsmoker and does not use any alcohol marijuana or illicit drugs. Code status full code Smoking status: Never smoker Second hand tobacco smoke exposure: No Alcohol intake: current Alcohol use details: Very rarely. 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 Gender identity (if verbalized by the patient): Male Sexual Orientation (if Verbalized by the Patient): Straight or Heterosexual Spiritual care concerns: No Meds Home Medications and Allergies Home Medications ?Medication ?Instructions ?Recorded ?Confirmed ?Type loratadine 10 mg tablet (Claritin) 10 mg PO DAILY #30 tabs 07/21/22 07/19/25 Rx propranolol 20 mg tablet 20 mg PO BID 08/24/23 07/19/25 History topiramate 200 mg tablet 200 mg PO QAM 12/28/23 07/19/25 History rizatriptan 10 mg tablet See Rx Instructions .Route 11/18/24 07/19/25 Rx .COMPLEX #9 tabs methylphenidate HCl 18 mg 18 mg PO QAM PRN adhd 01/04/25 07/19/25 History tablet,extended release 24 hr (Concerta) trazodone 50 mg tablet 100 mg PO QHS PRN insomnia 01/04/25 07/19/25 History nortriptyline 10 mg capsule 10 mg PO DAILY 05/08/25 07/19/25 History baclofen 20 mg tablet See Rx Instructions .Route 05/15/25 07/19/25 Rx .COMPLEX #90 tabs alprazolam 0.5 mg tablet 0.5 mg PO TID PRN Anxiety #30 tabs 07/06/25 07/19/25 Rx topiramate 100 mg tablet 100 mg PO .afternoon 07/19/25 07/19/25 History Allergies Allergy/AdvReac Type Severity Reaction Status Date / Time hydrocodone (From [place]) AdvReac Severe Hypotension Verified 07/19/25 01:47 Vital Signs Vital Signs - 24 hr 07/18/25 20:02 07/18/25 20:45 07/18/25 21:00 Temperature 97.4 F L Pulse Rate 77 83 75 Respiratory Rate 18 18 18 Blood Pressure 177/108 H 160/116 H 164/102 H Pulse Oximetry 100 100 100 Oxygen Delivery Room Air 07/18/25 21:15 07/18/25 23:08 07/18/25 23:18 Temperature Pulse Rate 81 76 91 Respiratory Rate 22 H 18 20 Blood Pressure 162/119 H 152/121 H 153/113 H Pulse Oximetry 99 97 100 Oxygen Delivery 07/18/25 23:31 07/18/25 23:48 07/19/25 00:16 Temperature Pulse Rate 94 93 99 Respiratory Rate 20 18 19 Blood Pressure 155/100 H 153/96 H 136/92 H Pulse Oximetry 99 97 Oxygen Delivery 07/19/25 00:31 07/19/25 00:46 07/19/25 00:50 Temperature Pulse Rate 99 101 H 94 Respiratory Rate 22 H 20 Blood Pressure 149/99 H 150/100 H Pulse Oximetry 95 Oxygen Delivery 07/19/25 01:01 07/19/25 01:02 07/19/25 01:16 Temperature Pulse Rate 91 86 85 Respiratory Rate 20 20 20 Blood Pressure 142/83 H 158/92 H Pulse Oximetry 94 94 94 Oxygen Delivery 07/19/25 01:17 07/19/25 01:56 07/19/25 02:23 Temperature 97.1 F L Pulse Rate 89 84 Respiratory Rate 22 H 18 Blood Pressure 158/92 H 147/98 H Pulse Oximetry 95 97 Oxygen Delivery Room Air 07/19/25 04:25 07/19/25 08:25 Temperature 98.3 F Pulse Rate 89 Respiratory Rate 20 Blood Pressure 147/99 H Pulse Oximetry 97 Oxygen Delivery Room Air Exam Const: General: comfortable and no acute distress Nutritional Appearance: average body habitus Orientation/consciousness: patient oriented x3 HENMT: Head: normocephalic and atraumatic Ears: hearing grossly normal bilaterally Mouth: Yes moist mucous membranes Eyes: General: appearance normal, both eyes and all related structures Pupils: Equal, round and reactive pupils present Neck: Neck: normal visual inspection and full ROM Resp: Effort & Inspection: no respiratory distress Auscultation: clear to auscultation bilaterally Cardio: Rate: regular rate Rhythm: regular rhythm Peripheral pulses: Peripheral pulses 2+ throughout GI: Inspection: scar (small port site scars, suprapubic scar from lumbar fusion) and other (mildly distended) GI Palp: Yes Soft to palpation, No Tenderness to palpation present (GI), No Guarding due to palpation present (GI) and No Rebound tenderness present Percussion: Yes normal to percussion Auscultation: Hypoactive bowel sounds present Rectal Exam: deferred Skin: General skin exam: normal color Neuro: General: moves all extremities and no focal motor deficits Speech: normal speech Motor exam (neuro): 5/5 motor strength present throughout Extrem: General: normal to inspection and no edema Psych: Mental Status: mental status grossly normal Attitude: cooperative Insight: Good insight present (Psych) Judgement: Good judgement present (Psych) Results Labs 07/19/25 03:41 07/19/25 03:41 Labs: Abnormal lab results 07/18/25 07/19/25 07/19/25 Range/Units 21:05 02:10 03:41 WBC 10.6 H (4.5-10.0) K/mm3 Neut % (Auto) 85.9 H (45.5-73.1) % Lymph % (Auto) 6.0 L (18.3-44.2) % Lymph # (Auto) 0.63 L (0.9-3.2) K/mm3 [place] # (Auto) 0.8 H (0.1-0.6) K/mm3 Absolute Neuts (auto) 9.1 H (1.3-6.7) K/mm3 Chloride 108 H (98-107) mmol/L BUN 24 H D 21 H (9-20) mg/dL Glucose 167 H 133 H (65-110) mg/dL Lactic Acid 2.1 H (0.7-2.0) mmol/L ALT 80 H 74 H (6-50) U/L C-Reactive Protein 2.3 H (<1.0) mg/dL Total Protein 8.5 H (6.3-8.2) g/dL Lipase 2872 H (23-300) U/L Urine Appearance Cloudy H (Clear) Ur Specific [place] > 1.045 H (1.001-1.035) Urine Ketones 1+ H (Negative) mg/dL Urine Opiates Screen Positive A (Negative) Diabetes panel 07/18/25 07/19/25 Range/Units 21:05 03:41 Sodium 139 137 (137-145) mmol/L Potassium 4.0 4.2 (3.4-5.0) mmol/L Chloride 105 108 H (98-107) mmol/L Carbon Dioxide 23 23 (22-30) mmol/L BUN 24 H D 21 H (9-20) mg/dL Creatinine 0.94 0.83 (0.7-1.3) mg/dL Glucose 167 H 133 H (65-110) mg/dL Calcium 9.9 8.8 (8.4-10.2) mg/dL AST 58 51 (17-59) U/L ALT 80 H 74 H (6-50) U/L Alkaline Phosphatase 71 57 (38-126) U/L Total Protein 8.5 H 7.1 (6.3-8.2) g/dL Albumin 5.0 4.2 (3.5-5.1) g/dL Calcium panel 07/18/25 07/19/25 Range/Units 21:05 03:41 Calcium 9.9 8.8 (8.4-10.2) mg/dL Albumin 5.0 4.2 (3.5-5.1) g/dL Pituitary panel 07/18/25 07/19/25 Range/Units 21:05 03:41 Sodium 139 137 (137-145) mmol/L Potassium 4.0 4.2 (3.4-5.0) mmol/L Chloride 105 108 H (98-107) mmol/L Carbon Dioxide 23 23 (22-30) mmol/L BUN 24 H D 21 H (9-20) mg/dL Creatinine 0.94 0.83 (0.7-1.3) mg/dL Glucose 167 H 133 H (65-110) mg/dL Calcium 9.9 8.8 (8.4-10.2) mg/dL Adrenal panel 07/18/25 07/19/25 Range/Units 21:05 03:41 Sodium 139 137 (137-145) mmol/L Potassium 4.0 4.2 (3.4-5.0) mmol/L Chloride 105 108 H (98-107) mmol/L Carbon Dioxide 23 23 (22-30) mmol/L BUN 24 H D 21 H (9-20) mg/dL Creatinine 0.94 0.83 (0.7-1.3) mg/dL Glucose 167 H 133 H (65-110) mg/dL Calcium 9.9 8.8 (8.4-10.2) mg/dL Total Bilirubin 1.2 1.0 (0.2-1.3) mg/dL AST 58 51 (17-59) U/L ALT 80 H 74 H (6-50) U/L Alkaline Phosphatase 71 57 (38-126) U/L Total Protein 8.5 H 7.1 (6.3-8.2) g/dL Albumin 5.0 4.2 (3.5-5.1) g/dL All other labs normal. Imaging Additional studies: ITS Impressions Abdomen/Pelvis CT 07/18/25 22:09 IMPRESSION: Findings suggestive of a small bowel obstruction. All CT scans at this facility are performed using low dose modulation techniques as appropriate to perform exam including the following: automated exposure control; use of iterative reconstruction technique; adjustment of the mA and/or kV according to patient size (this includes techniques or standardized protocols for targeted exams where dose is matched to indication/reason for exam). Abdomen X-Ray 07/18/25 22:51 IMPRESSION: Enteric tube terminates in the stomach. Small bowel obstruction is noted.
[2025-07-19] MEDS: BISACODYL 10 MG SUPPOSITORY RECTAL (14:16)
[2025-07-20] MEDS: ONDANSETRON INJ 4 MG/2 ML VIAL IV PUSH ×5 (00:55→20:13)
[2025-07-20] MEDS: SODIUM CHLORIDE 0.9% IV 1,000 ML 125 ML IV CONT ×3 (03:50→20:14)
[2025-07-20 04:50] VITALS: BP 141/92; PULSE 90; RESP 18; TEMP 36.3; O2SAT 96
[2025-07-20 05:40] LABS: Anion Gap 6 mmol/L (4-12); Blood Urea Nitrogen 17 mg/dL (9-20); Calcium 8.3 mg/dL (8.4-10.2); Carbon Dioxide 20 mmol/L (22-30); Chloride 112 mmol/L (98-107); Estimated CRCL calculation 114 ml/min; Estimated Glomerular Filt Rate > 60; Glucose 104 mg/dL (65-110); Hematocrit 41.3 % (42.0-52.0); Hemoglobin 13.8 g/dL (14.0-18.0); Mean Corpuscular HGB Conc 33.4 g/dl (32-36); Mean Corpuscular Hemoglobin 30.1 pg (26-34); Mean Corpuscular Volume 90.2 fl (80-100); Platelet Count Result 209 k/mm3 (150-375); Potassium 3.7 mmol/L (3.4-5.0); Red Blood Count 4.58 M/mm3 (4.6-6.20); Sodium 138 mmol/L (137-145); White Blood Count 6.1 K/mm3 (4.5-10.0)
[2025-07-20] MEDS: KETOROLAC 15 MG/ML VIAL (*BKC) IV PUSH ×2 (06:52→20:13)
[2025-07-20] MEDS: PANTOPRAZOLE SODIUM IV 40 MG VIAL IV PUSH (08:33)
--- NOTE | 2025-07-20 09:55 | PM.IMPN2 ---
Assessment and Plan Assessment and Plan (1) SBO (small bowel obstruction): Code(s): K56.609 - Unspecified intestinal obstruction, unspecified as to partial versus complete obstruction Status: Acute (2) HTN (hypertension): Qualifiers: Hypertension type: unspecified Qualified Code(s): I10 - Essential (primary) hypertension Code(s): I10 - Essential (primary) hypertension Status: Acute (3) GERD (gastroesophageal reflux disease): Qualifiers: Esophagitis bleeding: without hemorrhage Esophagitis presence: with esophagitis Qualified Code(s): K21.00 - Gastro-esophageal reflux disease with esophagitis, without bleeding Code(s): K21.9 - Gastro-esophageal reflux disease without esophagitis Status: Acute (4) GERD with esophagitis: Code(s): K21.00 - Gastro-esophageal reflux disease with esophagitis, without bleeding Status: Acute (5) Metabolic dysfunction-associated steatotic liver disease (MASLD): Code(s): K76.0 - Fatty (change of) liver, not elsewhere classified Status: Acute Plan 55-year-old male presents [facility] on 07/18/2025 complaining of abdominal pain and inability to defecate for several days, decreased oral intake and decreased urine output. Abdominal pain is generalized and radiates to the back. He has a complicated history following hepatology at [facility] status post [place] fundoplication in 2021 for severe acid reflux, postprocedure had C diff, since then has had alternating constipation and diarrhea. Hepatology note from [facility] documents MASLD Status post cholecystectomy. Also history of GERD, hypertension, anxiety and depression. Blood pressure 177/108 improved to 140 9/99 after Dilaudid/pain control. WBC 48075, serum creatinine 0.94, lactic acid 2.1, improved to 1.6. ALT 80, T bilirubin 1.2. CRP 2.3, lipase 2872. Serum alcohol level within normal limits. CT abdomen and pelvis with contrast demonstrates, transition point in the right lower quadrant. Patient received labetalol 10 mg IV x1, Protonix 40 mg IV x1, Zofran, morphine 4 mg IV x1, 1 L normal saline bolus. --- SBO -NG tube inserted. NPO. General surgery consulted. Normal saline at 125 cc/hour. Zofran and Dilaudid p.r.n.. Continue Protonix. -elevated lipase more likely due to vomiting/SBO. Pancreas appears normal on CT scan Elevated blood pressure -improved status post pain control. Labetalol 10 mg IV x1 given, continue to follow blood pressure trend. 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 ---- 07/19 awaiting surgery consult -continue pain and nausea control NPO - BP this am 147/99 following with hepatology at [facility], [place] 04/27/2025, DR Carlin -will add pain med for pain 4-6 07/20 surgery is following- appreciate recommendations Will allow ice chips with NG tube this time to help with some of NG discomfort. - Dulcolax suppository. - Gastrografin small-bowel follow-through today. - pain is well controlled - wbc downtrending 6.1 (10.6 yesterday) Patient wishes to be full code SCDs Expected length of stay greater than 2 midnights Subjective Date/time seen: 07/20/25 09:55 Interval history: 55-year-old male presents [facility] on 07/18/2025 complaining of abdominal pain and inability to defecate for several days, decreased oral intake and decreased urine output. Abdominal pain is generalized and radiates to the back. He has a complicated history following hepatology at [facility] status post [place] fundoplication in 2021 for severe acid reflux, postprocedure had C diff, since then has had alternating constipation and diarrhea. Hepatology note from [facility] documents MASLD Status post cholecystectomy. Also history of GERD, hypertension, anxiety and depression. Blood pressure 177/108 improved to 140/99 after Dilaudid/pain control. WBC 27074, serum creatinine 0.94, lactic acid 2.1, improved to 1.6. ALT 80, T bilirubin 1.2. CRP 2.3, lipase 2872. Serum alcohol level within normal limits. CT abdomen and pelvis with contrast demonstrates, transition point in the right lower quadrant. Patient received labetalol 10 mg IV x1, Protonix 40 mg IV x1, Zofran, morphine 4 mg IV x1, 1 L normal saline bolus. 07/19 pt is seen and examined. NG tube in place. Awaiting for general surgery consult.Pain is tolerable. 07/20 pt is doing well this am, Gastrografin small-bowel follow-through today. Ok to have ice chips per surgery. pain is controlled, no nausea, NG tube in place Review of Systems Review of Systems: All systems reviewed & are unremarkable except as noted in HPI and below (Subjective) Exam Const: General: comfortable and no acute distress Other: A&O x3 Eyes: Pupils: Equal, round and reactive pupils present Neck: Neck: supple Resp: Effort & Inspection: normal respiratory effort Auscultation: clear to auscultation bilaterally Cardio: Rate: regular rate Rhythm: regular rhythm GI: Other: Mild distension, no guarding, mild tenderness to deep palpation diffusely Neuro: Cranial nerves: Yes Equal, round and reactive pupils present Motor exam (neuro): 5/5 motor strength present throughout Extrem: General: no edema Objective Data Vital Signs Vital Signs: Vital Signs - 24 hr 07/19/25 14:00 07/19/25 19:40 07/19/25 20:42 Temperature 98.5 F 98.6 F Pulse Rate 78 74 Respiratory Rate 19 18 Blood Pressure 132/83 143/80 H Pulse Oximetry 99 97 Oxygen Delivery Room Air 07/20/25 04:50 07/20/25 08:30 Temperature 97.3 F L Pulse Rate 90 Respiratory Rate 18 Blood Pressure 141/92 H Pulse Oximetry 96 Oxygen Delivery Room Air Intake/Output Intake/Output: Intake & Output 07/17/25 07/18/25 07/19/25 07/20/25 23:59 23:59 23:59 23:59 Intake Total 1000 1995.8 1100 Output Total 1776 775 Balance 1000 219.8 325 Meds/Results Medications: Active Medications Generic Name Dose Route Start Last Admin Trade Name Freq PRN Reason Stop Dose Admin Hydromorphone HCl 0.5 mg 07/19/25 02:17 07/19/25 21:00 Hydromorphone Hcl Inj (*Crx) 1 Mg/Ml Syr IV PUSH 0.5 mg Q3H PRN Administration Pain Rated 7-10 Sodium Chloride 1,000 mls @ 125 mls/hr 07/18/25 23:00 07/20/25 03:50 Normal Saline Iv IV CONT 125 mls/hr .Q8H CARMELO Administration Ketorolac Tromethamine 15 mg 07/19/25 14:20 07/20/25 06:52 Ketorolac 15 Mg/Ml Vial (*Bkc) IV PUSH 15 mg Q6H PRN Administration Pain Rated 4-6 Ondansetron HCl 4 mg 07/18/25 23:00 07/20/25 08:33 Ondansetron Inj 4 Mg/2 Ml Vial IV PUSH 4 mg Q4H PRN Administration Nausea Pantoprazole Sodium 40 mg 07/19/25 09:00 07/20/25 08:33 Pantoprazole Sodium Iv 40 Mg Vial IV PUSH 40 mg QAM CARMELO Administration Radiology Results: ITS Impressions Abdomen/Pelvis CT 07/18/25 22:09 IMPRESSION: Findings suggestive of a small bowel obstruction. All CT scans at this facility are performed using low dose modulation techniques as appropriate to perform exam including the following: automated exposure control; use of iterative reconstruction technique; adjustment of the mA and/or kV according to patient size (this includes techniques or standardized protocols for targeted exams where dose is matched to indication/reason for exam). Labs Labs: Laboratory Results - last 24 hr 07/20/25 04:46 WBC 6.1 RBC 4.58 L Hgb 13.8 L Hct 41.3 L MCV 90.2 MCH 30.1 MCHC 33.4 RDW 12.8 Plt Count 209 MPV 10.3 Sodium 138 Potassium 3.7 Chloride 112 H Carbon Dioxide 20 L Anion Gap 6 BUN 17 Creatinine 0.80 Estim Creat Clear Calc 114 Estimated GFR > 60 Glucose 104 Calcium 8.3 L
[2025-07-20] MEDS: HYDROmorphone HCL INJ (*CRX) 1 MG/ML SYR 0.5 MG IV PUSH (12:32)
[2025-07-20 12:59] LABS: Lipase 62 U/L (23-300)
--- NOTE | 2025-07-20 13:02 | P.PNGS_ITS ---
Progress Note: A&P Assessment and Plan (1) SBO (small bowel obstruction): Code(s): K56.609 - Unspecified intestinal obstruction, unspecified as to partial versus complete obstruction Status: Acute Assessment and Plan: * Small bowel series was normal this morning with transit time of 45 minutes. Patient has had multiple bowel movements. However, patient is still experiencing nausea and abdominal pain. He feels as though the nausea is coming from the back of his throat. Will remove NG as obstruction is resolved. Clear liquid diet ordered. If patient continues to have nausea and abdominal pain we may need to consider GI consult. (2) Elevated lipase: Code(s): R74.8 - Abnormal levels of other serum enzymes Status: Acute Assessment and Plan: * Lipase normalized to 62 today. No signs of pancreatitis on the CT scan. He is s/p cholecystectomy and LFTs are normal. (3) Status post [place] fundoplication: Code(s): Z98.890 - Other specified postprocedural states Status: Acute Assessment and Plan: * 2021 laparoscopic [place] fundoplication (4) Dysphagia: Code(s): R13.10 - Dysphagia, unspecified Status: Acute Assessment and Plan: * Reports difficulty with foods and pills getting stuck at times. He has been evaluated by a Plant Protection Guard, Dr. Smallwood, at [facility] in the past few years but reportedly they released him from their care. (5) Fatty liver disease, nonalcoholic: Code(s): K76.0 - Fatty (change of) liver, not elsewhere classified Status: Acute Plan I have discussed the patient's case, recommendations, and treatment plan with Dr. Maravilla. Subjective Subjective Date/Time Seen: 07/20/25 13:02 Patient reports: bowel movement, nausea, vomiting and afebrile Interval history: Patient seen after small bowel follow through today. The study went well and showed normal transit. However, patient was having some nausea and retching after the study. He said he felt like this was coming from the back of his throat. He also endorses still having abdominal pain. Exam Const: General: uncomfortable Other: Spitting into emesis bag upon my interview GI: Inspection: non-distended GI Palp: Yes Soft to palpation and Yes Tenderness to palpation present (GI) (diffusely) Objective Data Vital Signs Vital Signs: Vital Signs - 24 hr 07/19/25 14:00 07/19/25 19:40 07/19/25 20:42 Temperature 98.5 F 98.6 F Pulse Rate 78 74 Respiratory Rate 19 18 Blood Pressure 132/83 143/80 H Pulse Oximetry 99 97 Oxygen Delivery Room Air 07/20/25 04:50 07/20/25 08:30 Temperature 97.3 F L Pulse Rate 90 Respiratory Rate 18 Blood Pressure 141/92 H Pulse Oximetry 96 Oxygen Delivery Room Air Intake/Output Intake/Output: Intake & Output 07/17/25 07/18/25 07/19/25 07/20/25 23:59 23:59 23:59 23:59 Intake Total 1000 1995.8 2100 Output Total 1776 775 Balance 1000 219.8 1325 Meds/Results Medications: Active Medications Generic Name Dose Route Start Last Admin Trade Name Freq PRN Reason Stop Dose Admin Hydromorphone HCl 0.5 mg 07/19/25 02:17 07/20/25 12:32 Hydromorphone Hcl Inj (*Crx) 1 Mg/Ml Syr IV PUSH 0.5 mg Q3H PRN Administration Pain Rated 7-10 Sodium Chloride 1,000 mls @ 125 mls/hr 07/18/25 23:00 07/20/25 12:36 Normal Saline Iv IV CONT 125 mls/hr .Q8H CARMELO Administration Ketorolac Tromethamine 15 mg 07/19/25 14:20 07/20/25 06:52 Ketorolac 15 Mg/Ml Vial (*Bkc) IV PUSH 15 mg Q6H PRN Administration Pain Rated 4-6 Ondansetron HCl 4 mg 07/18/25 23:00 07/20/25 12:32 Ondansetron Inj 4 Mg/2 Ml Vial IV PUSH 4 mg Q4H PRN Administration Nausea Pantoprazole Sodium 40 mg 07/19/25 09:00 07/20/25 08:33 Pantoprazole Sodium Iv 40 Mg Vial IV PUSH 40 mg QAM CARMELO Administration Radiology Results: ITS Impressions Abdomen/Pelvis CT 07/18/25 22:09 IMPRESSION: Findings suggestive of a small bowel obstruction. All CT scans at this facility are performed using low dose modulation techn iques as appropriate to perform exam including the following: automated exposure control; use of iterative reconstruction technique; adjustment of the mA and/or kV according to patient size (this includes techniques or standardized protocols for targeted exams where dose is matched to indication/reason for exam). Small Bowel X-Ray 07/20/25 10:33 IMPRESSION: 1. Normal small bowel follow-through study with small bowel transit time of 45 minutes. Labs Labs: Laboratory Results - last 24 hr 07/20/25 04:46 WBC 6.1 RBC 4.58 L Hgb 13.8 L Hct 41.3 L MCV 90.2 MCH 30.1 MCHC 33.4 RDW 12.8 Plt Count 209 MPV 10.3 Sodium 138 Potassium 3.7 Chloride 112 H Carbon Dioxide 20 L Anion Gap 6 BUN 17 Creatinine 0.80 Estim Creat Clear Calc 114 Estimated GFR > 60 Glucose 104 Calcium 8.3 L Lipase 62
[2025-07-20 14:00] VITALS: BP 153/100; PULSE 82; RESP 20; TEMP 36.5; O2SAT 100
[2025-07-20 19:55] VITALS: BP 143/90; PULSE 84; RESP 20; TEMP 36.7; O2SAT 100
[2025-07-20] MEDS: SIMETHICONE 80 MG TAB.CHEW PO (22:47)
[2025-07-20 23:30] VITALS: O2SAT 100
[2025-07-21] MEDS: ONDANSETRON INJ 4 MG/2 ML VIAL IV PUSH ×4 (02:49→21:04)
[2025-07-21] MEDS: SODIUM CHLORIDE 0.9% IV 1,000 ML 125 ML IV CONT ×3 (05:06→21:12)
[2025-07-21 05:28] VITALS: BP 152/83; PULSE 62; RESP 18; TEMP 36.7; O2SAT 100
[2025-07-21] MEDS: PANTOPRAZOLE SODIUM IV 40 MG VIAL IV PUSH (08:05)
--- NOTE | 2025-07-21 11:11 | PM.IMPN2 ---
Assessment and Plan Assessment and Plan (1) SBO (small bowel obstruction): Code(s): K56.609 - Unspecified intestinal obstruction, unspecified as to partial versus complete obstruction Status: Acute (2) HTN (hypertension): Qualifiers: Hypertension type: unspecified Qualified Code(s): I10 - Essential (primary) hypertension Code(s): I10 - Essential (primary) hypertension Status: Acute (3) GERD (gastroesophageal reflux disease): Qualifiers: Esophagitis bleeding: without hemorrhage Esophagitis presence: with esophagitis Qualified Code(s): K21.00 - Gastro-esophageal reflux disease with esophagitis, without bleeding Code(s): K21.9 - Gastro-esophageal reflux disease without esophagitis Status: Acute (4) GERD with esophagitis: Code(s): K21.00 - Gastro-esophageal reflux disease with esophagitis, without bleeding Status: Acute (5) Metabolic dysfunction-associated steatotic liver disease (MASLD): Code(s): K76.0 - Fatty (change of) liver, not elsewhere classified Status: Acute Plan 55-year-old male presents [facility] on 07/18/2025 complaining of abdominal pain and inability to defecate for several days, decreased oral intake and decreased urine output. Abdominal pain is generalized and radiates to the back. He has a complicated history following hepatology at [facility] status post [place] fundoplication in 2021 for severe acid reflux, postprocedure had C diff, since then has had alternating constipation and diarrhea. Hepatology note from [facility] documents MASLD Status post cholecystectomy. Also history of GERD, hypertension, anxiety and depression. Blood pressure 177/108 improved to 140 9/99 after Dilaudid/pain control. WBC 71921, serum creatinine 0.94, lactic acid 2.1, improved to 1.6. ALT 80, T bilirubin 1.2. CRP 2.3, lipase 2872. Serum alcohol level within normal limits. CT abdomen and pelvis with contrast demonstrates, transition point in the right lower quadrant. Patient received labetalol 10 mg IV x1, Protonix 40 mg IV x1, Zofran, morphine 4 mg IV x1, 1 L normal saline bolus. --- SBO -NG tube inserted. NPO. General surgery consulted. Normal saline at 125 cc/hour. Zofran and Dilaudid p.r.n.. Continue Protonix. -elevated lipase more likely due to vomiting/SBO. Pancreas appears normal on CT scan Elevated blood pressure -improved status post pain control. Labetalol 10 mg IV x1 given, continue to follow blood pressure trend. 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 ---- 07/19 awaiting surgery consult -continue pain and nausea control NPO - BP this am 147/99 following with hepatology at [facility], [place] 04/27/2025, DR Carlin -will add pain med for pain 4-6 07/20 surgery is following- appreciate recommendations Will allow ice chips with NG tube this time to help with some of NG discomfort. - Dulcolax suppository. - Gastrografin small-bowel follow-through today. - pain is well controlled - wbc downtrending 6.1 (10.6 yesterday) 07/21 NG was removed yesterday, he is doing better, anxious this am. he normally takes xanax at home as needed.will reorder. Clear liquid ordered per surgery. - nausea- surgery will consult GI? Patient wishes to be full code SCDs Expected length of stay greater than 2 midnights Subjective Date/time seen: 07/21/25 11:11 Interval history: 55-year-old male presents [facility] on 07/18/2025 complaining of abdominal pain and inability to defecate for several days, decreased oral intake and decreased urine output. Abdominal pain is generalized and radiates to the back. He has a complicated history following hepatology at [facility] status post [place] fundoplication in 2021 for severe acid reflux, postprocedure had C diff, since then has had alternating constipation and diarrhea. Hepatology note from [facility] documents MASLD Status post cholecystectomy. Also history of GERD, hypertension, anxiety and depression. Blood pressure 177/108 improved to 140/99 after Dilaudid/pain control. WBC 60242, serum creatinine 0.94, lactic acid 2.1, improved to 1.6. ALT 80, T bilirubin 1.2. CRP 2.3, lipase 2872. Serum alcohol level within normal limits. CT abdomen and pelvis with contrast demonstrates, transition point in the right lower quadrant. Patient received labetalol 10 mg IV x1, Protonix 40 mg IV x1, Zofran, morphine 4 mg IV x1, 1 L normal saline bolus. 07/19 pt is seen and examined. NG tube in place. Awaiting for general surgery consult.Pain is tolerable. 07/20 pt is doing well this am, Gastrografin small-bowel follow-through today. Ok to have ice chips per surgery. pain is controlled, no nausea, NG tube in place 07/21 NG was removed yesterday, he is doing better, anxious this am. he normally takes xanax at home as needed. Clear liquid ordered per surgery. Reports nausea but states it is a chronic problem for him. Review of Systems Review of Systems: All systems reviewed & are unremarkable except as noted in HPI and below (Subjective) Exam Const: General: comfortable and no acute distress Other: A&O x3 Eyes: Pupils: Equal, round and reactive pupils present Neck: Neck: supple Resp: Effort & Inspection: normal respiratory effort Auscultation: clear to auscultation bilaterally Cardio: Rate: regular rate Rhythm: regular rhythm GI: GI Palp: Yes Soft to palpation Auscultation: normal bowel sounds Neuro: Cranial nerves: Yes Equal, round and reactive pupils present Motor exam (neuro): 5/5 motor strength present throughout Extrem: General: no edema Objective Data Vital Signs Vital Signs: Vital Signs - 24 hr 07/20/25 14:00 07/20/25 19:55 07/20/25 20:05 Temperature 97.7 F 98.0 F Pulse Rate 82 84 Respiratory Rate 20 20 Blood Pressure 153/100 H 143/90 H Pulse Oximetry 100 100 Oxygen Delivery Room Air 07/20/25 23:30 07/21/25 05:28 07/21/25 08:00 Temperature 98.1 F Pulse Rate 62 Respiratory Rate 18 Blood Pressure 152/83 H Pulse Oximetry 100 100 Oxygen Delivery Room Air Room Air Intake/Output Intake/Output: Intake & Output 07/18/25 07/19/25 07/20/25 07/21/25 23:59 23:59 23:59 23:59 Intake Total 1000 1995.8 3934.2 1000 Output Total 1776 1400 Balance 1000 219.8 2534.2 1000 Meds/Results Medications: Active Medications Generic Name Dose Route Start Last Admin Trade Name Freq PRN Reason Stop Dose Admin Alprazolam 0.5 mg 07/21/25 10:54 Alprazolam (*Crx) 0.5 Mg Tablet PO TID PRN Anxiety Hydromorphone HCl 0.5 mg 07/19/25 02:17 07/20/25 12:32 Hydromorphone Hcl Inj (*Crx) 1 Mg/Ml Syr IV PUSH 0.5 mg Q3H PRN Administration Pain Rated 7-10 Sodium Chloride 1,000 mls @ 125 mls/hr 07/18/25 23:00 07/21/25 05:06 Normal Saline Iv IV CONT 125 mls/hr .Q8H CARMELO Administration Ketorolac Tromethamine 15 mg 07/19/25 14:20 07/20/25 20:13 Ketorolac 15 Mg/Ml Vial (*Bkc) IV PUSH 15 mg Q6H PRN Administration Pain Rated 4-6 Ondansetron HCl 4 mg 07/18/25 23:00 07/21/25 08:05 Ondansetron Inj 4 Mg/2 Ml Vial IV PUSH 4 mg Q4H PRN Administration Nausea Pantoprazole Sodium 40 mg 07/19/25 09:00 07/21/25 08:05 Pantoprazole Sodium Iv 40 Mg Vial IV PUSH 40 mg QAM CARMELO Administration Simethicone 80 mg 07/20/25 22:26 07/20/25 22:47 Simethicone 80 Mg Tab.Chew PO 80 mg QID PRN Administration Gas Discomfort Radiology Results: ITS Impressions Abdomen/Pelvis CT 07/18/25 22:09 IMPRESSION: Findings suggestive of a small bowel obstruction. All CT scans at this facility are performed using low dose modulation techniques as appropriate to perform exam including the following: automated exposure control; use of iterative reconstruction technique; adjustment of the mA and/or kV according to patient size (this includes techniques or standardized protocols for targeted exams where dose is matched to indication/reason for exam). Small Bowel X-Ray 07/20/25 10:33 IMPRESSION: 1. Normal small bowel follow-through study with small bowel transit time of 45 minutes. Labs Labs: Laboratory Results - last 24 hr 07/20/25 04:46 Lipase 62
[2025-07-21] MEDS: ALPRAZolam (*CRX) 0.5 MG TABLET PO (11:30)
[2025-07-21 14:00] VITALS: BP 148/84; PULSE 68; RESP 18; TEMP 36.8; O2SAT 100
--- NOTE | 2025-07-21 15:08 | P.PNGS_ITS ---
Progress Note: A&P Assessment and Plan (1) SBO (small bowel obstruction): Code(s): K56.609 - Unspecified intestinal obstruction, unspecified as to partial versus complete obstruction Status: Acute Assessment and Plan: * Patient has continued to have bowel movements since small bowel series yesterday. Obstruction seems to have resolved. General surgery team will sign off at this time. * Patient was given a clear liquid diet yesterday. He became nauseous overnight and hospitalist team backed him down to NPO status. Patient states that he is still having abdominal pain, mostly epigastric. Patient follows with outside GI team as an outpatient and has appointment scheduled for next week. If patient continues to have pain and is unable to tolerate anything by mouth, may consider GI consult while patient is inpatient. (2) Elevated lipase: Code(s): R74.8 - Abnormal levels of other serum enzymes Status: Acute Assessment and Plan: * Lipase normalized to 62. No signs of pancreatitis on the CT scan. He is s/p cholecystectomy and LFTs are normal. (3) Status post Quinton fundoplication: Code(s): Z98.890 - Other specified postprocedural states Status: Acute Assessment and Plan: * 2021 laparoscopic Quinton fundoplication (4) Dysphagia: Code(s): R13.10 - Dysphagia, unspecified Status: Acute Assessment and Plan: * Reports difficulty with foods and pills getting stuck at times. He has been evaluated by a Bag Making Machine Tender, Dr. Smallwood, at [facility] in the past few years but reportedly they released him from their care. (5) Fatty liver disease, nonalcoholic: Code(s): K76.0 - Fatty (change of) liver, not elsewhere classified Status: Acute Plan I have discussed the patient's case, recommendations, and treatment plan with Dr. Maravilla. Subjective Subjective Date/Time Seen: 07/21/25 15:08 Patient reports: no new complaints, diarrhea, nausea and afebrile Interval history: The patient was unable to tolerated clear liquid diet as he became very nauseous overnight. He was backed down to NPO by hospitalist team. Patient states that he is still having epigastric pain. Bowels are moving. Exam Const: General: comfortable and no acute distress GI: Inspection: non-distended GI Palp: Yes Soft to palpation, Yes Tenderness to palpation present (GI) (epigastric region) and No Guarding due to palpation present (GI) Auscultation: normal bowel sounds Skin: General skin exam: normal color and no rashes or lesions noted Objective Data Vital Signs Vital Signs: Vital Signs - 24 hr 07/20/25 19:55 07/20/25 20:05 07/20/25 23:30 Temperature 98.0 F Pulse Rate 84 Respiratory Rate 20 Blood Pressure 143/90 H Pulse Oximetry 100 100 Oxygen Delivery Room Air Room Air 07/21/25 05:28 07/21/25 08:00 07/21/25 14:00 Temperature 98.1 F 98.2 F Pulse Rate 62 68 Respiratory Rate 18 18 Blood Pressure 152/83 H 148/84 H Pulse Oximetry 100 100 Oxygen Delivery Room Air Intake/Output Intake/Output: Intake & Output 07/18/25 07/19/25 07/20/25 07/21/25 23:59 23:59 23:59 23:59 Intake Total 1000 1995.8 3934.2 2000 Output Total 1776 1400 250 Balance 1000 219.8 2534.2 1750 Meds/Results Medications: Active Medications Generic Name Dose Route Start Last Admin Trade Name Freq PRN Reason Stop Dose Admin Alprazolam 0.5 mg 07/21/25 10:54 07/21/25 11:30 Alprazolam (*Crx) 0.5 Mg Tablet PO 0.5 mg TID PRN Administration Anxiety Hydromorphone HCl 0.5 mg 07/19/25 02:17 07/20/25 12:32 Hydromorphone Hcl Inj (*Crx) 1 Mg/Ml Syr IV PUSH 0.5 mg Q3H PRN Administration Pain Rated 7-10 Sodium Chloride 1,000 mls @ 125 mls/hr 07/18/25 23:00 07/21/25 14:01 Normal Saline Iv IV CONT 125 mls/hr .Q8H CARMELO Administration Ketorolac Tromethamine 15 mg 07/19/25 14:20 07/20/25 20:13 Ketorolac 15 Mg/Ml Vial (*Bkc) IV PUSH 15 mg Q6H PRN Administration Pain Rated 4-6 Ondansetron HCl 4 mg 07/18/25 23:00 07/21/25 08:05 Ondansetron Inj 4 Mg/2 Ml Vial IV PUSH 4 mg Q4H PRN Administration Nausea Pantoprazole Sodium 40 mg 07/19/25 09:00 07/21/25 08:05 Pantoprazole Sodium Iv 40 Mg Vial IV PUSH 40 mg QAM CARMELO Administration Simethicone 80 mg 07/20/25 22:26 07/20/25 22:47 Simethicone 80 Mg Tab.Chew PO 80 mg QID PRN Administration Gas Discomfort Radiology Results: ITS Impressions Abdomen/Pelvis CT 07/18/25 22:09 IMPRESSION: Findings suggestive of a small bowel obstruction. All CT scans at this facility are performed using low dose modulation techniques as appropriate to perform exam including the following: automated exposure control; use of iterative reconstruction technique; adjustment of the mA and/or kV according to patient size (this includes techniques or standardized protocols for targeted exams where dose is matched to indication/reason for exam). Small Bowel X-Ray 07/20/25 10:33 IMPRESSION: 1. Normal small bowel follow-through study with small bowel transit time of 45 minutes.
[2025-07-21] MEDS: HYDROmorphone HCL INJ (*CRX) 1 MG/ML SYR 0.5 MG IV PUSH ×2 (16:18→21:04)
[2025-07-21 20:35] VITALS: BP 156/84; PULSE 75; RESP 18; TEMP 36.6; O2SAT 100
[2025-07-22] MEDS: ALPRAZolam (*CRX) 0.5 MG TABLET PO ×3 (02:21→22:58)
[2025-07-22] MEDS: SODIUM CHLORIDE 0.9% IV 1,000 ML 125 ML IV CONT (05:21)
[2025-07-22 05:24] VITALS: BP 153/82; PULSE 74; RESP 18; TEMP 36.4; O2SAT 98
[2025-07-22 05:30] LABS: Hematocrit 35.4 % (42.0-52.0); Hemoglobin 12.0 g/dL (14.0-18.0); Mean Corpuscular HGB Conc 33.9 g/dl (32-36); Mean Corpuscular Hemoglobin 29.8 pg (26-34); Mean Corpuscular Volume 87.8 fl (80-100); Platelet Count Result 206 k/mm3 (150-375); Red Blood Count 4.03 M/mm3 (4.6-6.20); White Blood Count 6.7 K/mm3 (4.5-10.0)
[2025-07-22 05:50] LABS: Anion Gap 5 mmol/L (4-12); Blood Urea Nitrogen 7 mg/dL (9-20); Calcium 8.2 mg/dL (8.4-10.2); Carbon Dioxide 23 mmol/L (22-30); Chloride 110 mmol/L (98-107); Estimated CRCL calculation 132 ml/min; Estimated Glomerular Filt Rate > 60; Glucose 86 mg/dL (65-110); Potassium 3.1 mmol/L (3.4-5.0); Sodium 138 mmol/L (137-145)
[2025-07-22] MEDS: KETOROLAC 15 MG/ML VIAL (*BKC) IV PUSH (08:11)
[2025-07-22] MEDS: ONDANSETRON INJ 4 MG/2 ML VIAL IV PUSH ×4 (08:12→22:30)
[2025-07-22] MEDS: PANTOPRAZOLE SODIUM IV 40 MG VIAL IV PUSH (08:12)
--- NOTE | 2025-07-22 08:43 | PM.DS ---
DS: Admitting Diagnosis Discharge Date 07/22 Admitting Diagnosis sbo DS: Discharge Diagnosis Discharge Diagnosis (1) SBO (small bowel obstruction): Code(s): K56.609 - Unspecified intestinal obstruction, unspecified as to partial versus complete obstruction Status: Acute (2) HTN (hypertension): Qualifiers: Hypertension type: unspecified Qualified Code(s): I10 - Essential (primary) hypertension Code(s): I10 - Essential (primary) hypertension Status: Acute (3) GERD (gastroesophageal reflux disease): Qualifiers: Esophagitis bleeding: without hemorrhage Esophagitis presence: with esophagitis Qualified Code(s): K21.00 - Gastro-esophageal reflux disease with esophagitis, without bleeding Code(s): K21.9 - Gastro-esophageal reflux disease without esophagitis Status: Acute (4) GERD with esophagitis: Code(s): K21.00 - Gastro-esophageal reflux disease with esophagitis, without bleeding Status: Acute (5) Metabolic dysfunction-associated steatotic liver disease (MASLD): Code(s): K76.0 - Fatty (change of) liver, not elsewhere classified Status: Acute DS: Summary Hospital Course Hospital Course: 55-year-old male presents [facility] on 07/18/2025 complaining of abdominal pain and inability to defecate for several days, decreased oral intake and decreased urine output. Abdominal pain is generalized and radiates to the back. He has a complicated history following hepatology at [facility] status post Quinton fundoplication in 2021 for severe acid reflux, postprocedure had C diff, since then has had alternating constipation and diarrhea. Hepatology note from [facility] documents MASLD Status post cholecystectomy. Also history of GERD, hypertension, anxiety and depression. Blood pressure 177/108 improved to 140 9/99 after Dilaudid/pain control. WBC 39353, serum creatinine 0.94, lactic acid 2.1, improved to 1.6. ALT 80, T bilirubin 1.2. CRP 2.3, lipase 2872. Serum alcohol level within normal limits. CT abdomen and pelvis with contrast demonstrates, transition point in the right lower quadrant. Patient received labetalol 10 mg IV x1, Protonix 40 mg IV x1, Zofran, morphine 4 mg IV x1, 1 L normal saline bolus. Surgery was consulted. Pt had NG tube. Normal saline at 125 cc/hour. Zofran and Dilaudid p.r.n.. Continue Protonix. -elevated lipase more likely due to vomiting/SBO. Pancreas appears normal on CT scan Small bowel series was normal 07/20 with transit time of 45 minutes. Patient has had multiple bowel movements. However, patient is still experiencing nausea and abdominal pain. He feels as though the nausea is coming from the back of his throat. Clear liquid diet ordered. Nausea had been going on for several years though. Zofran or other nausea meds typically work fine. Surgery signed off. Advancing diet. OK to discharge with a close f/u with his own GI/hepatology next week. His lipase normalized to 62. No signs of pancreatitis on the CT scan. He is s/p cholecystectomy and LFTs are normal. Following with hepatology/GI at [facility] 04/27/2025, DR Meghan ram has an gabe coming up next week. Status at Discharge Functional status at discharge: independent ambulation Overall status at discharge: patient is progressing back to baseline Time Spent with Patient Time attestation: Total time spent providing and/or coordinating discharge services: Time spent: Greater than 30 minutes Exam Const: General: comfortable and no acute distress Other: A&O x3 Eyes: Pupils: Equal, round and reactive pupils present Neck: Neck: supple Resp: Effort & Inspection: normal respiratory effort Auscultation: clear to auscultation bilaterally Cardio: Rate: regular rate Rhythm: regular rhythm GI: Auscultation: normal bowel sounds Other: Mild distension, no guarding, mild tenderness to deep palpation diffusely Neuro: Cranial nerves: Yes Equal, round and reactive pupils present Motor exam (neuro): 5/5 motor strength present throughout Extrem: General: no edema DS: Data Data Completed and Pending Labs on day of discharge: Labs from last 24 hours 07/22/25 05:19 WBC 6.7 RBC 4.03 L Hgb 12.0 L Hct 35.4 L MCV 87.8 MCH 29.8 MCHC 33.9 RDW 12.6 Plt Count 206 MPV 8.8 Sodium 138 Potassium 3.1 L Chloride 110 H Carbon Dioxide 23 Anion Gap 5 BUN 7 L D Creatinine 0.68 L Estim Creat Clear Calc 132 Estimated GFR > 60 Glucose 86 Calcium 8.2 L Discharge Plan Discharge Attending physician on discharge: Joanie Huerta Consulting providers: Zach Maravillaarging Clinician: Priya Sanchez Patient Disposition: Home Activity: may shower Diet: other - see discharge instructions Discharge Instructions: What Happened During Your Hospital Stay You were admitted to [facility] on July 18, 2025, with abdominal pain, constipation, decreased eating and drinking, and decreased urine output. Your symptoms improved with bowel rest, intravenous fluids, and pain control. Your blood pressure, which was initially elevated due to pain, returned to a more normal range after treatment. Medications Continue all your regular home medications unless instructed otherwise by your doctor. Important medication instructions: - Constipation management: You may need to start or adjust medications to prevent constipation from returning. First-line options include scheduled toileting after meals, increased fluid intake, increased fiber, and regular exercise. If lifestyle changes are not enough, consider stimulant laxatives (such as senna) or osmotic laxatives (such as polyethylene glycol or magnesium-containing laxatives). - Avoid medications that worsen constipation: Opioid pain medications, certain antidepressants, and calcium supplements can make constipation worse. Use these only as directed and discuss alternatives with your doctor if constipation becomes a problem. Diet and Fluids - Start slowly: Begin with clear liquids (water, broth, juice without pulp, gelatin). Once you tolerate clear liquids without nausea, vomiting, or increased pain, advance to soft foods. - Avoid certain foods initially: For the first two weeks, avoid meat, bread, and carbonated beverages. - Drink plenty of fluids: Aim for 8-10 glasses of water per day to prevent dehydration and help with bowel function. This is especially important given your liver disease. - Eat regular meals: Do not skip meals. Patients with liver disease should eat regular meals including a nighttime snack to prevent overnight fasting, which can worsen metabolism. - Moderate sodium intake: Limit salt to about 2,000 mg per day (about 1 teaspoon) to help manage fluid retention related to your liver disease. Activity - Resume light activities as tolerated - Avoid heavy lifting (more than 10 pounds) and strenuous exercise for one week - Regular walking and gentle exercise can help prevent constipation[ - Full recovery typically takes two to three weeks What to Monitor at Home Bowel Function: - You should have regular bowel movements. If you go more than 2-3 days without a bowel movement, contact your doctor. - Monitor the consistency of your stools. Hard, [id number] stools may indicate you need more fluids, fiber, or laxatives Fluid Status: - Monitor your weight daily. Sudden weight gain (more than 2-3 pounds in a day or 5 pounds in a week) may indicate fluid retention and should be reported to your doctor - Watch for swelling in your feet, ankles, or abdomen. Electrolytes and Nutrition: - Your body may need time to restore normal electrolyte levels after this illness. Eat a balanced diet and stay well-hydrated. When to Call Your Doctor Contact your doctor's office during business hours if you have: - No bowel movement for 2-3 days - Worsening constipation despite following recommendations - Persistent nausea or decreased appetite - Gradual weight gain or increasing abdominal swelling - Questions about your medications or diet When to Seek Emergency Care Go to the emergency department or call 911 if you experience: - Severe abdominal pain that is not relieved by medication - Inability to pass gas or have a bowel movement along with severe pain, nausea, or vomiting - Persistent vomiting that prevents you from keeping down food or liquids - Fever over 100.4?F (38?C) - Blood in your vomit or stool (black, tarry stools or bright red blood) - Severe confusion or difficulty staying awake - Yellowing of your skin or eyes (jaundice) - Severe abdominal swelling that develops rapidly These symptoms could indicate a serious complication such as bowel obstruction, infection, or liver-related problems that need immediate attention. Follow-Up Care - Hepatology appointment at [facility]: Continue your regular follow-up for your liver disease (MASLD). Your technical product manager will monitor your liver function and may adjust your treatment plan. - Primary care or gastroenterology follow-up: Schedule an appointment within 1-2 weeks to ensure your bowel function has returned to normal and to address any ongoing constipation issues. Special Considerations for Your Medical History Given your history of Quinton fundoplication (anti-reflux surgery), liver disease, and previous bowel problems: - Avoid overeating: Eat smaller, more frequent meals rather than large meals, which can cause discomfort after Quinton fundoplication. - Stay upright after eating: Remain upright for at least 30 minutes after meals to aid digestion. - Monitor for liver complications: Your liver disease requires ongoing attention to nutrition, fluid balance, and medication management - Prevent future episodes: Work with your doctors to identify and address the underlying cause of your constipation to prevent future hospitalizations. Important Reminders - Take all medications as prescribed - Drink plenty of fluids throughout the day - Eat regular, balanced meals with adequate protein (about 1 gram per kilogram of body weight per day) - Stay active with regular, gentle exercise - Monitor your bowel movements and report any concerns early - Keep all follow-up appointments If you have any questions or concerns about your care at home, please contact your doctor's office. Patient Instructions: Antibiotic Form Patient Language: Bahamian Stand Alone Forms: General Discharge Information Follow-up/Referrals: hepatology [Other] - 2 Weeks Referral Note: f/u with your GI Satya Jiménez MD [Primary Care Provider, Internal Medicine] - 1 Week Discharge Medications: New ketorolac 10 mg tablet 10 mg PO Q8H PRN (Reason: pain) Qty: 7 0RF Rx Instructions: maximum total duration of 5 days from all oral, intranasal, or parenteral formulations ondansetron 4 mg tablet,disintegrating 4 mg PO Q8H PRN (Reason: nausea and vomiting) Qty: 14 0RF Continued topiramate [Topamax] 100 mg tablet 100 mg PO DAILY nortriptyline 10 mg capsule 10 mg PO DAILY propranolol 20 mg tablet 20 mg PO BID topiramate 200 mg tablet 200 mg PO QAM trazodone 50 mg tablet 100 mg PO QHS PRN (Reason: insomnia) methylphenidate HCl [Concerta] 18 mg tablet extended release 24hr 18 mg PO QAM PRN (Reason: adhd) loratadine [Claritin] 10 mg tablet 10 mg PO DAILY Qty: 30 0RF topiramate 100 mg tablet 100 mg PO .afternoon rizatriptan 10 mg tablet See Rx Instructions .ROUTE .COMPLEX Qty: 9 3RF Dose Instruction: TAKE 1 TABLET BY MOUTH ONE TIME NEEDED FOR MIGRAINE HEADACHE. MAY REPEAT ONE TIME AT LEAST 2 HOURS LATER Rx Instructions: TAKE 1 TABLET BY MOUTH ONE TIME NEEDED FOR MIGRAINE HEADACHE. MAY REPEAT ONE TIME AT LEAST 2 HOURS LATER baclofen 20 mg tablet See Rx Instructions .ROUTE .COMPLEX Qty: 90 2RF Dose Instruction: TAKE 1 TABLET BY MOUTH 4 TIMES DAILY NEEDED FOR MUSCLE SPASM Rx Instructions: TAKE 1 TABLET BY MOUTH 4 TIMES DAILY NEEDED FOR MUSCLE SPASM alprazolam 0.5 mg tablet 0.5 mg PO TID PRN (Reason: Anxiety) Qty: 30 1RF Date of admission: 07/19/25 09:37 Primary Care Provider: Satya Dockery Admitting Provider: Tanisha Cordero Attending physician on admission: Tanisha Cordero Condition: Serious
[2025-07-22] MEDS: POTASSIUM CHLORIDE INJ 40 MEQ in SODIUM CHLORIDE 0.9% IV 500 ML 130 MEQ IVPB (12:34)
[2025-07-22 14:00] VITALS: BP 148/56; PULSE 78; RESP 18; TEMP 36.8; O2SAT 98
[2025-07-22 21:41] VITALS: BP 147/90; PULSE 75; RESP 18; TEMP 36.6; O2SAT 97
[2025-07-22] MEDS: IBUPROFEN 400 MG TABLET 800 MG PO (22:56)
[2025-07-23 06:00] VITALS: BP 140/77; PULSE 60; RESP 16; TEMP 36.4; O2SAT 97
[2025-07-23] MEDS: PANTOPRAZOLE SODIUM IV 40 MG VIAL IV PUSH (08:07)
[2025-07-23] MEDS: ONDANSETRON INJ 4 MG/2 ML VIAL IV PUSH (08:07)
--- NOTE | 2025-07-23 09:07 | P.DS_ITS ---
DS: Admitting Diagnosis Discharge Date 07/23 Admitting Diagnosis sbo DS: Discharge Diagnosis Discharge Diagnosis (1) SBO (small bowel obstruction): Code(s): K56.609 - Unspecified intestinal obstruction, unspecified as to partial versus complete obstruction Status: Acute (2) HTN (hypertension): Qualifiers: Hypertension type: unspecified Qualified Code(s): I10 - Essential (primary) hypertension Code(s): I10 - Essential (primary) hypertension Status: Acute (3) GERD (gastroesophageal reflux disease): Qualifiers: Esophagitis bleeding: without hemorrhage Esophagitis presence: with esophagitis Qualified Code(s): K21.00 - Gastro-esophageal reflux disease with esophagitis, without bleeding Code(s): K21.9 - Gastro-esophageal reflux disease without esophagitis Status: Acute (4) GERD with esophagitis: Code(s): K21.00 - Gastro-esophageal reflux disease with esophagitis, without bleeding Status: Acute (5) Metabolic dysfunction-associated steatotic liver disease (MASLD): Code(s): K76.0 - Fatty (change of) liver, not elsewhere classified Status: Acute Plan 55-year-old male presents [facility] on 07/18/2025 complaining of abdominal pain and inability to defecate for several days, decreased oral intake and decreased urine output. Abdominal pain is generalized and radiates to the back. He has a complicated history following hepatology at [facility] status post Quinton fundoplication in 2021 for severe acid reflux, postprocedure had C diff, since then has had alternating constipation and diarrhea. Hepatology note from [facility] documents MASLD Status post cholecystectomy. Also history of GERD, hypertension, anxiety and depression. Blood pressure 177/108 improved to 140 9/99 after Dilaudid/pain control. WBC 54408, serum creatinine 0.94, lactic acid 2.1, improved to 1.6. ALT 80, T bilirubin 1.2. CRP 2.3, lipase 2872. Serum alcohol level within normal limits. CT abdomen and pelvis with contrast demonstrates, transition point in the right lower quadrant. Patient received labetalol 10 mg IV x1, Protonix 40 mg IV x1, Zofran, morphine 4 mg IV x1, 1 L normal saline bolus. --- SBO -NG tube inserted. NPO. General surgery consulted. Normal saline at 125 cc/hour. Zofran and Dilaudid p.r.n.. Continue Protonix. -elevated lipase more likely due to vomiting/SBO. Pancreas appears normal on CT scan Elevated blood pressure -improved status post pain control. Labetalol 10 mg IV x1 given, continue to follow blood pressure trend. Hold [employer]ED [employer]YOR p.o. antihypertensives. ---- 07/19 awaiting surgery consult -continue pain and nausea control NPO - BP this am 147/99 following with hepatology at [facility] 04/27/2025, DR Carlin -will add pain med for pain 4-6 07/20 surgery is following- appreciate recommendations Will allow ice chips with NG tube this time to help with some of NG discomfort. - Dulcolax suppository. - Gastrografin small-bowel follow-through today. - pain is well controlled - wbc downtrending 6.1 (10.6 yesterday) 07/21 NG was removed yesterday, he is doing better, anxious this am. he normally takes xanax at home as needed.will reorder. Clear liquid ordered per surgery. - nausea- surgery will consult GI? Patient wishes to be full code SCDs Expected length of stay greater than 2 midnights DS: Summary Hospital Course Hospital Course: 55-year-old male presents [facility] on 07/18/2025 complaining of abdominal pain and inability to defecate for several days, decreased oral intake and decreased urine output. Abdominal pain is generalized and radiates to the back. He has a complicated history [facility] status post Quinton fundoplication in 2021 for severe acid reflux, postprocedure had C diff, since then has had alternating constipation and diarrhea. Hepatology note from [facility] documents MASLD Status post cholecystectomy. Also history of GERD, hypertension, anxiety and depression. Blood pressure 177/108 improved to 140 9/99 after Dilaudid/pain control. WBC 75471, serum creatinine 0.94, lactic acid 2.1, improved to 1.6. ALT 80, T bilirubin 1.2. CRP 2.3, lipase 2872. Serum alcohol level within normal limits. CT abdomen and pelvis with contrast demonstrates, transition point in the right lower quadrant. Patient received labetalol 10 mg IV x1, Protonix 40 mg IV x1, Zofran, morphine 4 mg IV x1, 1 L normal saline bolus. Surgery was consulted. Pt had NG tube. Normal saline at 125 cc/hour. Zofran and Dilaudid p.r.n.. Continue Protonix. -elevated lipase more likely due to vomiting/SBO. Pancreas appears normal on CT scan Small bowel series was normal 07/20 with transit time of 45 minutes. Patient has had multiple bowel movements. However, patient is still experiencing nausea and abdominal pain. He feels as though the nausea is coming from the back of his throat. Clear liquid diet ordered. Nausea had been going on for several years though. Zofran or other nausea meds typically work fine. Surgery signed off. Advancing diet. OK to discharge with a close f/u with his own GI/hepatology next week. His lipase normalized to 62. No signs of pancreatitis on the CT scan. He is s/p cholecystectomy and LFTs are normal. Pt was supposed to be discharged last night as he was tolerating foods ok. BUt he wanted to stay overnight to ensure stable. He ate breakfast and tolerated it well. Ready for discharge. Status at Discharge Functional status at discharge: independent ambulation Overall status at discharge: patient is back to baseline Time Spent with Patient Time attestation: Total time spent providing and/or coordinating discharge services: Time spent: Less than 30 minutes Exam Const: General: comfortable and no acute distress Other: A&O x3 Eyes: Pupils: Equal, round and reactive pupils present Neck: Neck: supple Resp: Effort & Inspection: normal respiratory effort Auscultation: clear to auscultation bilaterally Cardio: Rate: regular rate Rhythm: regular rhythm GI: Auscultation: normal bowel sounds Other: Mild distension, no guarding, mild tenderness to deep palpation diffusely Neuro: Cranial nerves: Yes Equal, round and reactive pupils present Motor exam (neuro): 5/5 motor strength present throughout Extrem: General: no edema Discharge Plan Discharge Attending physician on discharge: Joanie Huerta Consulting providers: Zach Maravilla Discharging Clinician: Priya Sanchez Patient Disposition: Home Activity: december shower Diet: other - see discharge instructions Discharge Instructions: What Happened During Your Hospital Stay You were admitted to [facility] on July 18, 2025, with abdominal pain, constipation, decreased eating and drinking, and decreased urine output. Your symptoms improved with bowel rest, intravenous fluids, and pain control. Your blood pressure, which was initially elevated due to pain, returned to a more normal range after treatment. Medications Continue all your regular home medications unless instructed otherwise by your doctor. Important medication instructions: - Constipation management: You may need to start or adjust medications to prevent constipation from returning. First-line options include scheduled toileting after meals, increased fluid intake, increased fiber, and regular exercise. If lifestyle changes are not enough, consider stimulant laxatives (such as senna) or osmotic laxatives (such as polyethylene glycol or magnesium- containing laxatives). - Avoid medications that worsen constipation: Opioid pain medications, certain antidepressants, and calcium supplements can make constipation worse. Use these only as directed and discuss alternatives with your doctor if constipation becomes a problem. Diet and Fluids - Start slowly: Begin with clear liquids (water, broth, juice without pulp, gelatin). Once you tolerate clear liquids without nausea, vomiting, or increased pain, advance to soft foods. - Avoid certain foods initially: For the first two weeks, avoid meat, bread, and carbonated beverages. - Drink plenty of fluids: Aim for 8-10 glasses of water per day to prevent dehydration and help with bowel function. This is especially important given your liver disease. - Eat regular meals: Do not skip meals. Patients with liver disease should eat regular meals including a nighttime snack to prevent overnight fasting, which can worsen metabolism. - Moderate sodium intake: Limit salt to about 2,000 mg per day (about 1 teaspoon) to help manage fluid retention related to your liver disease. Activity - Resume light activities as tolerated - Avoid heavy lifting (more than 10 pounds) and strenuous exercise for one week - Regular walking and gentle exercise can help prevent constipation[ - Full recovery typically takes two to three weeks What to Monitor at Home Bowel Function: - You should have regular bowel movements. If you go more than 2-3 days without a bowel movement, contact your doctor. - Monitor the consistency of your stools. Hard, [id number] stools may indicate you need more fluids, fiber, or laxatives Fluid Status: - Monitor your weight daily. Sudden weight gain (more than 2-3 pounds in a day or 5 pounds in a week) may indicate fluid retention and should be reported to your doctor - Watch for swelling in your feet, ankles, or abdomen. Electrolytes and Nutrition: - Your body may need time to restore normal electrolyte levels after this illness. Eat a balanced diet and stay well-hydrated. When to Call Your Doctor Contact your doctor's office during business hours if you have: - No bowel movement for 2-3 days - Worsening constipation despite following recommendations - Persistent nausea or decreased appetite - Gradual weight gain or increasing abdominal swelling - Questions about your medications or diet When to Seek Emergency Care Go to the emergency department or call 911 if you experience: - Severe abdominal pain that is not relieved by medication - Inability to pass gas or have a bowel movement along with severe pain, nausea, or vomiting - Persistent vomiting that prevents you from keeping down food or liquids - Fever over 100.4?F (38?C) - Blood in your vomit or stool (black, tarry stools or bright red blood) - Severe confusion or difficulty staying awake - Yellowing of your skin or eyes (jaundice) - Severe abdominal swelling that develops rapidly These symptoms could indicate a serious complication such as bowel obstruction, infection, or liver-related problems that need immediate attention. Follow-Up Care - Hepatology appointment at [facility]: Continue your regular follow-up for your liver disease (MASLD). Your chicken and fish butcher will monitor your liver function and may adjust your treatment plan. - Primary care or gastroenterology follow-up: Schedule an appointment within 1-2 weeks to ensure your bowel function has returned to normal and to address any ongoing constipation issues. Special Considerations for Your Medical History Given your history of Quinton fundoplication (anti-reflux surgery), liver disease, and previous bowel problems: - Avoid overeating: Eat smaller, more frequent meals rather than large meals, which can cause discomfort after Quinton fundoplication. - Stay upright after eating: Remain upright for at least 30 minutes after meals to aid digestion. - Monitor for liver complications: Your liver disease requires ongoing attention to nutrition, fluid balance, and medication management - Prevent future episodes: Work with your doctors to identify and address the underlying cause of your constipation to prevent future hospitalizations. Important Reminders - Take all medications as prescribed - Drink plenty of fluids throughout the day - Eat regular, balanced meals with adequate protein (about 1 gram per kilogram of body weight per day) - Stay active with regular, gentle exercise - Monitor your bowel movements and report any concerns early - Keep all follow-up appointments If you have any questions or concerns about your care at home, please contact your doctor's office. Patient Instructions: Antibiotic Form Patient Language: Malay Stand Alone Forms: General Discharge Information Follow-up/Referrals: hepatology [Other] - 2 Weeks Referral Note: f/u with your GI Satya Jiménez MD [Primary Care Provider, Internal Medicine] - 1 Week Discharge Medications: New ketorolac 10 mg tablet 10 mg PO Q8H PRN (Reason: pain) Qty: 7 0RF Rx Instructions: maximum total duration of 5 days from all oral, intranasal, or parenteral formulations ondansetron 4 mg tablet,disintegrating 4 mg PO Q8H PRN (Reason: nausea and vomiting) Qty: 14 0RF Continued topiramate [Topamax] 100 mg tablet 100 mg PO DAILY nortriptyline 10 mg capsule 10 mg PO DAILY propranolol 20 mg tablet 20 mg PO BID topiramate 200 mg tablet 200 mg PO QAM trazodone 50 mg tablet 100 mg PO QHS PRN (Reason: insomnia) methylphenidate HCl [Concerta] 18 mg tablet extended release 24hr 18 mg PO QAM PRN (Reason: adhd) loratadine [Claritin] 10 mg tablet 10 mg PO DAILY Qty: 30 0RF topiramate 100 mg tablet 100 mg PO .afternoon rizatriptan 10 mg tablet See Rx Instructions .ROUTE .COMPLEX Qty: 9 3RF Dose Instruction: TAKE 1 TABLET BY MOUTH ONE TIME NEEDED FOR MIGRAINE HEADACHE. MAY REPEAT ONE TIME AT LEAST 2 HOURS LATER Rx Instructions: TAKE 1 TABLET BY MOUTH ONE TIME NEEDED FOR MIGRAINE HEADACHE. MAY REPEAT ONE TIME AT LEAST 2 HOURS LATER baclofen 20 mg tablet See Rx Instructions .ROUTE .COMPLEX Qty: 90 2RF Dose Instruction: TAKE 1 TABLET BY MOUTH 4 TIMES DAILY NEEDED FOR MUSCLE SPASM Rx Instructions: TAKE 1 TABLET BY MOUTH 4 TIMES DAILY NEEDED FOR MUSCLE SPASM alprazolam 0.5 mg tablet 0.5 mg PO TID PRN (Reason: Anxiety) Qty: 30 1RF Date of admission: 07/19/25 09:37 Primary Care Provider: Satya Dockery Admitting Provider: Tanisha Cordero Attending physician on admission: Tanisha Cordero Condition: Stable Hospitalist MIPS Heart Failure (Exclusion) Patient has history of Heart Transplant or Left Ventricular Assistive Device?: No IF YES, STOP HERE Heart Failure (Qualifier) Patient has current or prior documentation of LVEF less than or equal to 40%, or mod/servere depressed LVSF?: No IF NO, STOP HERE
== END 2025-07-23 11:35 | disposition home or self-care (01) | DRG 390 ==
LOC: ANHED 22:42 → ANH2MED 23:15
PROVIDERS: Nurse Practitioner Family; Admitting Provider General Practice; Emergency Provider Student in an Organized Health Care Education/Training Program; PCP Emergency Medicine; Visit Provider Nurse Practitioner
DX: K56.609 Unspecified intestinal obstruction, unspecified as to partial versus complete obstruction (principal); I10 Essential (primary) hypertension; K76.0 Fatty (change of) liver, not elsewhere classified; F41.8 Other specified anxiety disorders; K21.9 Gastro-esophageal reflux disease without esophagitis; R13.10 Dysphagia, unspecified; Z90.49 Acquired absence of other specified parts of digestive tract; Z98.1 Arthrodesis status
CPT/HCPCS: 36415; 74177; 74250; 80048; 80053; 80307; 81001; 82077; 83605; 83690; 83735; 84443; 84484; 85025; 85027; 85610; 85730; 86140; 93005; 96361; 96374; 96375; 96376; 99285; A9270; G0378; J1171; J1885; J2270; J2405; J2470; J3480; J7030; J7040; Q9967